=== PATIENT | female | born 1955 | race Caucasian/White ===

== ENCOUNTER 2018-11-29 09:43 | Emergency (ER) | payer BC, SELFPAY ==
[2018-11-29 09:45] VITALS: BP 211/95; PULSE 79; RESP 16; TEMP 36.6; O2SAT 99; BMI 28.7
--- NOTE | 2018-11-29 09:58 | ED.GENADULT ---
HPI - General Adult General Chief complaint: Skin/Abscess/Foreign Body Stated complaint: right pinky cut Time Seen by Provider: 11/29/18 09:53 Source: patient Mode of arrival: ambulatory Limitations: no limitations History of Present Illness HPI narrative: patient is a [id number] 63-year-old female here for evaluation of a cut/ injury to her right hand. She states that last evening she got her hand caught in a folding chair. She states that when she tried to pull her hand out she thought that she did more damage. She stated that her last tetanus shot was in the past 5 years. Did wash the hand out. Came in this morning for evaluation. Related Data Home Medications Medication Instructions Recorded Confirmed ACETAMINOPHEN 325 mg PO Q4HP PRN #0 05/10/16 fenofibrate 160 mg PO QDAY #0 tab 05/10/16 Previous Rx's Medication Instructions Recorded albuterol sulfate [Ventolin HFA] 2 puff INH Q4HP PRN #1 ea 09/21/17 benzonatate [Tessalon Perles] 100 mg PO Q8HP PRN #14 cap 09/21/17 prednisone 40 mg PO AMCC #8 tab 09/21/17 sulfamethoxazole-trimethoprim 1 tab PO BID #14 tab 09/21/17 cephalexin [Keflex] 500 mg PO BID 7 Days #14 cap 11/29/18 Allergies Allergy/AdvReac Type Severity Reaction Status Date / Time No Known Drug Allergies Allergy Verified 11/29/18 09:59 Review of Systems Constitutional Denies fever(s) Musculoskeletal Comments: Right hand pain and swelling Integumentary/Breasts Comments: Cut to the right hand Neurologic Comments: No numbness tingling to the right hand Hematologic/Lymphatic Denies easy bleeding and Denies easy bruising PFS Medical History Healthy adult (Acute) Social History lives independently: Yes Smoking Status: Current every day smoker Social History lives independently: Yes Smoking Status: Current every day smoker Exam Initial Vital Signs Initial Vital Signs: Vital Signs Temperature 97.9 F 11/29/18 09:45 Pulse Rate 79 11/29/18 09:45 Respiratory Rate 16 11/29/18 09:45 Blood Pressure 211/95 H 11/29/18 09:45 Pulse Oximetry 99 11/29/18 09:45 Const General: cooperative, comfortable, well developed, well groomed and No acute distress Orientation: alert, awake and oriented x3 Cardio Pulses: radial pulses present on the right Skin Other: Patient with a 3 cm laceration in the webspace between the ring and little finger on the right hand. No active bleeding. Neuro Other: Sensation intact to light touch right upper extremity Extrem Other: Patient with a swollen right hand mostly on the dorsum aspect. Does have tenderness to palpation throughout. Psych Appearance: grossly normal and well kempt Procedures Laceration Repair Laceration 1: Site: hand Side (If applicable): right Size (cm): 3 Description: linear and clean Depth: simple, single layer Local Anesthetic: lidocaine 1% Amount of anesthesia used (mL): 5 Pre-repair: wound explored, irrigated extensively and deep structures intact Skin layer closed with: nylon Size (cm): 4-0 Number of sutures: 7 Technique: simple, interrupted Orthopedic Splinting/Casting Injury #1: Side: right Upper Extremity Injury Location: hand Upper Extremity Immobilizer: ulnar gutter Post splinting neuro exam: intact Post splinting vascular exam: intact Placed by: Provider Course Orders Ordered: ED Orders 11/29/18 09:57 XR hand RT min 3V Stat Discontinued Medications Cefazolin Sodium/Dextrose (Ancef) 2 gm in 100 mls @ 200 mls/hr IV NOW ONE Stop: 11/29/18 10:43 Last Admin: 11/29/18 10:45 Dose: 200 mls/hr Vital Signs - 8 hr 11/29/18 09:45 11/29/18 10:22 Temperature 97.9 F Pulse Rate 79 70 Respiratory Rate 16 14 Blood Pressure 211/95 H Blood Pressure [Left Arm] 205/85 H Pulse Oximetry 99 Medical Decision Making Imaging Data X-ray hand: Radiologist's impression: [address] [address] XRay Report Signed Patient: Kaitlyn Ashley JMR#: [id number] : 5Acct:[id number] Age/Sex: 63 / FDate of Service: 11/29/18 Loc: ED Accession Number: [id number] Procedure: XR hand RT min 3V Ordering Provider: Alvaro Prieto D.O. PROCEDURE: XR HAND RT MIN 3V INDICATIONS: Right hand pain after injury TECHNIQUE: 3 views of the hand(s) acquired. COMPARISON: None. FINDINGS: Bones: Moderately displaced oblique fracture of the mid and distal aspects of the 5th metacarpal. Mild joint space narrowing and periarticular osteophyte formation at the scaphotrapezial and 1st carpal metacarpal joints. Soft tissues: No suspicious soft tissue calcifications. IMPRESSION: 5th metacarpal fracture. Dictated by: Hakan Concepcion M.D. on 11/29/2018 at 10:08 Approved by: Hakan Concepcion M.D. on 11/29/2018 at 10:09 [facility] Narrative Medical decision making narrative: Patient is a cut in the webspace between the ring and little finger of the right hand. This was closed as described above. She does have a 5th metacarpal fracture. This is placed in an ulnar gutter splint. Patient is neurologically intact. She was given care instructions return precautions. She will follow up with the Orthopedic Department. Patient was given antibiotics here in the emergency department will send home with antibiotics. She expressed understanding and agreement with plan. Discharge Plan Departure Patient Disposition: Home Clinical Impression: Laceration of hand, right Qualifiers: Encounter type: initial encounter Foreign body presence: without foreign body Qualified Code(s): S61.411A - Laceration without foreign body of right hand, initial encounter Closed fracture of fifth metacarpal bone Qualifiers: Encounter type: initial encounter Metacarpal location: shaft Fracture alignment: displaced Laterality: right Qualified Code(s): S62.326A - Displaced fracture of shaft of fifth metacarpal bone, right hand, initial encounter for closed fracture Instructions: DI for a Hand Fracture, DI for Laceration Repair -- Finger, How to Take Care of Your Splint Activity Restrictions/Additional Instructions: Recommend you contact the [facility]opedic group at [phone] for a follow-up. The stitches that were placed due need to be removed in 7-10 days. This can be done when your splint is transition to a cast. The splint does need to stay on. You need to keep it clean and keep it dry. Contact her primary care doctor for follow-up. Take the antibiotics as directed. Prescriptions: New cephalexin [Keflex] 500 mg capsule 500 mg PO BID 7 Days Qty: 14 RF: 0 No Action ACETAMINOPHEN 325 mg PO Q4HP PRNQty: 0 RF: 0 fenofibrate 160 MG tablet 160 mg PO QDAY Qty: 0 RF: 0 prednisone 20 MG tablet 40 mg PO AMCC Qty: 8 RF: 0 sulfamethoxazole-trimethoprim 800 MG/160 MG tablet 1 tab PO BID Qty: 14 RF: 0 benzonatate [Tessalon Perles] 100 MG capsule 100 mg PO Q8HP PRNQty: 14 RF: 0 albuterol sulfate [Ventolin HFA] 90 MCG/PUFF HFA aerosol inhaler 2 puff INH Q4HP PRNQty: 1 RF: 0 Referrals: Amanda Soliz MD [Primary Care Provider] -
[2018-11-29 10:22] VITALS: BP 205/85; PULSE 70; RESP 14
[2018-11-29] MEDS: CEFAZOLIN 2 GM/100 ML FROZ.PIGGY IV (10:45)
[2018-11-29 11:16] VITALS: BP 189/89; PULSE 72; RESP 14
== END 2018-11-29 11:19 | disposition home or self-care (01) ==
PROVIDERS: Emergency Provider Emergency Medicine; PCP Internal Medicine
DX: S62.326A Displaced fracture of shaft of fifth metacarpal bone, right hand, initial encounter for closed fracture (principal); S61.411A Laceration without foreign body of right hand, initial encounter
CPT/HCPCS: 12002; 73130; 96365; 99283; 99284; J0690

== ENCOUNTER → 2019-04-21 09:40 | Outpatient (CLI) | payer BC, SELFPAY | PROVIDERS: PCP Internal Medicine; Visit Provider Physician Assistant | DX: S91.302A Unspecified open wound, left foot, initial encounter (principal) | CPT/HCPCS: 87070; 87205 ==

== ENCOUNTER → 2019-08-16 18:19 | Outpatient (ROUT) | payer BC, SELFPAY ==
[2019-08-16 19:07] LABS: Alanine Aminotransferase 37 IU/L (<35); Albumin 4.4 g/dL (3.5-5.0); Albumin Globulin Ratio 1.6 (1.0-2.8); Alkaline Phosphatase 87 U/L (38-126); Aspartate Aminotransferase 41 IU/L (14-36); BUN Creatinine Ratio 21.4 (6-22); Bilirubin Total 0.8 mg/dL (0.2-1.3); Blood Urea Nitrogen 15 mg/dL (7-17); Calcium 9.9 mg/dL (8.4-10.2); Carbon Dioxide 28 mmol/L (22-32); Chloride 104 mmol/L (98-107); Cholesterol 257 mg/dL (140-199); Estimated Glomerular Filt Rate > 60.0 mL/min (>60); Globulin 2.8 g/dL (1.7-4.1); Glucose 111 mg/dL (80-110); HDL Cholesterol 85 mg/dL (40-60); HEMOLYSIS < 15 (0-50); LDL Cholesterol Calculated 124 mg/dL (<100); Sodium 141 mmol/L (137-145); Total Protein 7.2 g/dL (6.3-8.2); Triglycerides 242 mg/dL (35-150)
== END ==
PROVIDERS: PCP Internal Medicine; Visit Provider Internal Medicine
DX: I10 Essential (primary) hypertension (principal); E78.2 Mixed hyperlipidemia
CPT/HCPCS: 80053; 80061

== ENCOUNTER → 2020-03-27 08:29 | Outpatient (CLI) | payer BC, SELFPAY ==
[2020-03-27 10:37] LABS: Alanine Aminotransferase 101 IU/L (<35); Albumin 3.6 g/dL (3.5-5.0); Albumin Globulin Ratio 1.2 (1.0-2.8); Alkaline Phosphatase 158 U/L (38-126); Aspartate Aminotransferase 127 IU/L (14-36); BUN Creatinine Ratio 16.5 (6-22); Bilirubin Total 0.7 mg/dL (0.2-1.3); Blood Urea Nitrogen 17 mg/dL (7-17); Calcium 8.4 mg/dL (8.4-10.2); Carbon Dioxide 22 mmol/L (22-32); Chloride 107 mmol/L (98-107); Cholesterol 306 mg/dL (140-199); Estimated Glomerular Filt Rate 53.9 mL/min (>60); Glucose 123 mg/dL (80-110); HDL Cholesterol 52 mg/dL (40-60); HEMOLYSIS < 15 (0-50); Potassium 4.5 mmol/L (3.4-5.1); Sodium 137 mmol/L (137-145); Total Protein 6.6 g/dL (6.3-8.2)
[2020-03-27 11:10] LABS: Triglycerides 1890 mg/dL (35-150)
== END ==
PROVIDERS: PCP Internal Medicine; Referring Provider Internal Medicine; Visit Provider Internal Medicine
DX: E78.2 Mixed hyperlipidemia (principal); I10 Essential (primary) hypertension
CPT/HCPCS: 36415; 80053; 80061

== ENCOUNTER → 2020-11-01 12:31 | Outpatient (CLI) | payer OTHER, SELFPAY ==
[2020-11-01 13:43] LABS: Add Manual Diff / Slide Review NO; Basophils Absolute Auto 0 /uL (0-100); Basophils Percent Auto 0.5 % (0-2); Eosinophils Absolute Auto 100 /uL (0-450); Eosinophils Percent Auto 0.9 % (2-4); Hemoglobin 13.5 g/dL (12.0-16.0); Lymphocytes Absolute Auto 1700 /uL (1100-4500); Mean Corpuscular HGB Conc 34.7 % (30-36); Mean Corpuscular Hemoglobin 33.9 PG (26-34); Mean Corpuscular Volume 97.8 fL (80-100); Monocytes Absolute Auto 500 /uL (0-900); Monocytes Percent Auto 7.6 % (3-14); Neutrophils Absolute Auto 4300 /uL (1500-7000); Platelet Count 251 X10^3/uL (150-400); Red Blood Cell Count 3.99 X10^6/uL (4.0-5.2); Red Cell Distribution Width 12.1 % (11.6-14.8); White Blood Cell Count 6.6 X10^3/uL (4.5-11.0)
[2020-11-01 13:51] LABS: Hemoglobin A1C% w Est Avg Glu 5.7 % (4.0-6.0)
[2020-11-01 14:36] LABS: Alanine Aminotransferase 46 IU/L (<35); Albumin 4.5 g/dL (3.5-5.0); Albumin Globulin Ratio 1.5 (1.0-2.8); Alkaline Phosphatase 77 U/L (38-126); Aspartate Aminotransferase 48 IU/L (14-36); BUN Creatinine Ratio 23.2 (6-22); Bilirubin Total 1.5 mg/dL (0.2-1.3); Blood Urea Nitrogen 16 mg/dL (7-17); Calcium 9.8 mg/dL (8.4-10.2); Carbon Dioxide 25 mmol/L (22-32); Chloride 102 mmol/L (98-107); Cholesterol 258 mg/dL (140-199); Estimated Glomerular Filt Rate > 60.0 mL/min (>60); Glucose 118 mg/dL (80-110); HDL Cholesterol 90 mg/dL (40-60); HEMOLYSIS < 15 (0-50); LDL Cholesterol Calculated 134 mg/dL (<100); Potassium 4.4 mmol/L (3.4-5.1); Sodium 135 mmol/L (137-145); Total Protein 7.5 g/dL (6.3-8.2); Triglycerides 169 mg/dL (35-150)
== END ==
PROVIDERS: PCP Internal Medicine; Referring Provider Internal Medicine; Visit Provider Orthopaedic Surgery Adult Reconstructive Orthopaedic Surgery
DX: I10 Essential (primary) hypertension (principal); E78.2 Mixed hyperlipidemia; R73.01 Impaired fasting glucose; Z01.812 Encounter for preprocedural laboratory examination; R73.9 Hyperglycemia, unspecified
CPT/HCPCS: 36415; 80053; 80061; 83036; 85025

== ENCOUNTER → 2020-11-18 14:30 | Outpatient (CLI) | payer OTHER, SELFPAY ==
[2020-11-18 17:15] LABS: COVID19 -Nasal RAPID Negative (Negative)
== END ==
PROVIDERS: PCP Internal Medicine; Visit Provider Physician Assistant
DX: Z01.812 Encounter for preprocedural laboratory examination (principal); Z20.822 Contact with and (suspected) exposure to COVID-19
CPT/HCPCS: 87635

== ENCOUNTER 2020-11-20 06:08 | Inpatient (IN) | payer OTHER, MEDICARE, SELFPAY ==
[2020-11-20] VITALS (16 sets, daily range): BP systolic 98–162; BP diastolic 46–79; PULSE 49–65; RESP 9–19; TEMP 36–36.6; O2SAT 90–99; BMI 26.4
--- NOTE | 2020-11-20 | DI.RAD.S_ITS ---
PROCEDURE: XR PELVIS 1-2V INDICATIONS: POST OP CUP REPLACEMENT TECHNIQUE: 1 view of the lower pelvis acquired. COMPARISON: [facility], , XR PELVIS 1-2V, 11/20/2020, 9:25. FINDINGS: Bones: Patient is status post left hip arthroplasty, with hardware components in expected positions. The hip joint appears congruent. The visualized bony structures appear intact. There is also prior right total hip arthroplasty without evidence of gross hardware complication. Soft tissues: Overlying postoperative changes are noted. No suspicious soft tissue densities. IMPRESSION: Postop changes from left total hip arthroplasty with anatomic left hip alignment. Dictated by: Rex George M.D. on 11/20/2020 at 12:22 Approved by: Rex George M.D. on 11/20/2020 at 12:23
--- NOTE | 2020-11-20 06:00 | DI.RAD.S_ITS ---
PROCEDURE: XR PELVIS 1-2V INDICATIONS: INNER OP FILMS TECHNIQUE: Intra-operative view of the pelvis and hip acquired. COMPARISON: [facility], , PELVIS 1 OR 2 VIEWS, 06/30/2007, 14:53. FINDINGS: Bones: Intraoperative study was performed. On the initial x-ray the femoral head prosthesis was dislocated superiorly. On the next image the femoral head appears well placed. There are radiopaque linear densities, possibly sutures overlying the left hip on both images. Hemostats are also noted overlying the operative field. Soft tissues: Overlying surgical retractors are present, along with other intraoperative changes. IMPRESSION: Intraoperative images of left hip revision. Dictated by: Mukul Medel M.D. on 11/20/2020 at 10:53 Approved by: Mukul Medel M.D. on 11/20/2020 at 10:55
[2020-11-20] MEDS: PREGABALIN 75 MG CAPSULE PO (06:52)
[2020-11-20] MEDS: ACETAMINOPHEN 325 MG TABLET 975 MG PO (06:52)
[2020-11-20] MEDS: MELOXICAM 7.5 MG TABLET 15 MG PO (06:53)
[2020-11-20] MEDS: LACTATED RINGERS 1,000 ML 42 ML IV ×2 (07:22→09:34)
[2020-11-20] MEDS: VANCOMYCIN 1,000 MG/200 ML PIGGYBACK 200 MG IV ×2 (07:43→22:00)
--- NOTE | 2020-11-20 07:45 | PM.PREOP ---
Pre-operative Note COVID-19 COVID-19 status: Negative Result date/Date tested (Pos, Neg/Pending): 11/18/20 Interval Note History & Physical reviewed/Exam performed by Physician: Yes Changes to H&P: No H&P completed within 30 days and has changed as indicated here:: Plan for revision left CONSTANTINE, acetabular component
[2020-11-20] MEDS: CEFAZOLIN 2 GM/100 ML FROZ.PIGGY IV ×2 (08:03→18:51)
[2020-11-20] MEDS: TRANEXAMIC ACID 1,000 MG VIAL 1000 MG INJ ×2 (08:24→10:41)
--- NOTE | 2020-11-20 08:38 | SUR.OPER ---
Lateral on padded OR bed. Gel axillary roll. Arms secured on padded armboard with pillow supporting top arm. Padded hip positioner braces x4 - anterior and posterior chest and pelvis. Additional gel pad used anterior pelvis. Gel pad under bottom leg from knee to foot and secured with tape over sheet.
[2020-11-20] MEDS: ROPIVACAINE 0.5% PF 5 MG/ML 20ML VIAL 60 ML INJ (08:50)
[2020-11-20] MEDS: KETOROLAC 30 MG/ML VIAL IV (08:52)
[2020-11-20] MEDS: MORPHINE 4 MG/ML INJ INJ (08:52)
[2020-11-20] MEDS: SODIUM CHLORIDE IRRIG SOLUTION 250 ML, POVIDONE-IODINE SPONGE STICKS 1 APPLIC IRR (08:53)
[2020-11-20] MEDS: VANCOMYCIN 1,000 MG VIAL 1000 MG TOP (10:33)
--- NOTE | 2020-11-20 11:00 | PM.OP.1 ---
Operative Date/Time/Diagnoses Date of procedure: 11/20/20 Time of procedure: 11:00 Pre-op diagnosis: failed left CONSTANTINE Post-op diagnosis: same Procedure & Clinicians Procedure: Revision acetabular component left CONSTANTINE Same procedure as scheduled: Yes Indications: Osteolysis behind the acetabular cup, chronic pain left hip, eccentric wear of the polyethylene liner Surgeon: Oneil Lim Filler Wiper: Celestino Weber Anesthesia Type: General and Spinal Operative Notes Findings: Osteolysis behind the acetabular cup, there was also metalosis staining on around the hip abductors. Failed retention ring for the polyethylene liner. Grossly unstable polyethylene liner. Eccentric wear of the polyethylene Closure Type: primary Specimen(s): none sent Prosthetic devices, grafts, tissues, transplants, or devices: Mike G7 cup 60 mm liner size G 2x 40 mm screws 1x 15 mm screw Dual mobility liner size G bearing size 46 Dual mobility polyethylene liner 46 mm outside diameter 28 mm inside diameter Depuy 28 mm head +3. 14/16 taper Estimated Blood Loss (mL): 500 Procedure in detail: Patient was met in the preoperative holding area where the site and side of surgery were marked by . Informed consent had been reviewed with the PA in clinic was also reviewed the preoperative holding area and discussion of the risks and benefits pursued. The risks include but are not limited to infection, dislocations, need for future surgeries, damage to local structures such as vessels and nerves, iatrogenic fracture, DVT, PE, etc.. Patient demonstrates understanding the risks and benefits and wishes to proceed. Patient was then brought back in the operating room where she received a spinal anesthetic. She was induced under general anesthesia she was then placed in the right lateral decubitus position. An axillary roll was placed. All bony prominences well well padded. The left lower extremity then prepped and draped in normal sterile fashion. A surgical time-out performed verifying the site and side of surgery as well as the name of the patient. At this point her old surgical incision was opened using a new 10. Blade. Electrocautery was then used to dissect down to the level of the ITB band. A new 10. Blade was then used to incise the ITB band and superior gluteal fascia. The gluteus diana fibers were split in length with her fibers. A Cobra was then placed underneath the gluteus medius and a vent hole was placed underneath the piriformis. The piriformis was then released off the back of the greater trochanter with a Woodbine blade. The short external rotators were then peeled down. The capsule was adherent to the piriformis and came down as part as a sleeve as well. The coronary capsule was tagged. At this point scar removal began. Copious amount of the intracapsular scar was removed much of this had metal oasis staining. There is also metallosis staining underneath the ITB band around the greater trochanter. The hip abductors themselves appear to be still intact. Once scar was removed as able the dislocated the hip and the ceramic head was then malleted off the trunnion. The trunnion itself was in good shape. A bent osteotome was then used to make a small pocket for the stem neck at the superior anterior junction of the cup. The stem was in shock and up into this position and a Cobra retractor was then used to keep it there. A 2nd Cobra retractors then placed over the posterior inferior aspect of the cup to give us good capsular exposure. At this point was noted that the polyethylene liner was grossly loose. This was then removed there was pieces of retention wire the head broke broken and then imbedded into the polyethylene and groove the inside of the cup. This number explant tool was then used to remove the cup. There was some bone loss at the anterior-inferior aspect of the cup between the spikes. Cup size was a 58 mm cup. There was a copious amount of osteolysis between the cup and the medial wall. Once the cup was removed there was essentially no bone until the medial wall. We began reaming with a 54 mm Reamer slowly up sizing taking care not to lose a more anterior wall. We reamed up to size 59 mm Reamer and selected a 60 mm cup. X-ray was brought in for cup positioning. I initial placement of the cup was 2 horizontal. I then added slightly more version and made the cut more vertical. Second x-ray was then taken to determine correct placement of the cup. 240 mm screws were placed both with good purchase. A 3rd screw was then placed as the rami screw and was a 15 mm screw. Trial liner was then placed. The hip was reduced sent to mobility trial was taken through range of motion. Stable in position of sleep and stable with hip flexion to 90? and internal rotation to approximately 75?. X-rays were brought in for leg lengths leg length appeared appropriate with a 28+ 3 head. The hip was then dislocated the trials were removed and the final to mobility metal liner size G was impacted making sure that the ring was fully flushed. A 28 mm +3 head was then Press-Fit into a to mobility polyethylene bearing which had a 28 mm inside diameter 46 mm outside diameter. This was then malleted onto the trunnion and reduced a final time. The wound was then irrigated with dilute Betadine solution which we allowed to sit for several minutes prior to being pulse lavage away with copious normal saline. 1 g of vancomycin powder was then placed in the wound. Local anesthetic was infiltrated into the periarticular soft tissues as well as the capsule. The capsule was repaired using an Ethibond in running fashion. The tag suture was removed. A drill hole was then placed to the greater trochanter and 1 limb of the piriformis tag was then placed through this hole using a Knowledge Factor suture Passer. The 2nd limb of the suture was then plasty the abductor tendon. This was then tied down to repair the capsule laterally and the piriformis repaired. The ITB band was then repaired using 1. Vicryl in interrupted fashion followed by 1. Vicryl in a running locking fashion the superior gluteal fascia. 2-0 Vicryl was then used in subcutaneous layer followed by shasta on skin an Aquacel dressing. Complications: none Post-operative Condition: stable Disposition: PACU Plan for aftercare: WBAT LLE, 24 hours post-op abx (ancef and vanc), posterior hip precautions, ASA 81mg BID for DVT prophylaxis
--- NOTE | 2020-11-20 11:49 | SUR.PHASEI ---
X-ray being taken, patient denies pain/nausea, drowsy, pleasant.
--- NOTE | 2020-11-20 12:18 | SUR.PHASEI ---
1201 to room 221, bed down and locked, call light within reach. bags x2 to the room. Pt awake/drowsy, pleasant, denies pain/nausea. Report given, pt requested more ice chips, water. Pleasant. SCDs on. No questions from patient or staff. Stable.
[2020-11-20] MEDS: LACTATED RINGERS 1,000 ML 125 ML IV (13:00)
--- NOTE | 2020-11-20 13:10 | PT.IIE ---
Current Diagnoses Pain due to internal orthopedic prosthetic devices, implants and grafts, initial encounter (11/20/20) Presence of left artificial hip joint (11/20/20) Surgery Performed Operation Date: 11/20/20 07:45 Actual Procedures p Total Hip Arthroplasty Revision- acetabulum, liner and head(Left) - Oneil Lim MD Surgical History (Last Updated 11/11/20 @ 10:08 by Lynne Turner, RN) History of total hip arthroplasty Medical History (Last Updated 11/11/20 @ 10:08 by Lynne Turner, RN) Borderline diabetes Cataract (lens) fragments in eye following cataract surgery, bilateral Healthy adult History of sinusitis Hypertension Postmenopausal Physical Therapy Inpatient Evaluation/Re-Eval M1 PT/OT-IP Prior Functional Status Start: 11/20/20 14:14 Freq: NEEDED Status: Active Protocol: Document 11/20/20 13:10 AB (Rec: 11/20/20 14:34 AB [id number]) Medical Review Prior Functional Status Medical History Reviewed Yes Communication able to make needs known Mobility and Gait pt stated that she is independent with all mobiltiies and ambulation without AD indoors but uses a SPC outdoors on and off Social History Household Members none Living Arrangements Mobile home Number of Floors (Floors) One Floor Number of Stairs To Enter/Railing? 5 steps to enter without rails but has L side bar by the door Home Environment High Toilet,Walk in Shower Home Equipment Front Wheel Walker,Straight Cane,Shower Seat without Backrest,Hand Held Shower, Chair Frame Builder,Grab Bars Near Toilet Additional Social History Comment pt stated that her girlfriend will stay with her for a few days to assist her M2 PT-IP Current Condition Start: 11/20/20 14:14 Freq: NEEDED Status: Active Protocol: Document 11/20/20 13:10 AB (Rec: 11/20/20 14:34 AB [id number]) Physical Therapy Current Condition Current Condition Evaluation Date 11/20/20 Treatment Diagnosis s/p L CONSTANTINE revision posterior approach; difficulty in walking Onset Date 11/20/20 Precautions Posterior Hip Precautions No Hip Flexion > 90 degrees,No Hip Internal Rotation,No Hip Adduction Weight Bearing Status Weight Bearing Status Weight Bear as Tolerated Allowed Weight Bearing Amount (enter % LLE WBAT or #) (%) M3 PT-IP Subjective Start: 11/20/20 14:14 Freq: NEEDED Status: Active Protocol: Document 11/20/20 13:10 AB (Rec: 11/20/20 14:34 AB [id number]) Subjective Physical Therapy Visit Type Type Initial Evaluation Visit Start Time 13:10 Visit Stop Time 13:59 Total Visit Minutes 49 Number of MUD MIXER HELPER Visits 0 Physical Therapy Visit Comments Patient Comments pt is agreeable to do PT Therapy Pain Assessment Pain Present Pain Present Denied Pain M4 PT-IP Mobility and Gait Start: 11/20/20 14:14 Freq: NEEDED Status: Active Protocol: Document 11/20/20 13:10 AB (Rec: 11/20/20 14:34 AB [id number]) PT-Bed Mobility Assessment Supine to Sit Supine to Sit Minimal Assistance Sit to Supine Sit to Supine Standby Assistance PT-Transfer Assessment Sit to and From Stand Sit to and from Stand Moderate Assistance,1 Person Assistance,Use of Upper Extremities Equipment Transfer Assistive Device Gait Belt,Front Wheeled Walker Orthotic/Prosthetic Devices or Brace: No Comments Mobility Comments educated on posterior hip precautions. BP in supine 133 /72. completed supine to sit min A and cues. pt was able to sit on EOB CGA. c/o slight lightheadedness. asked nurse for SBA. completed sit to stand mod A and cues. tolerated ~ 10 sec of standing and stated that she has to sit down due to lightheadedness. mod A for descent to EOB. BP checked in sittin/72. bed pad needs to be changed and pt agreed to stand again requiring mod A and cues. instructed to take side steps towards HOB requiring max A and cues. pt with not much LLE control and needs assist for stability. pt continues to c/o lightheadedness and cold sweats. completed sit to supine SBA. positioned pt in bed. abductor pillow on. BP checked again: 125/64. call light and table placed within reach. nurse in room with pt. Gait Assessment Gait Gait Assistance Required: Maximum Assistance Distance (Feet) 2 Able to Maintain Weight Bearing Status Yes During Gait Assistive Devices Assistive Device Gait Belt,Front Wheeled Walker Orthotic/Prosthetic Devices or Brace: No Gait Deviations General Gait Pattern Antalgic,Decreased Stride Length,Decreased Feet Clearance Factors Limiting Gait Function Factors Limiting Gait Function Decreased Activity Tolerance, Decreased Sensation,Decreased Strength,Difficulty Following Directions,Poor Balance,Poor Safety Awareness Comments Gait Comments ishaan stepping to HOB PT-Balance Assessment Sitting Balance and Reactions Static Sitting Balance Ability Good Dynamic Sitting Balance Ability Good Standing Balance and Reactions Static Standing Balance Ability Poor Dynamic Standing Balance Ability Poor Device Used FWW M5 PT-IP Objective Assessments Start: 11/20/20 14:14 Freq: NEEDED Status: Active Protocol: Document 11/20/20 13:10 AB (Rec: 11/20/20 14:34 AB [id number]) Orientation Orientation/Cognition Level of Alertness Alert Orientation Name,Place,Situation Safety Awareness Decreased Safety Awareness Memory Description Short Term Impaired Gross Range of Motion Lower Extremity ROM Assessment Within Functional Limits Strength Lower Extremity Strength Assessment Left Impaired Hip 3+/5 Knee 4-/5 Sensation Assessment Comments Sensation Comments stated that she has sensation on BLE but during standing, stated that there is still slight numbness Muscle Tone Muscle Tone WNL Yes M6 PT-IP Treatment Start: 11/20/20 14:14 Freq: NEEDED Status: Active Protocol: Document 11/20/20 13:10 AB (Rec: 11/20/20 14:34 AB [id number]) Physical Therapy Treatment Education Education Provided Precautions,Weight Bearing Status,Post-Op Packet,Safety M7 PT-IP Assessment and Plan Start: 11/20/20 14:14 Freq: NEEDED Status: Active Protocol: Document 11/20/20 13:10 AB (Rec: 11/20/20 14:34 AB [id number]) PT Summary Assessment and Plan Potential Rehabilitation Potential Fair Status of Condition at Evaluation Evolving Summary Impairments Pain,ROM,Strength,Balance, Coordination,Sensation,Tone, Cognition,Bed Mobility, Transfers,Gait,Activity Tolerance Assessment Summary pt requiring mod to max A with mobility and was not able to tolerate much. pt just had surgery this morning. will continue to assess mobility progress. pt plans to go home and her friend to assist her. When appropriate, will conduct caregiver training as well as stair climbing training. will continue to assess progress. Goals Bed Mobility Goal Independent Transfer Goal Independent,Front Wheeled Walker Gait Goal Independent,Front Wheel Walker Gait Distance 150 Other Goals up/down 3 steps SPC/FUNDRAISING ASSISTANT min A Days to Meet Goals 5 Frequency of Treatment Frequency Of Treatment Twice a Day Treatment Plan Physical Therapy Treatment Plan Bed Mobility Training,Transfer Training,Gait Training, Therapeutic Exercise,Balance Retraining,Post Op Education, Discharge Planning,Hot or Cold Pack,Neuromuscular Re-ed, Coordination Retraining,Manual Therapy Recommendations To Nursing Amount of Assist Needed PT/OT Assist Only Discharge Recommendations PT Discharge Recommendations Home with Assistance,Home Health,SNF Rehab,Outpatient PT Other Discharge Recommendations depending on progress: SNF vs home with assistance/HHPT or outpt PT Transportation Needs at Discharge Wheelchair/Cabulance
[2020-11-20] MEDS: ONDANSETRON 4 MG/2 ML INJ IV (13:53)
--- NOTE | 2020-11-20 14:25 | PC.NURSE ---
AM Shift note. pt arrived to room from PACU around 1200. AO and receptive to care. Denying pain and just c/o being cold so we provided a couple warm blankets. Left hand PIV infusing LR at 125/hr. Up with PT around 1350, stood at bedside and pt felt cool, clammy and started sweating, BP checked x2 and WNL. Changed gown and linen due to incontinent void (pt unaware). pt requested to lay back in bed. 4mg IV Zofran administered at 1353 for nausea, pt resting with eyes closed upon re-assessment.
[2020-11-20 14:30] LABS: Add Manual Diff / Slide Review NO; Basophils Absolute Auto 0 /uL (0-100); Basophils Percent Auto 0.2 % (0-2); Eosinophils Absolute Auto 0 /uL (0-450); Hematocrit 34.3 % (36-46); Hemoglobin 11.6 g/dL (12.0-16.0); Lymphocytes Absolute Auto 1300 /uL (1100-4500); Lymphocytes Percent Auto 7.4 % (25-40); Mean Corpuscular HGB Conc 33.8 % (30-36); Mean Corpuscular Hemoglobin 33.6 PG (26-34); Mean Corpuscular Volume 99.3 fL (80-100); Monocytes Absolute Auto 200 /uL (0-900); Neutrophils Absolute Auto 15700 /uL (1500-7000); Neutrophils Percent Auto 91.4 % (50-75); Platelet Count 320 X10^3/uL (150-400); Red Blood Cell Count 3.45 X10^6/uL (4.0-5.2); White Blood Cell Count 17.2 X10^3/uL (4.5-11.0)
[2020-11-20] MEDS: ONDANSETRON 4 MG ODT PO (19:21)
[2020-11-20] MEDS: ASPIRIN EC 81 MG TABLET PO (21:58)
[2020-11-20] MEDS: DOCUSATE 100 MG CAPSULE PO (21:58)
[2020-11-20] MEDS: ACETAMINOPHEN 325 MG TABLET 650 MG PO (21:59)
[2020-11-21] MEDS: LACTATED RINGERS 1,000 ML 125 ML IV (01:33)
[2020-11-21] MEDS: CEFAZOLIN 2 GM/100 ML FROZ.PIGGY IV (02:20)
[2020-11-21 05:35] VITALS: BP 107/57; PULSE 60; RESP 18; TEMP 36.5; O2SAT 98
[2020-11-21 05:42] LABS: Hematocrit 28.6 % (36-46); Hemoglobin 9.6 g/dL (12.0-16.0)
[2020-11-21] MEDS: OXYCODONE IR 5 MG TABLET PO ×2 (07:38→13:23)
--- NOTE | 2020-11-21 08:37 | P.PN_ITS ---
Subjective Subjective Date Patient Seen: 11/21/20 Time Patient Seen: 08:37 Interval history: POD #1 s/p revision CONSTANTINE with Dr. Lim. Patient's doing well this AM. No complaints of pain. She did have emesis and nausea overnight. Exam Vital Signs (past 8 hours): - 11/21/20 05:35 Temperature 97.7 F Pulse Rate 60 Respiratory Rate 18 Blood Pressure 107/57 L Pulse Oximetry 98 Oxygen Delivery Method Room Air Oxygen Flow Rate 0 Narrative Exam Narrative: Patient sitting in bedside chair in NAD. She is alert and oriented X3. Calves are soft, compressible, and nontender bilaterally. DP pulses 2+. She is able to actively dorsiflex and plantarflex. SILT throughout BLEs. Dressing is CDI. Objective Labs Result Diagrams: 11/21/20 05:07 Labs: Laboratory Results - last 24 hr 11/20/20 11/21/20 14:15 05:07 WBC 17.2 H RBC 3.45 L Hgb 11.6 L 9.6 L Hct 34.3 L 28.6 L MCV 99.3 MCH 33.6 MCHC 33.8 RDW 12.0 Plt Count 320 Neut % (Auto) 91.4 H Lymph % (Auto) 7.4 L [place] % (Auto) 1.0 L Eos % (Auto) 0.0 L Baso % (Auto) 0.2 Neut # (Auto) 61224 H Lymph # (Auto) 1300 [place] # (Auto) 200 Eos # (Auto) 0 Baso # (Auto) 0 PFSH Medical History Borderline diabetes Cataract (lens) fragments in eye following cataract surgery, bilateral Healthy adult History of sinusitis Hypertension Postmenopausal Surgical History History of total hip arthroplasty Social History household members: none lives independently: Yes Smoking Status: Current every day smoker alcohol intake: former substance use type: does not use Assessment & Plan Post-op Postoperative Procedures: Procedures Operation Date: 11/20/20 07:45 Actual Procedures Side Surgeon p Total Hip Arthroplasty Revision- acetabulum, liner and head Left Oneil Lim MD Patient can mobilize with PT today. Posterior hip precautions. ASA for VTE prophylaxis. Continue current pain control.Patient will likely DC home today if she is mobilizing safely with adequate pain control. Quality VTE Deep Vein Thrombosis/Pulmonary Embolism Present on Admission: No
[2020-11-21 08:45] VITALS: BP 114/62; PULSE 59; RESP 18; TEMP 36.5; O2SAT 98
[2020-11-21] MEDS: ACETAMINOPHEN 325 MG TABLET 650 MG PO (09:51)
[2020-11-21] MEDS: ASPIRIN EC 81 MG TABLET PO (09:51)
[2020-11-21] MEDS: AMLODIPINE 5 MG TABLET PO (09:51)
[2020-11-21 09:52] VITALS: BP 114/62; PULSE 62
[2020-11-21] MEDS: FENOFIBRATE 145 MG TABLET PO (09:52)
[2020-11-21] MEDS: DOCUSATE 100 MG CAPSULE PO (09:52)
[2020-11-21] MEDS: LOSARTAN 50 MG TABLET 100 MG PO (09:52)
[2020-11-21 09:57] VITALS: BP 114/62; PULSE 62
[2020-11-21] MEDS: METOPROLOL ER 50 MG TABLET PO (09:57)
--- NOTE | 2020-11-21 10:18 | CM.DANOTE ---
Patient is a 65 year old female who was admitted on 11/20/20 for LTHA. Pt has [facility] and [facility] A for insurance and her PCP is Dr. Amanda Soliz. EMR was reviewed. Per Ortho MD, pt tolerated procedure well and may be stable for d/c later today pending further PT recommendations. Per PT yesterday, recommending SNF vs HH vs Outpt pending pt progress. SW met bedside with pt and explained role and she confirms she lives in a mobile home/ type setting outside of [place] at [address] where she has for a long time and has supportive friends that live nearby. Pt uses a cane and is independent at baseline and drives. Pt states that the gym in the community building is just opening back up after COVID restrictions and she plans to use the equipment for exercise and her friend Caitlyn plans to stay with her again and assist and motivate me to keep moving and getting back on my feet. Pt does not anticipate any further needs at d/c and preference is home via Caitlyn POV and to assist. Pt denies any hx of HH or SNF. Pt still needs to work on stairs today with PT as she has a couple to get into her home. Plan: SW to follow for further PT today towards determining safe d/c plan of home with friend Caitlyn to stay and outpt PT and any further identified discharge planning needs. [facility] Cornelius Discharge Planning/Care Management Advanced directive, confirm from FAMILY Start: 11/20/20 13:14 Freq: Q24H Status: Active Protocol: Document 11/20/20 19:10 AK (Rec: 11/20/20 19:18 AK [id number]) Advance Directive, confirm on record Time 19:10 Person contacted no one to bring Copy received No CM Discharge Assessment Start: 11/21/20 10:16 Freq: Status: Active Protocol: Document 11/21/20 10:17 BF (Rec: 11/21/20 10:18 BF [id number]) Discharge Planning Assessment Assigned County Or City Auditor [facility] Sethi Advance Directives? Yes Advance Directives on File No History Provided By Patient,Medical Record Has Patient been admitted in last 30 No days? Prior Living Arrangements Mobile home Household Members none Type of transporation used prior to Drives own vehicle admit Independent with ADL's Yes Is patient alert and oriented? Yes Caregiver for Another No Community Services used prior to Physical Therapy admission: Patient/Family Preference OP PT Therapy Barriers to Discharge No Discharge Plan Home Community Services Physical Therapy Transportation Arrangement Friend Caitlyn to transport and assist at d/c Referrals Initiated None needed Whiteboard Updated in Patient Room with Yes name and ext. # of County Or City Auditor Review Status In Process Please Provide Date Initial DC 11/21/20 Assessment Was Performed Next Review Type Continued Stay Review Pre-Anesthesia Assessment Start: 11/11/20 09:42 Freq: Status: Complete Protocol: Document 11/11/20 09:42 [facility] (Rec: 11/11/20 09:46 [facility] [id number]) Pre-Anesthesia Assessment Preferred Name Kaitlyn Patient Information Reviewed Via Chart Review,Phone Assessment Assessment Completed With Patient Diagnostic Results BMP/CMP,CBC,EKG,Other Comment A1c, covid Seen Specialist in Last 12 Months Yes Specialist Seen Orthopedist Preferred Language British Client Analyst Required No Height 182.88 cm Hearing Ability Normal Visual Assist Glasses Dentition Type Teeth, Natural Present,Teeth, Missing Other Aids No Comment reading glasses Hx Anesthesia Reactions No Hx Family Anesthesia Reaction No Hx Malignant Hyperthermia No Hx Blood Transfusions No Hx Blood Transfusion Reaction No Anesthesia Review Requested No 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 alcohol intake former alcohol intake frequency 0-2 drinks per day Alcohol Intake Frequency Other: quit Smoking Status Former smoker Tobacco type cigarettes Has it been 2 weeks or less since No patient quit smoking how long ago did patient quit smoking 2018 Substance Use Type does not use Pain Present Denied Pain Musculoskeletal Symptoms Abnormal Gait,Difficulty Walking,Joint Pain,Limited Range of Motion History of Falling (Recent or History of No ) Patient is completely paralyzed or No completely immobile Ambulatory Aid Crutches/cane/walker Prosthesis or Orthotic Device Cane Gait/Transferring Normal/bedrest/immobile Mental Status Oriented to own ability Comment uses cane intermittently Is patient on oxygen? No Does patient have CARLSON/SOB No Hx Sleep Apnea No CPAP/BIPAP use not prescribed Currently Taking a Beta Emili Yes: Metoprolol Can You Climb a Flight of Stairs Without No SOB Hx Chest Pain No Hx SOB No Hx Syncope or Dizziness No Anti-Coagulant Therapy No Has a Clerical Support No Cardiac Testing No Hx Pacemaker/ICD No Cardiac Clearance Received Not Applicable Diet Type At Home Low Carb dysphagia No Bladder Pattern Nocturia Urinary Catheter Present No Hx Urinary Self Catheterization No Diabetes No HgbA1C 5.7 Date 11/01/20 Patient No Lactating No Hx Drug Resistant Organism No Presence of External or Internal Medical Yes: Harpreet CONSTANTINE & IOLs Devices Have you had any close contact with No someone diagnosed with COVID-19? Are you experiencing any of these No symptoms symptoms? Evaluation/Screening for possible COVID- Yes 19 infection completed? Marital Status / Lives With none Prior Living Arrangements Mobile home Number of Floors (Floors) One Floor Number of Stairs To Enter/Railing? 4 steps into motor home, living at [facility] Plans - friend will come home with her upon discharge Support System Friend(s) Does the Patient Have Assistance After Yes Surgery Patient Discharge Plan Description Home Health Feels Safe in Current Environment Yes Been Physically Hurt or Threatened By a No Person in Current Environment Do you have thoughts of harming yourself None or others? Are you currently considering suicide? No Do you have a plan to hurt yourself or No Plan others? Do You Have Any Spiritual Beliefs That No May Affect Your HC Choices? Do You Have Any Cultural Practices That No May Affect Your HC Choices? Who Can We Speak to About Patient's Care Family & Friends Identifying Code for Release of Patient Decline Information Health Care Proxy/Next of Kin Caitlyn garcia Health Care Proxy Emergency Contact Name Caitlyn garcia Emergency Contact Advance Directives? Yes Advance Directives on File No Requested Patient Bring Advanced Yes Directives DOS Power of Examining Chair Assembler No PAC Instructions Assistance for 24 hours post- op,Do not shave/clip surgical site,Durable medical equipment ,Medications to take/avoid, Nasal antibiotic,No ETOH/ petroleum product on skin DOS, NPO,Post-op transportation,Pre -op antibiotic,Pre-surgical wash,Sensory aids,Sturdy shoes /comfortable clothes,Do not bring valuables and remove jewelry
--- NOTE | 2020-11-21 11:23 | PT.IPTN ---
Current Diagnoses Pain due to internal orthopedic prosthetic devices, implants and grafts, initial encounter (11/20/20) Presence of left artificial hip joint (11/20/20) Surgery Performed Operation Date: 11/20/20 07:45 Actual Procedures p Total Hip Arthroplasty Revision- acetabulum, liner and head(Left) - Oneil Lim MD Physical Therapy Treatment Note M2 PT-IP Current Condition Start: 11/20/20 14:14 Freq: NEEDED Status: Active Protocol: Document 11/20/20 13:10 AB (Rec: 11/20/20 14:34 AB [id number]) Physical Therapy Current Condition Current Condition Evaluation Date 11/20/20 Treatment Diagnosis s/p L CONSTANTINE revision posterior approach; difficulty in walking Onset Date 11/20/20 Precautions Posterior Hip Precautions No Hip Flexion > 90 degrees,No Hip Internal Rotation,No Hip Adduction Weight Bearing Status Weight Bearing Status Weight Bear as Tolerated Allowed Weight Bearing Amount (enter % LLE WBAT or #) (%) M3 PT-IP Subjective Start: 11/20/20 14:14 Freq: NEEDED Status: Active Protocol: Document 11/21/20 10:50 CLB (Rec: 11/21/20 11:44 CLB [id number]) Subjective Physical Therapy Visit Type Type Treatment Note Visit Start Time 10:50 Visit Stop Time 11:23 Total Visit Minutes 33 Number of WASTE SALVAGER Visits 1 Physical Therapy Visit Comments Patient Comments pt is agreeable to do PT Therapy Pain Assessment Pain When Pain Assessed During Weight Bearing Pain Present Pain Present Pain Reported Location Left Hip Intensity 3 Scale Used Numeric (0 - 10) M4 PT-IP Mobility and Gait Start: 11/20/20 14:14 Freq: NEEDED Status: Active Protocol: Document 11/21/20 10:50 CLB (Rec: 11/21/20 11:44 CLB [id number]) PT-Bed Mobility Assessment Supine to Sit Supine to Sit Standby Assistance Scooting Scooting to Edge of Bed Standby Assistance PT-Transfer Assessment Sit to and From Stand Sit to and from Stand Contact Guard Assistance,1 Person Assistance,Use of Upper Extremities Equipment Transfer Assistive Device Gait Belt,Front Wheeled Walker Orthotic/Prosthetic Devices or Brace: No Transfers Transfer Destination Chair Transfer Technique ambulated with FWW Transfer Ability Level of Assist Contact Guard Assistance,1 Person Assistance,Use of Upper Extremities Comments Mobility Comments Pt in bed upon arrival, BP in supine 130/59, pt able to get to EOB SBA. Pt BP in sitting 130/73, pt required CGA for sit to stand with cues for push off from bed for safety. Pt ambulated in room ~60ft w/ FWW/CGA with cues for step sequencing/walker use, pt with good follow through after verbal cues improving gait with small step thru gait pattern. Pt with good pain control during mobility. Pt sat in chair CGA. Pt left in chair with all needs within reach and friend Caitlyn with arrive at 12:30 for CGT. Gait Assessment Gait Gait Assistance Required: Contact Guard Assist,1 Person Assist Distance (Feet) 60 Able to Maintain Weight Bearing Status Yes During Gait Assistive Devices Assistive Device Gait Belt,Front Wheeled Walker Orthotic/Prosthetic Devices or Brace: No Gait Deviations General Gait Pattern Antalgic,Decreased Stride Length,Decreased Feet Clearance Factors Limiting Gait Function Factors Limiting Gait Function Decreased Activity Tolerance, Decreased Sensation,Decreased Strength,Difficulty Following Directions,Poor Balance,Poor Safety Awareness Comments Gait Comments see mobility comments M5 PT-IP Objective Assessments Start: 11/20/20 14:14 Freq: NEEDED Status: Active Protocol: Document 11/20/20 13:10 AB (Rec: 11/20/20 14:34 AB [id number]) Orientation Orientation/Cognition Level of Alertness Alert Orientation Name,Place,Situation Safety Awareness Decreased Safety Awareness Memory Description Short Term Impaired Gross Range of Motion Lower Extremity ROM Assessment Within Functional Limits Strength Lower Extremity Strength Assessment Left Impaired Hip 3+/5 Knee 4-/5 Sensation Assessment Comments Sensation Comments stated that she has sensation on BLE but during standing, stated that there is still slight numbness Muscle Tone Muscle Tone WNL Yes M6 PT-IP Treatment Start: 11/20/20 14:14 Freq: NEEDED Status: Active Protocol: Document 11/21/20 10:50 CLB (Rec: 11/21/20 11:44 CLB [id number]) Physical Therapy Treatment Exercises Exercises Ankle Pumps,Gluteal Sets,Quad Sets,Heel Slides,Supine Hip Abduction Education Education Provided Precautions,Weight Bearing Status,Post-Op Packet,Safety M7 PT-IP Assessment and Plan Start: 11/20/20 14:14 Freq: NEEDED Status: Active Protocol: Document 11/21/20 10:50 CLB (Rec: 11/21/20 11:44 CLB [id number]) PT Summary Assessment and Plan Potential Rehabilitation Potential Fair Status of Condition at Evaluation Evolving Summary Impairments Pain,ROM,Strength,Balance, Coordination,Sensation,Tone, Cognition,Bed Mobility, Transfers,Gait,Activity Tolerance Progress Towards Goals Progressing Toward Goals Assessment Summary Pt improving with all mobility requiring SBA for bed mobility and CGA for sit<> stand and ambulation. Pt friend Caitlyn with arrive at 12 :30 for CG training. Pt will need to climb stairs before d/ c. Goals Bed Mobility Goal Independent Transfer Goal Independent,Front Wheeled Walker Gait Goal Independent,Front Wheel Walker Gait Distance 150 Other Goals up/down 3 steps SPC/NUTRITIONISTS min A Days to Meet Goals 5 Frequency of Treatment Frequency Of Treatment Twice a Day Treatment Plan Physical Therapy Treatment Plan Bed Mobility Training,Transfer Training,Gait Training, Therapeutic Exercise,Balance Retraining,Post Op Education, Discharge Planning,Hot or Cold Pack,Neuromuscular Re-ed, Coordination Retraining,Manual Therapy Other Recommendations and Next Treatment CG training and stair climbing Focus . Recommendations To Nursing Amount of Assist Needed 1 Person Assist Discharge Recommendations PT Discharge Recommendations Home with Assistance, Outpatient PT Transportation Needs at Discharge Private Vehicle
[2020-11-21 12:32] VITALS: BP 128/67; PULSE 70; RESP 18; TEMP 36.5; O2SAT 97
--- NOTE | 2020-11-21 13:05 | PT.IPTN ---
Current Diagnoses Pain due to internal orthopedic prosthetic devices, implants and grafts, initial encounter (11/20/20) Presence of left artificial hip joint (11/20/20) Surgery Performed Operation Date: 11/20/20 07:45 Actual Procedures p Total Hip Arthroplasty Revision- acetabulum, liner and head(Left) - Oneil Lim MD Physical Therapy Treatment Note M2 PT-IP Current Condition Start: 11/20/20 14:14 Freq: NEEDED Status: Active Protocol: Document 11/20/20 13:10 AB (Rec: 11/20/20 14:34 AB [id number]) Physical Therapy Current Condition Current Condition Evaluation Date 11/20/20 Treatment Diagnosis s/p L CONSTANTINE revision posterior approach; difficulty in walking Onset Date 11/20/20 Precautions Posterior Hip Precautions No Hip Flexion > 90 degrees,No Hip Internal Rotation,No Hip Adduction Weight Bearing Status Weight Bearing Status Weight Bear as Tolerated Allowed Weight Bearing Amount (enter % LLE WBAT or #) (%) M3 PT-IP Subjective Start: 11/20/20 14:14 Freq: NEEDED Status: Active Protocol: Document 11/21/20 12:28 CLB (Rec: 11/21/20 13:44 CLB [id number]) Subjective Physical Therapy Visit Type Type Treatment Note Visit Start Time 12:26 Visit Stop Time 13:05 Total Visit Minutes 39 Notes Friend present for CG training . Number of HOSPITAL CLINIC ASSISTANT Visits 2 Physical Therapy Visit Comments Patient Comments pt is agreeable to do PT Therapy Pain Assessment Pain When Pain Assessed During Weight Bearing Pain Present Pain Present Pain Reported Location Left Hip Intensity 5 Scale Used Numeric (0 - 10) M4 PT-IP Mobility and Gait Start: 11/20/20 14:14 Freq: NEEDED Status: Active Protocol: Document 11/21/20 12:28 CLB (Rec: 11/21/20 13:44 CLB [id number]) PT-Bed Mobility Assessment Sit to Supine Sit to Supine Standby Assistance PT-Transfer Assessment Sit to and From Stand Sit to and from Stand Contact Guard Assistance,1 Person Assistance,Use of Upper Extremities Equipment Transfer Assistive Device Gait Belt,Front Wheeled Walker Orthotic/Prosthetic Devices or Brace: No Transfers Transfer Destination Bed,Wheelchair Transfer Technique ambulated with FWW Transfer Ability Level of Assist Standby Assistance,Contact Guard Assistance Comments Mobility Comments Pt in chair stood SBA and ambulated into bathroom. Pt performed sit<>stand SBA with use of wall rail. Pt then ambulated to sink standing SBA and washed hands and brushing her teeth. Pt sat in WC SBA and was transported to stairs. Pt stood SBA and climbed three steps with SPC and left rail with HOSPITAL CLINIC ASSISTANT for demonstration then second set of stairs pt required CGA with friend Caitlyn assisting. Pt returned to and back to room. Pt ambulated in lal ~ 100ft w/FWW CGA then SBA with small step thru gait pattern and cues to stay inside walker . Pt sat SBA on EOB and performed sit-supine SBA. Pt performed ther ex in supine and education on wedge with Caitlyn was conducted. Pt left in bed with all needs within reach and pt's friend Caitlyn present. Informed RN of pt mobility. Gait Assessment Gait Gait Assistance Required: Standby Assistance,Contact Guard Assist Distance (Feet) 100 Able to Maintain Weight Bearing Status Yes During Gait Assistive Devices Assistive Device Gait Belt,Front Wheeled Walker Orthotic/Prosthetic Devices or Brace: No Gait Deviations General Gait Pattern Antalgic,Decreased Stride Length,Decreased Feet Clearance Factors Limiting Gait Function Factors Limiting Gait Function Decreased Activity Tolerance, Decreased Sensation,Decreased Strength,Difficulty Following Directions,Poor Balance,Poor Safety Awareness Comments Gait Comments see mobility comments Stair Climbing Assessment Evaluation Level of Assist On Stairs Contact Guard Assistance,1 Person Assistance Devices Stair Climbing Assistive Devices Straight Cane,Left Railing Technique/Endurance Stair Climbing Direction Ascend and Descend Stair Climbing Technique Step to Step Number of Steps Climbed 3 Stair Climbing Set # Repetitions (reps) 2 Comments Stair Climbing Comments Pt able to climb three steps x2 with friend assisting with CGA. M5 PT-IP Objective Assessments Start: 11/20/20 14:14 Freq: NEEDED Status: Active Protocol: Document 11/20/20 13:10 AB (Rec: 11/20/20 14:34 AB [id number]) Orientation Orientation/Cognition Level of Alertness Alert Orientation Name,Place,Situation Safety Awareness Decreased Safety Awareness Memory Description Short Term Impaired Gross Range of Motion Lower Extremity ROM Assessment Within Functional Limits Strength Lower Extremity Strength Assessment Left Impaired Hip 3+/5 Knee 4-/5 Sensation Assessment Comments Sensation Comments stated that she has sensation on BLE but during standing, stated that there is still slight numbness Muscle Tone Muscle Tone WNL Yes M6 PT-IP Treatment Start: 11/20/20 14:14 Freq: NEEDED Status: Active Protocol: Document 11/21/20 12:28 CLB (Rec: 11/21/20 13:44 CLB [id number]) Physical Therapy Treatment Exercises Exercises Ankle Pumps,Gluteal Sets,Quad Sets,Heel Slides,Supine Hip Abduction Education Education Provided Precautions,Weight Bearing Status,Post-Op Packet,Safety M7 PT-IP Assessment and Plan Start: 11/20/20 14:14 Freq: NEEDED Status: Active Protocol: Document 11/21/20 12:28 CLB (Rec: 11/21/20 13:44 CLB [id number]) PT Summary Assessment and Plan Potential Rehabilitation Potential Fair Status of Condition at Evaluation Evolving Summary Impairments Pain,ROM,Strength,Balance, Coordination,Sensation,Tone, Cognition,Bed Mobility, Transfers,Gait,Activity Tolerance Progress Towards Goals Progressing Toward Goals Assessment Summary Pt able to climb stairs CGA with friends assistance. Pt ambulated ~100ft w/FWW/CGA then SBA with small step thru gait pattern. Pt requires SBA for all bed mobilty and sit<> stand. Pt has good pain control during mobility. Pt plans to d/c home with her friend Caitlyn assisting her. Goals Bed Mobility Goal Independent Transfer Goal Independent,Front Wheeled Walker Gait Goal Independent,Front Wheel Walker Gait Distance 150 Other Goals up/down 3 steps SPC/DOCUMENT CONTROL MANAGER min A Days to Meet Goals 5 Frequency of Treatment Frequency Of Treatment Twice a Day Treatment Plan Physical Therapy Treatment Plan Bed Mobility Training,Transfer Training,Gait Training, Therapeutic Exercise,Balance Retraining,Post Op Education, Discharge Planning,Hot or Cold Pack,Neuromuscular Re-ed, Coordination Retraining,Manual Therapy Recommendations To Nursing Amount of Assist Needed 1 Person Assist Discharge Recommendations PT Discharge Recommendations Home with Assistance, Outpatient PT Transportation Needs at Discharge Private Vehicle
--- NOTE | 2020-11-21 13:10 | PC.NURSE ---
Patient is A/O x 4, up to chair for breakfast with SBA and FWW. Patient denies pain except with movement. PRN Oxy administered in preparation for PT. Dsg is CDI, wedge in place, CMS intact. Pulses equal bilaterally. SCD's removed for activity and off while patient in chair. Patient denies SOB, increased WOB with activity. VS WNL, patient on room air, lungs CTA. BT active x 4, last BM yesterday, abdomen is soft and non tender. Patient is voiding in restroom. Saline locked. Tolerating PO intake. Denies n/v. Call light in reach.
[2020-11-21 13:18] VITALS: BP 128/67; PULSE 70
== END 2020-11-21 14:00 | disposition home or self-care (01) | DRG 468 ==
PROVIDERS: Admitting Provider Orthopaedic Surgery Adult Reconstructive Orthopaedic Surgery; PCP Internal Medicine; Referring Provider Orthopaedic Surgery Adult Reconstructive Orthopaedic Surgery; Visit Provider Orthopaedic Surgery Adult Reconstructive Orthopaedic Surgery
PROC: 0SRE00A Replacement of Left Hip Joint, Acetabular Surface with Polyethylene Synthetic Substitute, Uncemented, Open Approach (ICD-10-PCS; principal; 2020-11-20 07:45)
DX: T84.091A Other mechanical complication of internal left hip prosthesis, initial encounter (principal); T84.031A Mechanical loosening of internal left hip prosthetic joint, initial encounter; I10 Essential (primary) hypertension; M89.58 Osteolysis, other site; F17.210 Nicotine dependence, cigarettes, uncomplicated
CPT/HCPCS: 36415; 72170; 85014; 85018; 85025; 97110; 97116; 97162; 97530; C1776; J0690; J1100; J1885; J2250; J2270; J2274; J2405; J2704; J3010

== ENCOUNTER → 2021-08-08 09:35 | Outpatient (CLI) | payer OTHER, SELFPAY ==
[2020-11-20 13:05] VITALS: BMI 26.4
--- NOTE | 2021-08-08 09:36 | DI.RAD.S_ITS ---
PROCEDURE: XR HAND LT MIN 3V INDICATIONS: fall onto hand TECHNIQUE: 3 views of the hand(s) acquired. COMPARISON: [facility], CR, XR HAND RT MIN 3V, 11/29/2018, 9:56. FINDINGS: Bones: No fractures or dislocations. Carpal bones are normally aligned. No suspicious bony lesions. Soft tissues: No suspicious soft tissue calcifications. IMPRESSION: No evidence acute bony abnormality of the left hand. If clinical suspicion and/or symptoms persist, further assessment with repeat plain films, or advanced imaging (e.g., CT, MRI, or bone scan) may be helpful for further assessment. Dictated by: Boyd Farias M.D. on 08/08/2021 at 9:56 Approved by: Boyd Farias M.D. on 08/08/2021 at 9:58
== END ==
PROVIDERS: PCP Internal Medicine; Referring Provider Physician Assistant; Visit Provider Physician Assistant
DX: M25.449 Effusion, unspecified hand (principal); M79.642 Pain in left hand
CPT/HCPCS: 73130

== ENCOUNTER → 2021-09-16 14:19 | Outpatient (CLI) | payer OTHER, SELFPAY ==
[2020-11-20 13:05] VITALS: BMI 26.4
--- NOTE | 2021-09-16 14:20 | DI.MG.S_ITS ---
BILATERAL DIGITAL SCREENING MAMMOGRAM 3D/2D WITH CAD: 09/16/2021 CLINICAL: Routine screening. No prior exams were available for comparison. There are scattered fibroglandular elements in both breasts. Current study was also evaluated with a Computer Aided Detection (CAD) system. There are linear fine calcifications in the right breast at 11 o'clock middle depth. No other significant masses, calcifications, or other findings are seen in either breast. IMPRESSION: INCOMPLETE: NEEDS ADDITIONAL IMAGING EVALUATION The linear fine calcifications in the right breast are indeterminate. Mediolateral, spot magnification, and additional views are recommended. This exam was interpreted at Station ID: [id number]. NOTE: For mammograms, a report in lay terms will be sent to the patient. Approximately 15% of breast malignancies will not be visualized mammographically. In the management of a palpable breast mass, a negative mammogram must not discourage biopsy of a clinically suspicious lesion. Electronically Signed By: Jimenez jackson/keisha:09/16/2021 15:02:25 letter sent: Additional Imaging Needed ACR BI-RADS Category 0: Incomplete [id number]
== END ==
PROVIDERS: PCP Internal Medicine; Referring Provider Internal Medicine; Visit Provider Internal Medicine
DX: Z12.31 Encounter for screening mammogram for malignant neoplasm of breast (principal)
CPT/HCPCS: 77063; 77067

== ENCOUNTER → 2021-09-16 14:50 | Outpatient (CLI) | payer OTHER, SELFPAY ==
[2020-11-20 13:05] VITALS: BMI 26.4
== END ==
PROVIDERS: PCP Internal Medicine; Referring Provider Internal Medicine; Visit Provider Internal Medicine
DX: Z78.0 Asymptomatic menopausal state (principal); Z87.891 Personal history of nicotine dependence
CPT/HCPCS: 77080; 77081

== ENCOUNTER → 2021-09-24 11:16 | Outpatient (CLI) | payer OTHER, SELFPAY ==
[2020-11-20 13:05] VITALS: BMI 26.4
--- NOTE | 2021-09-24 11:18 | DI.MG.S_ITS ---
UNILATERAL RIGHT DIGITAL DIAGNOSTIC MAMMOGRAM 3D/2D WITH ADDITIONAL VIEWS: 09/24/2021 CLINICAL: Additional evaluation requested from prior study. Comparison is made to exam dated: 09/16/2021 mammogram - [facility]. There are scattered fibroglandular elements in right breast. There is a 1.8 cm area of loosely grouped punctate calcifications and one coarse calcification in the right breast at 11 o'clock posterior depth. These are seen in additional views. No other significant masses or calcifications are seen in the breast. IMPRESSION: PROBABLY BENIGN The 1.8 cm grouped punctate calcifications in the right breast are probably benign. A follow-up right mammogram in 6 months is recommended to demonstrate stability. This exam was interpreted at Station ID: [id number]. NOTE: For mammograms, a report in lay terms will be sent to the patient. Approximately 15% of breast malignancies will not be visualized mammographically. In the management of a palpable breast mass, a negative mammogram must not discourage biopsy of a clinically suspicious lesion. Electronically Signed By: Edwin Naqvi M.D. ar/:09/24/2021 12:03:26 letter sent: Followup Recommended ACR BI-RADS Category 3: Probably benign [id number]
== END ==
PROVIDERS: PCP Internal Medicine; Referring Provider Internal Medicine; Visit Provider Internal Medicine
DX: R92.8 Other abnormal and inconclusive findings on diagnostic imaging of breast (principal); R92.1 Mammographic calcification found on diagnostic imaging of breast
CPT/HCPCS: 77065; G0279

== ENCOUNTER 2021-12-20 09:35 | Emergency (ER) | payer OTHER, SELFPAY ==
[2020-11-20 13:05] VITALS: BMI 26.4
[2021-12-20 09:47] VITALS: BP 139/70; PULSE 75; RESP 18; TEMP 36.6; O2SAT 100; BMI 25.0
--- NOTE | 2021-12-20 10:28 | DI.RAD.S_ITS ---
PROCEDURE: XR FOOT LT MIN 3V INDICATIONS: Ulcer TECHNIQUE: 3 views of the foot were acquired. COMPARISON: [facility], , FOOT 3V LEFT, 10/02/2016, 9:13. FINDINGS: Bones: The 2nd toe has been amputated. Alignment abnormalities and generalized degenerative changes can be seen. No suspicious lytic lesions or periosteal reaction can be seen. No displaced fractures are seen. Soft tissues: On the lateral view, soft tissue gas can be seen involving the distal foot, with generalized soft tissue swelling. IMPRESSION: Soft tissue ulcer seen, without iris plain film findings of osteomyelitis. If there is strong suspicion for developing osteomyelitis, please consider a dedicated MRI without and with contrast for further evaluation (assuming that there is no contraindication to MRI). Prior 2nd toe amputation. Dictated by: Alfredo Galan M.D. on 12/20/2021 at 9:54 Approved by: Alfredo Galan M.D. on 12/20/2021 at 9:55
--- NOTE | 2021-12-20 10:35 | ED.LOWEXIN ---
HPI - Extremity Injury (Lower) General Chief Complaint: Extremity Injury, Lower Stated Complaint: Ulcer on lt foot- R/o Sepsis- sent by [facility] Time Seen by Provider: 12/20/21 10:25 Source: patient Mode of arrival: Ambulatory Limitations: no limitations History of Present Illness HPI Narrative: The patient required a left 2nd toe amputation years ago due to an injury. Following the injury an amputation she developed a chronic/recurrent ulcer to the plantar left foot. She is under constant care from Podiatry. The ulcer recently opened again. There is watery discharge. There is no purulence. She has no erythema to the foot. She has no increase in pain. She was seen at the walk-in clinic, she was sent here for additional evaluation. She is not diabetic. Related Data Home Medications Medication Instructions Recorded Confirmed amlodipine 5 mg tablet 5 mg PO DAILY 11/11/20 12/19/21 fenofibrate 150 mg capsule 145 mg PO DAILY 11/11/20 12/19/21 losartan 100 mg tablet 100 mg PO DAILY 11/11/20 12/19/21 metoprolol succinate 50 mg 50 mg PO DAILY 11/11/20 12/19/21 tablet,extended release 24 hr Previous Rx's Medication Instructions Recorded acetaminophen 325 mg tablet 500 mg PO Q4-6H #20 tab 11/21/20 aspirin 81 mg tablet,delayed 81 mg PO BID #30 tab 11/21/20 release docusate sodium 100 mg capsule 100 mg PO BID #20 cap 11/21/20 (DOK) ondansetron 4 mg disintegrating 4 mg PO Q4HR PRN #15 tab 11/21/20 tablet oxycodone 5 mg tablet 5 mg PO Q4-6H PRN #50 tab 11/21/20 doxycycline hyclate 100 mg capsule 100 mg PO BID 7 Days #14 cap 12/20/21 Allergies Allergy/AdvReac Type Severity Reaction Status Date / Time No Known Drug Allergies Allergy Verified 12/20/21 09:47 Review of Systems Constitutional Constitutional: Denies chills, Denies fever(s), Denies headache(s) and Denies weakness ENT Ears, Nose, Mouth, and Throat: Denies headache(s) Musculoskeletal Musculoskeletal: Denies tingling Integumentary/Breasts Comments: Left foot ulcer, no other skin lesions. Neurologic Neurologic: Denies headache(s), Denies tingling and Denies weakness Hematologic/Lymphatic On Anticoagulants: No Patient History Medical History Borderline diabetes Cataract (lens) fragments in eye following cataract surgery, bilateral Healthy adult History of sinusitis Hypertension Postmenopausal Surgical History History of total hip arthroplasty Social History household members: none lives independently: Yes Smoking Status: Current every day smoker alcohol intake: former substance use type: does not use Smoking Status: Current every day smoker alcohol intake frequency: 0-2 drinks per day Substance Use Type: does not use Exam Initial Vital Signs Initial Vital Signs: Vital Signs Temperature 97.9 F 12/20/21 09:47 Pulse Rate 75 12/20/21 09:47 Respiratory Rate 18 12/20/21 09:47 Blood Pressure 139/70 12/20/21 09:47 Pulse Oximetry 100 12/20/21 09:47 Const General: cooperative, healthy appearing and comfortable Neuro General: patient alert, patient awake and patient oriented x3 Other: Motor and sensory exam of left foot is normal. Extrem Other: Foot dorsalis pedis pulses normal. The patient has a well-healed amputation to the 2nd toe. She has a 1 cm ulcer in the plantar size of the foot proximal to the amputation site. There is a large callus formation around the ulcer, there is watery discharge from the base ulcer. There is no purulent discharge. There is very little erythema around the site. There is no edema or swelling throughout the foot. Course Course Course Narrative: The patient has a chronic left foot ulcer, no obvious purulence at this time. Cultures obtained. She is discharged on doxycycline. She has an appointment with her pyrometallurgical engineer in 3 days. Chronic anemia is noted, where the a follow-up with her PCM. Orders Ordered: ED Orders 12/20/21 10:10 Complete Blood Count AUTO DIFF Stat Comprehensive Metabolic Panel Stat Lactate (Lactic Acid) Stat Lipase Stat Procalcitonin Stat Wound Culture and Gram Stain Stat 12/20/21 10:28 XR foot LT min 3V Stat 12/20/21 10:33 Wound Culture and Gram Stain Stat 12/20/21 11:20 Blood Culture Stat Discontinued Medications Doxycycline Hyclate (Doxycycline Hyclate 100 Mg Tablet) 100 mg PO NOW ONE Stop: 12/20/21 11:24 Last Admin: 12/20/21 11:53 Dose: 100 mg Documented by: KJ Vital Signs Vital signs: Vital Signs - 8 hr 12/20/21 09:47 Temperature 97.9 F Pulse Rate 75 Respiratory Rate 18 Blood Pressure 139/70 Pulse Oximetry 100 MDM - Extremity Injury (Lower) Lab Data Result diagrams: 12/20/21 10:10 12/20/21 10:10 Labs: Lab Results 12/20/21 12/20/21 12/20/21 Range/Units 10:10 10:10 10:10 WBC 8.3 (4.5-11.0) X10^3/uL RBC 2.93 L (4.0-5.2) X10^6/uL Hgb 10.5 L (12.0-16.0) g/dL Hct 29.4 L (36-46) % MCV 100.6 H (80-100) fL MCH 35.8 H (26-34) PG MCHC 35.6 (30-36) % RDW 12.7 (11.6-14.8) % Plt Count 189 (150-400) X10^3/uL Neut % (Auto) 68.6 (50-75) % Lymph % (Auto) 17.3 L (25-40) % [place] % (Auto) 13.0 (3-14) % Eos % (Auto) 0.7 L (2-4) % Baso % (Auto) 0.4 (0-2) % Neut # (Auto) 5700 (3883-0448) /uL Lymph # (Auto) 1400 (9039-6485) /uL [place] # (Auto) 1100 H (0-900) /uL Eos # (Auto) 100 (0-450) /uL Baso # (Auto) 0 (0-100) /uL Sodium 134 L (137-145) mmol/L Potassium 4.4 (3.4-5.1) mmol/L Chloride 102 (98-107) mmol/L Carbon Dioxide 23 (22-32) mmol/L BUN 13 (7-17) mg/dL Creatinine 1.38 H (0.52-1.04) mg/dL Estimated GFR 38.3 L (>60) mL/min BUN/Creatinine Ratio 9.4 (6-22) Glucose 112 H (80-110) mg/dL Lactate 1.8 (0.7-2.1) mmol/L Calcium 8.9 (8.4-10.2) mg/dL Total Bilirubin 1.6 H (0.2-1.3) mg/dL AST 96 H (14-36) IU/L ALT 82 H (<35) IU/L Alkaline Phosphatase 131 H (38-126) U/L Total Protein 7.3 (6.3-8.2) g/dL Albumin 4.0 (3.5-5.0) g/dL Globulin 3.3 (1.7-4.1) g/dL Albumin/Globulin Ratio 1.2 (1.0-2.8) Lipase 145 (23-300) U/L Procalcitonin 2.04 H (<0.5) ng/mL Imaging Data Left foot x-ray: Radiologist's Impression: Launch?Image [address] [address] XRay Report Signed Patient: Kaitlyn Ashley MR#: [id number] : 1955 Acct:[id number] Age/Sex: 66 / F Date of Service: 12/20/21 Loc: ED Accession Number: [id number] ?? Procedure: XR foot LT min 3V Ordering Provider: Pete Del Rio MD PROCEDURE:? XR FOOT LT MIN 3V ? INDICATIONS:? Ulcer ? TECHNIQUE:? 3 views of the foot were acquired.? ? COMPARISON:? [facility], , FOOT 3V LEFT, 10/02/2016, 9:13. ? FINDINGS:? ? Bones:? The 2nd toe has been amputated. ? Alignment abnormalities and generalized degenerative changes can be seen. ? No suspicious lytic lesions or periosteal reaction can be seen. No displaced fractures are seen.? ? Soft tissues:? On the lateral view, soft tissue gas can be seen involving the distal foot, with generalized soft tissue swelling. ? ? IMPRESSION:? Soft tissue ulcer seen, without iris plain film findings of osteomyelitis. ? If there is strong suspicion for developing osteomyelitis, please consider a dedicated MRI without and with contrast for further evaluation (assuming that there is no contraindication to MRI).? ? Prior 2nd toe amputation.? ? Dictated by: Alfredo Galan M.D. on 12/20/2021 at 9:54? ?? Discharge Plan Departure Patient Disposition: Home Clinical Impression: Chronic ulcer of left foot, Chronic anemia Instructions: Diabetic Foot Ulcer, Anemia Activity Restrictions/Additional Instructions: Clean the wound, change the dressing twice daily. Doxycycline 2 times daily. Follow-up with your pyrometallurgical engineer in 3 days as planned. He had significant anemia, follow-up with PCM. Return here if you have significant worsening of the ulcer/foot. Prescriptions: New doxycycline hyclate 100 mg capsule 100 mg PO BID 7 Days Qty: 14 0RF No Action metoprolol succinate 50 mg Tablet Extended Release 24 Hr 50 mg PO DAILY 0RF amlodipine 5 mg Tablet 5 mg PO DAILY 0RF losartan 100 mg tablet 100 mg PO DAILY 0RF fenofibrate 150 mg Capsule 145 mg PO DAILY 0RF acetaminophen 325 mg Tablet 500 mg PO Q4-6H Qty: 20 0RF aspirin 81 mg Tablet,Delayed Release (Dr/Ec) 81 mg PO BID Qty: 30 0RF docusate sodium [DOK] 100 mg Capsule 100 mg PO BID Qty: 20 0RF ondansetron 4 mg Tablet,Disintegrating 4 mg PO Q4HR PRN (Reason: Nausea) Qty: 15 0RF oxycodone 5 mg Tablet 5 mg PO Q4-6H PRN (Reason: Pain, Moderate (4-6)) Qty: 50 0RF Rx Instructions: 1 tab po every 4-6 hours as needed for severe pain. exempt. post op pain. Referrals: Amanda Soliz MD [Primary Care Provider] -
[2021-12-20 10:46] LABS: Add Manual Diff / Slide Review NO; Basophils Absolute Auto 0 /uL (0-100); Basophils Percent Auto 0.4 % (0-2); Eosinophils Absolute Auto 100 /uL (0-450); Eosinophils Percent Auto 0.7 % (2-4); Hematocrit 29.4 % (36-46); Hemoglobin 10.5 g/dL (12.0-16.0); Lymphocytes Absolute Auto 1400 /uL (1100-4500); Lymphocytes Percent Auto 17.3 % (25-40); Mean Corpuscular HGB Conc 35.6 % (30-36); Mean Corpuscular Hemoglobin 35.8 PG (26-34); Mean Corpuscular Volume 100.6 fL (80-100); Monocytes Absolute Auto 1100 /uL (0-900); Neutrophils Absolute Auto 5700 /uL (1500-7000); Neutrophils Percent Auto 68.6 % (50-75); Platelet Count 189 X10^3/uL (150-400); Red Blood Cell Count 2.93 X10^6/uL (4.0-5.2); Red Cell Distribution Width 12.7 % (11.6-14.8); White Blood Cell Count 8.3 X10^3/uL (4.5-11.0)
[2021-12-20 11:10] LABS: Lactate (Lactic Acid) 1.8 mmol/L (0.7-2.1)
[2021-12-20 11:11] LABS: Alanine Aminotransferase 82 IU/L (<35); Albumin Globulin Ratio 1.2 (1.0-2.8); Alkaline Phosphatase 131 U/L (38-126); Aspartate Aminotransferase 96 IU/L (14-36); BUN Creatinine Ratio 9.4 (6-22); Bilirubin Total 1.6 mg/dL (0.2-1.3); Blood Urea Nitrogen 13 mg/dL (7-17); Calcium 8.9 mg/dL (8.4-10.2); Carbon Dioxide 23 mmol/L (22-32); Chloride 102 mmol/L (98-107); Estimated Glomerular Filt Rate 38.3 mL/min (>60); Globulin 3.3 g/dL (1.7-4.1); Glucose 112 mg/dL (80-110); HEMOLYSIS < 15 (0-50); Lipase 145 U/L (23-300); Potassium 4.4 mmol/L (3.4-5.1); Sodium 134 mmol/L (137-145); Total Protein 7.3 g/dL (6.3-8.2)
[2021-12-20 11:27] LABS: Procalcitonin 2.04 ng/mL (<0.5)
[2021-12-20] MEDS: DOXYCYCLINE HYCLATE 100 MG TABLET PO (11:53)
[2021-12-20 12:30] VITALS: BP 136/81; PULSE 62; O2SAT 100
== END 2021-12-20 13:04 | disposition home or self-care (01) ==
PROVIDERS: Emergency Provider Emergency Medicine; PCP Internal Medicine
DX: L97.429 Non-pressure chronic ulcer of left heel and midfoot with unspecified severity (principal); D53.9 Nutritional anemia, unspecified; F17.200 Nicotine dependence, unspecified, uncomplicated; Z89.422 Acquired absence of other left toe(s)
CPT/HCPCS: 36415; 73630; 80053; 83605; 83690; 84145; 85025; 87040; 87070; 87075; 87077; 87186; 87205; 99283; 99284

== ENCOUNTER 2022-02-06 05:23 | Emergency (ER) | payer OTHER, SELFPAY ==
[2020-11-20 13:05] VITALS: BMI 26.4
[2022-02-06 05:27] VITALS: BP 158/74; PULSE 83; RESP 20; TEMP 36.9; O2SAT 95; BMI 24.1
[2022-02-06 05:34] VITALS: PULSE 83; RESP 17; O2SAT 96
--- NOTE | 2022-02-06 05:45 | DI.RAD.S_ITS ---
PROCEDURE: XR CHEST 1V INDICATIONS: near syncope, shaking TECHNIQUE: One view of the chest was acquired. COMPARISON: [facility], , CHEST 1 VIEW, 05/30/2011, 0:35. FINDINGS: Surgical changes and devices: None. Lungs and pleura: Lungs are clear. No pleural effusions or pneumothorax. Mediastinum: Mediastinal contours appear normal. Heart size is normal. Bones and chest wall: No suspicious bony lesions. Overlying soft tissues appear unremarkable. IMPRESSION: No acute pulmonary process. Dictated by: Judy Richmond M.D. on 02/06/2022 at 8:20 Approved by: Judy Richmond M.D. on 02/06/2022 at 8:32
--- NOTE | 2022-02-06 05:48 | ED_ITS ---
HPI - Weakness <Laura Ho, DO - Last Filed: 02/11/22 08:45> General Chief complaint: Weakness Stated complaint: shaking, weak, low/high BP Time Seen by Provider: 02/06/22 05:30 Source: patient Mode of arrival: Ambulatory Limitations: no limitations History of Present Illness HPI Narrative: This is a pleasant 66-year-old female who presents with complaint of a several weeks to a month of feeling generally unwell. Generalized weakness, occasionally shaking, patient states no headaches, no fevers or chills. No chest pain or pressure, no shortness of breath. She has had a cough which has been productive at times. Patient has had some nausea and dry heaves intermittently. She denies any abdominal, back flank pain. She was having frequent diarrhea but that has since stopped in the last several weeks. No black or bloody stools at that time. She denies dysuria, urgency frequency. She denies any new rashes or skin changes. Patient has a history of hypertension, dyslipidemia and was told that she was anemic on her last office visit with her physician and that her liver enzymes were off. Patient states she stopped taking Tylenol because of this she was taking up to 3 tablets twice daily. Patient has had multiple orthopedic surgeries on her hip but no other surgeries. She denies anticoagulation but does have aspirin on her prior EMR. No known drug allergies. She does smoke daily, occasional alcohol, no illicit. Amanda Soliz is her primary care physician. Related Data Home Medications Medication Instructions Recorded Confirmed amlodipine 5 mg tablet 5 mg PO DAILY 11/11/20 12/19/21 fenofibrate 150 mg capsule 145 mg PO DAILY 11/11/20 12/19/21 losartan 100 mg tablet 100 mg PO DAILY 11/11/20 12/19/21 metoprolol succinate 50 mg 50 mg PO DAILY 11/11/20 12/19/21 tablet,extended release 24 hr Previous Rx's Medication Instructions Recorded acetaminophen 325 mg tablet 500 mg PO Q4-6H #20 tab 11/21/20 aspirin 81 mg tablet,delayed 81 mg PO BID #30 tab 11/21/20 release docusate sodium 100 mg capsule 100 mg PO BID #20 cap 11/21/20 (DOK) ondansetron 4 mg disintegrating 4 mg PO Q4HR PRN #15 tab 11/21/20 tablet oxycodone 5 mg tablet 5 mg PO Q4-6H PRN #50 tab 11/21/20 Allergies Allergy/AdvReac Type Severity Reaction Status Date / Time No Known Drug Allergies Allergy Verified 02/06/22 05:42 Review of Systems <Laura Ho DO - Last Filed: 02/11/22 08:45> Review of Systems ROS Unobtainable: All systems reviewed & are unremarkable except as noted in HPI and below Patient History <Laura Ho DO - Last Filed: 02/11/22 08:45> Medical History Borderline diabetes Cataract (lens) fragments in eye following cataract surgery, bilateral Healthy adult History of sinusitis Hypertension Postmenopausal Surgical History History of total hip arthroplasty Social History household members: none lives independently: Yes Smoking Status: Current every day smoker alcohol intake: former substance use type: does not use Smoking Status: Current every day smoker alcohol intake frequency: 0-2 drinks per day Substance Use Type: does not use Exam <Laura Ho DO - Last Filed: 02/11/22 08:45> Narrative Exam Narrative: GEN: well nourished, well appearing female, alert and oriented x 3, patient appears to be in mild distress. HEENT: Atraumatic, pupils are equal round reactive to light, extraocular movements are intact, nares are clear, moist mucous membranes. HEART: Regular rate and rhythm without murmur, clicks, rubs. LUNGS:Lungs clear to auscultation, no wheezes, rales, crackles, chest moves symmetrically ABD:bowel sounds normal, soft, non-tender, no guarding, rebound, rigidity, no masses noted, no hepatosplenomegaly :No CVA tenderness MSCL: Non-tender, no muscle atrophy, muscles strength 5/5 upper and lower extremities, full range of motion, normal gait NEURO:CN 2-12 intact, sensation normal, no tremor. SKIN: No rash, erythema or petechiae or ecchymosis. Initial Vital Signs Initial Vital Signs: Vital Signs Temperature 98.4 F 02/06/22 05:27 Pulse Rate 83 02/06/22 05:27 Respiratory Rate 20 02/06/22 05:27 Blood Pressure 158/74 H 02/06/22 05:27 Pulse Oximetry 95 02/06/22 05:27 <Alvaro Prieto DO - Last Filed: 02/06/22 08:24> Initial Vital Signs Initial Vital Signs: Vital Signs Temperature 98.4 F 02/06/22 05:27 Pulse Rate 83 02/06/22 05:27 Respiratory Rate 20 02/06/22 05:27 Blood Pressure 158/74 H 02/06/22 05:27 Pulse Oximetry 95 02/06/22 05:27 Course <Laura Amaya Tonymiguel a DO - Last Filed: 02/11/22 08:45> Orders Ordered: ED Orders 02/06/22 05:36 COVID19 -Nasal RAPID/Pre-Proc Stat 02/06/22 05:44 Lactate (Lactic Acid) Stat 02/06/22 05:45 XR chest 1V Stat EKG-12 Lead Stat 02/06/22 06:10 Blood Culture Stat 02/06/22 06:55 Complete Blood Count AUTO DIFF Stat Comprehensive Metabolic Panel Stat Lipase Stat NT-proBNP (BNP-Adult 18+) Stat Partial Thromboplastin Time Stat Procalcitonin Stat Prothrombin Time INR Stat Troponin & CK Cardiac Panel Stat Vital Signs Vital signs: Vital Signs - 8 hr 02/06/22 05:27 02/06/22 05:34 02/06/22 06:00 Temperature 98.4 F Pulse Rate 83 83 78 Respiratory Rate 20 17 Blood Pressure 158/74 H 133/68 Pulse Oximetry 95 96 02/06/22 06:30 02/06/22 06:31 Temperature Pulse Rate 81 80 Respiratory Rate 22 14 Blood Pressure Pulse Oximetry 99 100 <Alvaro Prieto, DO - Last Filed: 02/06/22 08:24> Orders Ordered: ED Orders 02/06/22 05:36 COVID19 -Nasal RAPID/Pre-Proc Stat 02/06/22 05:44 Lactate (Lactic Acid) Stat 02/06/22 05:45 XR chest 1V Stat EKG-12 Lead Stat 02/06/22 06:10 Blood Culture Stat 02/06/22 06:55 Complete Blood Count AUTO DIFF Stat Comprehensive Metabolic Panel Stat Lipase Stat NT-proBNP (BNP-Adult 18+) Stat Partial Thromboplastin Time Stat Procalcitonin Stat Prothrombin Time INR Stat Troponin & CK Cardiac Panel Stat Vital Signs Vital signs: Vital Signs - 8 hr 02/06/22 05:27 02/06/22 05:34 02/06/22 06:00 Temperature 98.4 F Pulse Rate 83 83 78 Respiratory Rate 20 17 Blood Pressure 158/74 H 133/68 Pulse Oximetry 95 96 02/06/22 06:30 02/06/22 06:31 Temperature Pulse Rate 81 80 Respiratory Rate 22 14 Blood Pressure Pulse Oximetry 99 100 MDM - Weakness <Laura Ho, DO - Last Filed: 02/11/22 08:45> Lab Data Result diagrams: 02/06/22 06:55 02/06/22 06:55 Labs: Lab Results 02/06/22 02/06/22 02/06/22 Range/Units 05:36 06:55 06:55 WBC (4.5-11.0) X10^3/uL RBC (4.0-5.2) X10^6/uL Hgb (12.0-16.0) g/dL Hct (36-46) % MCV (80-100) fL MCH (26-34) PG MCHC (30-36) % RDW (11.6-14.8) % Plt Count (150-400) X10^3/uL Neut % (Auto) (50-75) % Lymph % (Auto) (25-40) % Beadle % (Auto) (3-14) % Eos % (Auto) (2-4) % Baso % (Auto) (0-2) % Neut # (Auto) (4802-4633) /uL Lymph # (Auto) (7206-2675) /uL Beadle # (Auto) (0-900) /uL Eos # (Auto) (0-450) /uL Baso # (Auto) (0-100) /uL PT 14.3 H (10.1-12.7) SECONDS INR 1.3 (0.9-1.3) APTT 33 (26.4-36.2) SECONDS Sodium (137-145) mmol/L Potassium (3.4-5.1) mmol/L Chloride (98-107) mmol/L Carbon Dioxide (22-32) mmol/L BUN (7-17) mg/dL Creatinine (0.52-1.04) mg/dL Estimated GFR (>60) mL/min BUN/Creatinine Ratio (6-22) Glucose (80-110) mg/dL Calcium (8.4-10.2) mg/dL Total Bilirubin (0.2-1.3) mg/dL AST (14-36) IU/L ALT (<35) IU/L Alkaline Phosphatase (38-126) U/L Total Creatine Kinase (30-135) U/L CK-MB (CK-2) (<2.37) ng/mL CK-MB (CK-2) Rel Index (1.5-5.0) % Troponin I (0.01-0.034) ng/mL NT-Pro-B Natriuret Pep 408 H (<125) pg/mL Total Protein (6.3-8.2) g/dL Albumin (3.5-5.0) g/dL Globulin (1.7-4.1) g/dL Albumin/Globulin Ratio (1.0-2.8) Lipase (23-300) U/L Procalcitonin 0.95 H (<0.5) ng/mL SARS-CoV-2 (PCR) Negative (Negative) 02/06/22 02/06/22 Range/Units 06:55 06:55 WBC 6.1 (4.5-11.0) X10^3/uL RBC 2.80 L (4.0-5.2) X10^6/uL Hgb 10.0 L (12.0-16.0) g/dL Hct 28.9 L (36-46) % MCV 103.2 H (80-100) fL MCH 35.6 H (26-34) PG MCHC 34.4 (30-36) % RDW 14.2 (11.6-14.8) % Plt Count 222 (150-400) X10^3/uL Neut % (Auto) 70.3 (50-75) % Lymph % (Auto) 20.1 L (25-40) % Beadle % (Auto) 8.7 (3-14) % Eos % (Auto) 0.3 L (2-4) % Baso % (Auto) 0.6 (0-2) % Neut # (Auto) 4300 (7409-0910) /uL Lymph # (Auto) 1200 (1921-4552) /uL Beadle # (Auto) 500 (0-900) /uL Eos # (Auto) 0 (0-450) /uL Baso # (Auto) 0 (0-100) /uL PT (10.1-12.7) SECONDS INR (0.9-1.3) APTT (26.4-36.2) SECONDS Sodium 140 (137-145) mmol/L Potassium 4.5 (3.4-5.1) mmol/L Chloride 105 (98-107) mmol/L Carbon Dioxide 29 (22-32) mmol/L BUN 19 H (7-17) mg/dL Creatinine 1.12 H (0.52-1.04) mg/dL Estimated GFR 54 L (>60) mL/min BUN/Creatinine Ratio 17.0 (6-22) Glucose 121 H (80-110) mg/dL Calcium 7.6 L (8.4-10.2) mg/dL Total Bilirubin 1.3 (0.2-1.3) mg/dL AST 168 H (14-36) IU/L ALT 140 H (<35) IU/L Alkaline Phosphatase 227 H (38-126) U/L Total Creatine Kinase 110 (30-135) U/L CK-MB (CK-2) 1.45 (<2.37) ng/mL CK-MB (CK-2) Rel Index 1.3 L (1.5-5.0) % Troponin I < 0.012 (0.01-0.034) ng/mL NT-Pro-B Natriuret Pep (<125) pg/mL Total Protein 6.6 (6.3-8.2) g/dL Albumin 3.5 (3.5-5.0) g/dL Globulin 3.1 (1.7-4.1) g/dL Albumin/Globulin Ratio 1.1 (1.0-2.8) Lipase 111 (23-300) U/L Procalcitonin (<0.5) ng/mL SARS-CoV-2 (PCR) (Negative) ECG Data Attestation: I personally reviewed and interpreted this ECG as follows: Interpretation: Sinus rhythm rate of 75 MD 128 QRS 82 QTC of 448. No acute ST elevation depression noted. Patient has prior from 05/30/2011 to wave is inverted on lead 3 but no other acute changes noted. MDM Narrative Medical decision making narrative: Dr. Ho, patient has ongoing symptoms but had possible syncopal episode vs. fall yesterday but ambulates safely into the department. Patient workup in pending and signed out to Dr. Prieto. Dr prieto: Received turnover. Review patient's labs. He patient's history and physical exam and presentation. Introduced myself to the patient. Patient's labs today does show any anemia however not had a level where I would recommend a blood transfusion. I cannot say specifically that the anemia is what is causing her presenting symptoms today. She also has elevation in her liver function test but this once again is nonspecific. She is not having any abdominal tenderness or fevers. She has no leukocytosis. Does have an elevated procalcitonin but no other signs of any infection. Her presenting symptoms have been going on for weeks/months and did not specifically change last evening per her report myself. She has seen her primary provider. Had a long discussion with her regarding her symptoms. No further workup needed the emergency department and she does require further follow-up with her own primary provider to evaluate for her elevation in her LFTs and also her anemia. She expressed understanding and agreement this plan. <Alvaro Prieto, - Last Filed: 02/06/22 08:24> Lab Data Attestation: I reviewed the patient's lab results. Labs: Lab Results 02/06/22 02/06/22 02/06/22 Range/Units 05:36 06:55 06:55 WBC (4.5-11.0) X10^3/uL RBC (4.0-5.2) X10^6/uL Hgb (12.0-16.0) g/dL Hct (36-46) % MCV (80-100) fL MCH (26-34) PG MCHC (30-36) % RDW (11.6-14.8) % Plt Count (150-400) X10^3/uL Neut % (Auto) (50-75) % Lymph % (Auto) (25-40) % Beadle % (Auto) (3-14) % Eos % (Auto) (2-4) % Baso % (Auto) (0-2) % Neut # (Auto) (2026-3570) /uL Lymph # (Auto) (4043-4640) /uL Beadle # (Auto) (0-900) /uL Eos # (Auto) (0-450) /uL Baso # (Auto) (0-100) /uL PT 14.3 H (10.1-12.7) SECONDS INR 1.3 (0.9-1.3) APTT 33 (26.4-36.2) SECONDS Sodium (137-145) mmol/L Potassium (3.4-5.1) mmol/L Chloride (98-107) mmol/L Carbon Dioxide (22-32) mmol/L BUN (7-17) mg/dL Creatinine (0.52-1.04) mg/dL Estimated GFR (>60) mL/min BUN/Creatinine Ratio (6-22) Glucose (80-110) mg/dL Calcium (8.4-10.2) mg/dL Total Bilirubin (0.2-1.3) mg/dL AST (14-36) IU/L ALT (<35) IU/L Alkaline Phosphatase (38-126) U/L Total Creatine Kinase (30-135) U/L CK-MB (CK-2) (<2.37) ng/mL CK-MB (CK-2) Rel Index (1.5-5.0) % Troponin I (0.01-0.034) ng/mL NT-Pro-B Natriuret Pep 408 H (<125) pg/mL Total Protein (6.3-8.2) g/dL Albumin (3.5-5.0) g/dL Globulin (1.7-4.1) g/dL Albumin/Globulin Ratio (1.0-2.8) Lipase (23-300) U/L Procalcitonin 0.95 H (<0.5) ng/mL SARS-CoV-2 (PCR) Negative (Negative) 02/06/22 02/06/22 Range/Units 06:55 06:55 WBC 6.1 (4.5-11.0) X10^3/uL RBC 2.80 L (4.0-5.2) X10^6/uL Hgb 10.0 L (12.0-16.0) g/dL Hct 28.9 L (36-46) % MCV 103.2 H (80-100) fL MCH 35.6 H (26-34) PG MCHC 34.4 (30-36) % RDW 14.2 (11.6-14.8) % Plt Count 222 (150-400) X10^3/uL Neut % (Auto) 70.3 (50-75) % Lymph % (Auto) 20.1 L (25-40) % Beadle % (Auto) 8.7 (3-14) % Eos % (Auto) 0.3 L (2-4) % Baso % (Auto) 0.6 (0-2) % Neut # (Auto) 4300 (2881-0749) /uL Lymph # (Auto) 1200 (7555-9689) /uL Beadle # (Auto) 500 (0-900) /uL Eos # (Auto) 0 (0-450) /uL Baso # (Auto) 0 (0-100) /uL PT (10.1-12.7) SECONDS INR (0.9-1.3) APTT (26.4-36.2) SECONDS Sodium 140 (137-145) mmol/L Potassium 4.5 (3.4-5.1) mmol/L Chloride 105 (98-107) mmol/L Carbon Dioxide 29 (22-32) mmol/L BUN 19 H (7-17) mg/dL Creatinine 1.12 H (0.52-1.04) mg/dL Estimated GFR 54 L (>60) mL/min BUN/Creatinine Ratio 17.0 (6-22) Glucose 121 H (80-110) mg/dL Calcium 7.6 L (8.4-10.2) mg/dL Total Bilirubin 1.3 (0.2-1.3) mg/dL AST 168 H (14-36) IU/L ALT 140 H (<35) IU/L Alkaline Phosphatase 227 H (38-126) U/L Total Creatine Kinase 110 (30-135) U/L CK-MB (CK-2) 1.45 (<2.37) ng/mL CK-MB (CK-2) Rel Index 1.3 L (1.5-5.0) % Troponin I < 0.012 (0.01-0.034) ng/mL NT-Pro-B Natriuret Pep (<125) pg/mL Total Protein 6.6 (6.3-8.2) g/dL Albumin 3.5 (3.5-5.0) g/dL Globulin 3.1 (1.7-4.1) g/dL Albumin/Globulin Ratio 1.1 (1.0-2.8) Lipase 111 (23-300) U/L Procalcitonin (<0.5) ng/mL SARS-CoV-2 (PCR) (Negative) MDM Narrative Medical decision making narrative: Dr prieto: Received turnover. Review patient's labs. He patient's history and physical exam and presentation. Introduced myself to the patient. Patient's labs today does show any anemia however not had a level where I would recommend a blood transfusion. I cannot say specifically that the anemia is what is causing her presenting symptoms today. She also has elevation in her liver function test but this once again is nonspecific. She is not having any abdominal tenderness or fevers. She has no leukocytosis. Does have an elevated procalcitonin but no other signs of any infection. Her presenting symptoms have been going on for weeks/months and did not specifically change last evening per her report myself. She has seen her primary provider. Had a long discussion w ith her regarding her symptoms. No further workup needed the emergency department and she does require further follow-up with her own primary provider to evaluate for her elevation in her LFTs and also her anemia. She expressed understanding and agreement this plan. Discharge Plan Departure Patient Disposition: Home Clinical Impression: Transaminitis, Anemia, Fatigue Activity Restrictions/Additional Instructions: Your anemia and transaminitis (elevation in liver function tests) do require f urther workup by your primary provider. I do recommend that you continue all of your medications as directed. Return to the emergency department for any new or worsening symptoms. Prescriptions: No Action metoprolol succinate 50 mg Tablet Extended Release 24 Hr 50 mg PO DAILY 0RF amlodipine 5 mg Tablet 5 mg PO DAILY 0RF losartan 100 mg tablet 100 mg PO DAILY 0RF fenofibrate 150 mg Capsule 145 mg PO DAILY 0RF acetaminophen 325 mg Tablet 500 mg PO Q4-6H Qty: 20 0RF aspirin 81 mg Tablet,Delayed Release (Dr/Ec) 81 mg PO BID Qty: 30 0RF docusate sodium [DOK] 100 mg Capsule 100 mg PO BID Qty: 20 0RF ondansetron 4 mg Tablet,Disintegrating 4 mg PO Q4HR PRN (Reason: Nausea) Qty: 15 0RF oxycodone 5 mg Tablet 5 mg PO Q4-6H PRN (Reason: Pain, Moderate (4-6)) Qty: 50 0RF Rx Instructions: 1 tab po every 4-6 hours as needed for severe pain. exempt. post op pain. Referrals: Amanda Soliz MD [Primary Care Provider] - Stand Alone Forms: Work Release Note
[2022-02-06 06:00] VITALS: BP 133/68; PULSE 78
[2022-02-06 06:30] VITALS: PULSE 81; RESP 22; O2SAT 99
[2022-02-06 06:30] LABS: COVID19 -Nasal RAPID Negative (Negative)
[2022-02-06 06:31] VITALS: PULSE 80; RESP 14; O2SAT 100
[2022-02-06 07:11] LABS: Add Manual Diff / Slide Review NO; Basophils Absolute Auto 0 /uL (0-100); Basophils Percent Auto 0.6 % (0-2); Eosinophils Absolute Auto 0 /uL (0-450); Eosinophils Percent Auto 0.3 % (2-4); Hematocrit 28.9 % (36-46); Lymphocytes Absolute Auto 1200 /uL (1100-4500); Lymphocytes Percent Auto 20.1 % (25-40); Mean Corpuscular HGB Conc 34.4 % (30-36); Mean Corpuscular Hemoglobin 35.6 PG (26-34); Mean Corpuscular Volume 103.2 fL (80-100); Monocytes Absolute Auto 500 /uL (0-900); Monocytes Percent Auto 8.7 % (3-14); Neutrophils Absolute Auto 4300 /uL (1500-7000); Neutrophils Percent Auto 70.3 % (50-75); Platelet Count 222 X10^3/uL (150-400); Red Cell Distribution Width 14.2 % (11.6-14.8); White Blood Cell Count 6.1 X10^3/uL (4.5-11.0)
[2022-02-06 07:13] LABS: INR 1.3 (0.9-1.3); Prothrombin Time 14.3 SECONDS (10.1-12.7)
[2022-02-06 07:16] LABS: PTT Partial Thromboplastin Tim 33 SECONDS (26.4-36.2)
[2022-02-06 07:19] LABS: Alanine Aminotransferase 140 IU/L (<35); Albumin 3.5 g/dL (3.5-5.0); Albumin Globulin Ratio 1.1 (1.0-2.8); Alkaline Phosphatase 227 U/L (38-126); Aspartate Aminotransferase 168 IU/L (14-36); Bilirubin Total 1.3 mg/dL (0.2-1.3); Blood Urea Nitrogen 19 mg/dL (7-17); Calcium 7.6 mg/dL (8.4-10.2); Carbon Dioxide 29 mmol/L (22-32); Chloride 105 mmol/L (98-107); Creatine Kinase 110 U/L (30-135); Estimated Glomerular Filt Rate 54 mL/min (>60); Globulin 3.1 g/dL (1.7-4.1); Glucose 121 mg/dL (80-110); HEMOLYSIS 28 (0-50); Potassium 4.5 mmol/L (3.4-5.1); Sodium 140 mmol/L (137-145); Total Protein 6.6 g/dL (6.3-8.2)
[2022-02-06 07:28] LABS: NT-proBNP (BNP-Adult 18+) 408 pg/mL (<125)
[2022-02-06 07:30] LABS: Troponin I < 0.012 ng/mL (0.01-0.034)
[2022-02-06 07:34] LABS: CKMB % Relative Index 1.3 % (1.5-5.0); Creatine Kinase MB 1.45 ng/mL (<2.37)
[2022-02-06 07:36] LABS: Procalcitonin 0.95 ng/mL (<0.5)
[2022-02-06 07:53] LABS: Lipase 111 U/L (23-300)
[2022-02-06 09:31] VITALS: BP 129/58; PULSE 79; RESP 20; O2SAT 100
== END 2022-02-06 09:41 | disposition home or self-care (01) ==
PROVIDERS: Emergency Medicine; Emergency Provider Emergency Medicine; PCP Internal Medicine
DX: R74.01 Elevation of levels of liver transaminase levels (principal); D64.9 Anemia, unspecified; R53.83 Other fatigue; R11.0 Nausea; R05.9 Cough, unspecified; Z20.822 Contact with and (suspected) exposure to COVID-19
CPT/HCPCS: 71045; 80053; 82550; 82553; 83690; 83880; 84145; 84484; 85025; 85610; 85730; 87040; 87635; 93005; 99283; C9803

== ENCOUNTER → 2022-04-07 09:22 | Outpatient (CLI) | payer OTHER, SELFPAY ==
[2020-11-20 13:05] VITALS: BMI 26.4
--- NOTE | 2022-04-07 | DI.MG.S_ITS ---
UNILATERAL RIGHT DIGITAL DIAGNOSTIC MAMMOGRAM 3D/2D SHORT-TERM FOLLOW-UP: 04/07/2022 CLINICAL: Short term follow up of the right breast. Comparison is made to exams dated: 09/24/2021 mammogram and 09/16/2021 mammogram - [facility]. There are scattered fibroglandular elements in right breast. There are stable benign 1.8 cm grouped punctate calcifications in the right breast at 11 o'clock middle depth. No other significant masses or calcifications are seen in the breast. IMPRESSION: BENIGN There is no mammographic evidence of malignancy. Return to annual mammogram screening schedule is recommended. Based on the Tyrer Cuzick model (a risk assessment model) the patient's lifetime risk is 8.2% and her 10 year risk is 4.1%. According to the ACR, ACS, and NCCN guidelines, an annual breast MRI exam along with mammogram is recommended if the patient's lifetime risk is 20% or greater. This exam was interpreted at Station ID: [id number]. NOTE: For mammograms, a report in lay terms will be sent to the patient. Approximately 15% of breast malignancies will not be visualized mammographically. In the management of a palpable breast mass, a negative mammogram must not discourage biopsy of a clinically suspicious lesion. Electronically Signed By: Mukul Medel acr/:04/07/2022 09:48:20 letter sent: Normal Exam ACR BI-RADS Category 2: Benign Finding(s) [id number]
== END ==
PROVIDERS: PCP Internal Medicine; Referring Provider Internal Medicine; Visit Provider Internal Medicine
DX: R92.8 Other abnormal and inconclusive findings on diagnostic imaging of breast (principal)
CPT/HCPCS: 77065; G0279

== ENCOUNTER 2023-07-06 07:15 | Inpatient (IN) | payer MEDICARE, OTHER, SELFPAY ==
[2020-11-20 13:05] VITALS: BMI 26.4
[2023-07-06] VITALS (16 sets, daily range): BP systolic 135–164; BP diastolic 64–99; PULSE 59–78; RESP 16–20; TEMP 36.1–36.8; O2SAT 91–99; BMI 24.4
--- NOTE | 2023-07-06 07:21 | ED.EXTPRO ---
HPI - Extremity Problem General Chief complaint: Extremity Injury, Lower Stated complaint: left ankle injury w gross deformity Time Seen by Provider: 07/06/23 07:19 History of Present Illness HPI Narrative: Patient brought in by ambulance from home. She is staying in . She admits to drinking alcohol last night. Does not drink every day. She slipped on some ice. [place] and heard a snap in her left ankle. Unable to bear weight since last night. 12 hours ago. NPO for 12 hours. No prior injury to this ankle. 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 No history of diabetes. Patient is not on any blood thinners. Denies hitting her head or neck or any other injuries. There is moderate edema to the left ankle with limited range of motion. She is able to feel light touch to the foot and toes. Skin intact. No tenting of the skin Related Data Home Medications Medication Instructions Recorded Confirmed amlodipine 5 mg tablet 5 mg PO DAILY 11/11/20 07/14/22 fenofibrate 150 mg capsule 145 mg PO DAILY 11/11/20 07/14/22 losartan 100 mg tablet 100 mg PO DAILY 11/11/20 07/14/22 metoprolol succinate 50 mg 50 mg PO DAILY 11/11/20 07/14/22 tablet,extended release 24 hr Previous Rx's Medication Instructions Recorded acetaminophen 325 mg tablet 500 mg (1.5385 x 325 mg) PO Q4-6H 11/21/20 #20 tabs aspirin 81 mg tablet,delayed 81 mg PO BID #30 tabs 11/21/20 release docusate sodium 100 mg capsule 100 mg PO BID #20 caps 11/21/20 (DOK) ondansetron 4 mg disintegrating 4 mg PO Q4HR PRN Nausea #15 tabs 11/21/20 tablet oxycodone 5 mg tablet 5 mg PO Q4-6H PRN Pain, Moderate 11/21/20 (4-6) #50 tabs doxycycline hyclate 100 mg capsule 100 mg PO BID #14 caps 02/20/23 Allergies Allergy/AdvReac Type Severity Reaction Status Date / Time No Known Drug Allergies Allergy Verified 07/14/22 18:43 Review of Systems Review of Systems Narrative: GENERAL: negative chills, fatigue, malaise, fever, sweats. HEENT: negative sinus pain, ear pain, sore throat RESPIRATORY: negative dyspnea, cough CARDIOVASCULAR: negative chest pain, palpitations GASTROINTESTINAL: negative nausea, vomiting, abdominal pain : negative dysuria, frequency, hematuria MUSCULOSKELETAL: Positive muscle or bony pain SKIN: negative rash, skin lesions NEUROLOGIC: negative weakness, numbness ROS Unobtainable: All systems reviewed & are unremarkable except as noted in HPI and below Patient History Medical History Borderline diabetes Cataract (lens) fragments in eye following cataract surgery, bilateral History of sinusitis Hypertension Postmenopausal Healthy adult Surgical History History of total hip arthroplasty Social History (Reviewed 07/06/23 @ :23 by Minh Soliman MD) household members: none lives independently: Yes Smoking Status: Current every day smoker alcohol intake: former substance use type: does not use Smoking Status: Current every day smoker alcohol intake frequency: 0-2 drinks per day Substance Use Type: does not use Exam Narrative Exam Narrative: GENERAL: in no distress, not toxic not dyspneic HEAD: Normocephalic. EYES: Pupils equal round ENT: Mucous membranes moist. NECK: Trachea midline. CARDIOVASCULAR: Regular rate and rhythm RESPIRATORY: Clear to auscultation. Breath sounds equal bilaterally. No wheezes, rales, or rhonchi. GASTROINTESTINAL: Abdomen soft, non-tender EXTREMITIES: Examination left lower extremity nontender knee and hip. There is moderate/severe edema to the left ankle. Foot is pink. Palpable pedal pulse. Able to wiggle toes. Light touch intact to foot and toes. There is no tenting of the skin at the ankle or foot. Limited range of motion of the ankle due to pain. The calf itself is soft. No signs of compartment syndrome. No pain out of proportion to exam. No induration or tightening of the calf. No palpable cords. BACK: No flank tenderness. NEURO: AOx4. Clear speech no facial droop SKIN: Warm and dry PSYCH: Not anxious, is cooperative Initial Vital Signs Initial Vital Signs: Vital Signs Pulse Rate 63 07/06/23 07:17 Pulse Oximetry 98 07/06/23 07:17 Course Orders Ordered: ED Orders 07/06/23 07:50 CBC Auto Diff [Complete Blood Count AUTO DIFF] Stat CMP [Comprehensive Metabolic Panel] Stat ETOH [Ethanol (ETOH)] Stat Acetaminophen (Acetaminophen 325 Mg Tablet) 650 mg PO Q6H PRN PRN Reason: Fever/Mild Pain (1-3) Hydromorphone HCl (Hydromorphone 0.5 Mg Inj) 0.5 mg IV Q4H PRN PRN Reason: Pain, Moderate (4-6) Sodium Chloride (Normal Saline 0.9%) 1,000 mls @ 125 mls/hr IV CONT REBEKA Lactated Ringer's (Lactated Ringers) 1,000 mls @ 42 mls/hr IV CONT REBEKA Ibuprofen (Ibuprofen 600 Mg Tablet) 600 mg PO Q6HR PRN PRN Reason: Fever/Mild Pain (1-3) Ondansetron HCl (Ondansetron 4 Mg/2 Ml Inj) 4 mg IV Q4HR PRN PRN Reason: Nausea And Vomiting Oxycodone HCl (Oxycodone Ir 5 Mg Tablet) 7.5 mg PO Q3HR PRN PRN Reason: Pain, Severe (7-10) Last Admin: 07/06/23 14:06 Dose: 7.5 mg Documented By: POLLO Sodium Chloride (Sodium Chloride 0.9% Flush) 10 ml IV PRN PRN PRN Reason: Flush Sodium Chloride (Sodium Chloride 0.9% Flush) 10 ml IV BID REBEKA Discontinued Medications Sodium Chloride (Normal Saline 0.9%) 1,000 mls @ 125 mls/hr IV CONT REBEKA Last Admin: 07/06/23 12:45 Dose: Not Given Documented By: POLLO Influenza Virus Vaccine (Influenza Hd Vaccine 0.7 Ml Syringe) 0.7 ml IM .ONCE ONE Stop: 07/06/23 12:23 Last Admin: 07/06/23 12:35 Dose: 0.7 ml Documented By: JOSE MANUEL Ketorolac Tromethamine (Ketorolac 30 Mg/Ml Vial) 15 mg IV NOW ONE Stop: 07/06/23 13:52 Last Admin: 07/06/23 14:07 Dose: 15 mg Documented By: POLLO Morphine Sulfate (Morphine 2 Mg/Ml Inj) 2 mg IV Q4HR PRN PRN Reason: Pain, Moderate (4-6) Last Admin: 07/06/23 12:28 Dose: 2 mg Documented By: JOSE MANUEL Oxycodone HCl (Oxycodone Ir 10 Mg Tablet) 7.5 mg PO Q3HR PRN PRN Reason: Pain, Severe (7-10) Vital Signs Vital signs: Vital Signs - 8 hr 07/06/23 08:30 07/06/23 08:30 07/06/23 09:00 Pulse Rate 60 Blood Pressure 147/70 H 135/64 Pulse Oximetry 96 07/06/23 09:00 07/06/23 09:30 07/06/23 09:30 Pulse Rate 69 64 Blood Pressure 149/99 H Pulse Oximetry 99 98 07/06/23 10:00 07/06/23 10:00 Pulse Rate 63 Blood Pressure 144/69 H Pulse Oximetry 97 MDM - Extremity (Nontraumatic) Lab Data 07/06/23 07:50 07/06/23 07:50 Labs: Lab Results 07/06/23 Range/Units 07:50 WBC 12.2 H (4.5-11.0) X10^3/uL RBC 4.28 (4.0-5.2) X10^6/uL Hgb 14.4 (12.0-16.0) g/dL Hct 41.7 (36-46) % MCV 97.5 (80-100) fL MCH 33.7 (26-34) PG MCHC 34.6 (30-36) % RDW 13.2 (11.6-14.8) % Plt Count 433 H (150-400) X10^3/uL Neut % (Auto) 72.1 (50-75) % Lymph % (Auto) 19.3 L (25-40) % [place] % (Auto) 7.5 (3-14) % Eos % (Auto) 0.2 L (2-4) % Baso % (Auto) 0.9 (0-2) % Neut # (Auto) 8800 H (8058-2859) /uL Lymph # (Auto) 2400 (5276-1060) /uL [place] # (Auto) 900 (0-900) /uL Eos # (Auto) 0 (0-450) /uL Baso # (Auto) 100 (0-100) /uL Sodium 147 H (137-145) mmol/L Potassium 3.6 (3.4-5.1) mmol/L Chloride 110 H (98-107) mmol/L Carbon Dioxide 23 (22-32) mmol/L BUN 11 (7-17) mg/dL Creatinine 0.61 (0.52-1.04) mg/dL Estimated GFR > 60 (>60) mL/min BUN/Creatinine Ratio 18.0 (6-22) Glucose 133 H (80-110) mg/dL Calcium 9.7 (8.4-10.2) mg/dL Total Bilirubin 0.4 (0.2-1.3) mg/dL AST 44 H (14-36) IU/L ALT 36 H (<35) IU/L Alkaline Phosphatase 136 H (38-126) U/L Total Protein 8.3 H (6.3-8.2) g/dL Albumin 4.7 (3.5-5.0) g/dL Globulin 3.6 (1.7-4.1) g/dL Albumin/Globulin Ratio 1.3 (1.0-2.8) Ethyl Alcohol 295 H ( - 10) mg/dL Imaging Data Extremity x-ray #1: Radiologist's Impression: [address] [address] XRay Report Signed Patient: Kaitlyn Ashley MR#: [id number] : 1955 Acct:[id number] Age/Sex: 67 / F Date of Service: 07/06/23 Loc: ED Accession Number: [id number] Procedure: XR ankle LT min 3V Ordering Provider: Minh Soliman MD PROCEDURE: XR ANKLE LT MIN 3V INDICATIONS: pain/injury TECHNIQUE: 3 views of the ankle were acquired. COMPARISON: None. FINDINGS: Bones: Comminuted oblique spiral fracture of the distal tibia at the metadiaphysis with up to 1.6 cm posterior displacement of the distal fracture fragment as well as mild medial displacement and posterior medial angulation. Transverse fracture of the distal fibula is also seen at the metadiaphysis with similar posterior and medial displacement. The mortise joint remains intact. Soft tissues: Soft tissue edema surrounding the lower leg. IMPRESSION: Comminuted displaced fractures of the distal tibia and fibula. Approved by: Edwin Naqvi M.D. on 07/06/2023 at 8:37 MDM Narrative Medical decision making narrative: Patient brought in by ambulance from home. She is staying in . She admits to drinking alcohol last night. Does not drink every day. She slipped on some ice. [place] and heard a snap in her left ankle. Unable to bear weight since last night. 12 hours ago. NPO for 12 hours. No prior injury to this ankle. 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 No history of diabetes. Patient is not on any blood thinners. Denies hitting her head or neck or any other injuries. There is moderate edema to the left ankle with limited range of motion. She is able to feel light touch to the foot and toes. Skin intact. No tenting of the skin After history and exam x-ray left ankle IV access CBC CMP NPO alcohol MDM CC: Left ankle pain Complicating co-morbidities: Recent alcohol consumption Data collected from: Patient and EMS Medical records reviewed: No recent visit for this complaint Differential considered: Includes but not limited to ankle fracture ankle dislocation ankle sprain strain Exam documented above, pertinent findings include: Edema limited range of motion of the left ankle Lab Test results independently reviewed as above. Pertinent findings: WBC 12.12 hemoglobin 14 hematocrit 41 platelets 433 sodium 147 potassium 3.6 AST 44 ALT 36 alcohol 295 Imaging studies independently reviewed: X-ray left ankle comminuted displaced fractures of the distal tibia and fibula Consultations: 10:27 a.m.. Spoke with orthopedic, dr smyth, will admit Treatments: Pain is controlled. Patient does not want anything for pain Re-evaluations: I did review results with patient and my discussion with Orthopedics. She understands she will have surgery today. Discussion: Appropriate for admission. Surgeon will take patient to surgery today. Pain is controlled. Patient has been NPO. Diagnosis: Close lower extremity fracture Discharge Plan Departure Patient Disposition: Admitted As Inpatient Clinical Impression: Closed fracture of lower extremity Qualifiers: Encounter type: initial encounter Laterality: left Qualified Code(s): S82.92XA - Unspecified fracture of left lower leg, initial encounter for closed fracture Admit Date/Time: 07/06/23 10:26 Admit Provider: Froylan Tristan
[2023-07-06 08:01] LABS: Add Manual Diff / Slide Review NO; Basophils Absolute Auto 100 /uL (0-100); Basophils Percent Auto 0.9 % (0-2); Eosinophils Absolute Auto 0 /uL (0-450); Eosinophils Percent Auto 0.2 % (2-4); Hematocrit 41.7 % (36-46); Hemoglobin 14.4 g/dL (12.0-16.0); Lymphocytes Absolute Auto 2400 /uL (1100-4500); Lymphocytes Percent Auto 19.3 % (25-40); Mean Corpuscular HGB Conc 34.6 % (30-36); Mean Corpuscular Hemoglobin 33.7 PG (26-34); Mean Corpuscular Volume 97.5 fL (80-100); Monocytes Absolute Auto 900 /uL (0-900); Monocytes Percent Auto 7.5 % (3-14); Neutrophils Absolute Auto 8800 /uL (1500-7000); Neutrophils Percent Auto 72.1 % (50-75); Platelet Count 433 X10^3/uL (150-400); Red Blood Cell Count 4.28 X10^6/uL (4.0-5.2); Red Cell Distribution Width 13.2 % (11.6-14.8); White Blood Cell Count 12.2 X10^3/uL (4.5-11.0)
[2023-07-06 08:19] LABS: Alanine Aminotransferase 36 IU/L (<35); Albumin 4.7 g/dL (3.5-5.0); Albumin Globulin Ratio 1.3 (1.0-2.8); Alkaline Phosphatase 136 U/L (38-126); Aspartate Aminotransferase 44 IU/L (14-36); Bilirubin Total 0.4 mg/dL (0.2-1.3); Blood Urea Nitrogen 11 mg/dL (7-17); Calcium 9.7 mg/dL (8.4-10.2); Carbon Dioxide 23 mmol/L (22-32); Chloride 110 mmol/L (98-107); Estimated Glomerular Filt Rate > 60 mL/min (>60); Globulin 3.6 g/dL (1.7-4.1); Glucose 133 mg/dL (80-110); HEMOLYSIS 15 (0-50); Potassium 3.6 mmol/L (3.4-5.1); Sodium 147 mmol/L (137-145); Total Protein 8.3 g/dL (6.3-8.2)
[2023-07-06 08:20] LABS: Ethanol (ETOH) 295 mg/dL
--- NOTE | 2023-07-06 12:06 | PC.NURSE ---
Dr Tristan notified of patient's arrival to room 224 for admission orders, order to feed patient general diet received at this time.
[2023-07-06] MEDS: MORPHINE 2 MG/ML INJ IV (12:28)
[2023-07-06] MEDS: INFLUENZA HD VACCINE 0.7 ML SYRINGE IM (12:35)
[2023-07-06] MEDS: OXYCODONE IR 5 MG TABLET 7.5 MG PO ×3 (14:06→23:14)
[2023-07-06] MEDS: KETOROLAC 30 MG/ML VIAL 15 MG IV (14:07)
[2023-07-06] MEDS: ACETAMINOPHEN 325 MG TABLET 650 MG PO (18:58)
[2023-07-06] MEDS: SODIUM CHLORIDE 0.9% FLUSH 10 ML IV (20:38)
[2023-07-06] MEDS: HYDROMORPHONE 0.5 MG INJ IV (20:43)
[2023-07-06] MEDS: IBUPROFEN 600 MG TABLET PO (20:43)
[2023-07-06] MEDS: SODIUM CHLORIDE 0.9% 1,000 ML 125 ML IV (23:19)
[2023-07-07] VITALS (17 sets, daily range): BP systolic 131–186; BP diastolic 60–86; PULSE 56–84; RESP 11–20; TEMP 35.9–36.4; O2SAT 94–99; BMI 24.4
--- NOTE | 2023-07-07 | DI.RAD.S_ITS ---
PROCEDURE: XR TIBIA FIBULA LT 2V INDICATIONS: ORIF TECHNIQUE: Fluoroscopic images were obtained during an operative procedure and submitted for interpretation following the completion of the procedure. COMPARISON: [facility], CR, XR ANKLE LT MIN 3V, 07/06/2023, 7:24. FINDINGS: These fluoroscopic images were performed for intraoperative localization. On these images, a tibial noah has been placed. Distal lateral fibular plate and screw fixation has been placed. There is improved anatomic alignment. Please correlate with intraoperative findings. IMPRESSION: Normal intraoperative examination. Dictated by: Alfredo Galan M.D. on 07/07/2023 at 16:41 Approved by: Alfredo Galan M.D. on 07/07/2023 at 16:42
[2023-07-07] MEDS: OXYCODONE IR 5 MG TABLET 7.5 MG PO ×3 (04:19→21:59)
[2023-07-07] MEDS: SODIUM CHLORIDE 0.9% FLUSH 10 ML IV (08:42)
[2023-07-07] MEDS: ACETAMINOPHEN 325 MG TABLET 650 MG PO (10:06)
[2023-07-07] MEDS: SODIUM CHLORIDE 0.9% 1,000 ML 125 ML IV (10:06)
[2023-07-07] MEDS: HYDROMORPHONE 0.5 MG INJ IV ×3 (11:47→23:50)
[2023-07-07] MEDS: LACTATED RINGERS 1,000 ML 42 ML IV ×2 (12:50→16:30)
--- NOTE | 2023-07-07 13:29 | PM.HP.1 ---
History of Present Illness History of Present Illness Date Patient Seen: 07/07/23 Time Patient Seen: 13:29 Chief complaint: left ankle injury w gross deformity Narrative: This is a very pleasant 67-year-old female who has history of bilateral hip replacements done at our practice seen in the preoperative holding area for evaluation of a left distal tibia fracture. She states that she got up to go to the bathroom in the middle of the night at 2:00 a.m. 2 nights ago and slipped in her kitchen. She felt immediate pain and could not bear weight. She was brought to the emergency department where she was placed into a splint and imaging was obtained demonstrating a left distal tibia and fibula fracture. She currently denies any distal numbness or tingling. [facility] Medical History Borderline diabetes Cataract (lens) fragments in eye following cataract surgery, bilateral History of sinusitis Hypertension Postmenopausal Healthy adult Surgical History History of total hip arthroplasty Social History household members: none lives independently: Yes Smoking Status: Current every day smoker alcohol intake: current substance use type: does not use Meds Home Medications and Allergies Home Medications Medication Instructions Recorded Confirmed Type No Known Home Medications 07/06/23 07/06/23 History Allergies Allergy/AdvReac Type Severity Reaction Status Date / Time No Known Drug Allergies Allergy Verified 07/14/22 18:43 Review of Systems Review of Systems ROS: Yes All systems reviewed with the patient and are negative except as otherwise documented Exam Vital Signs (past 8 hours): - 07/07/23 08:30 07/07/23 09:13 07/07/23 12:54 Temperature 97.2 F L 97.5 F L Pulse Rate 56 L 58 L Respiratory Rate 18 12 Blood Pressure 173/74 H 184/86 H Pulse Oximetry 94 94 Oxygen Delivery Method Room Air Room Air Oxygen Flow Rate 0 Oxygen Delivery Method Room Air Oxygen Flow Rate 0 Narrative Exam Narrative: HEENT: Head atraumatic eyes anicteric moist mucous membranes Cardiovascular: Palpable peripheral pulses extremities are warm and well perfused Respiratory: Breathing comfortably on room air Psychiatric: Appropriate mood and affect Neuro: No acute deficits Musculoskeletal: Exam of the left lower extremity demonstrates leg in his splint. She is able to weakly flex and extend her big toe. Sensation intact in sural, saphenous, superficial peroneal and tibial nerve distributions. 2+ dorsalis pedis pulse with brisk capillary refill less than 2 seconds. Good range of motion of the hip. Objective Imaging Left ankle x-rays: My impression: AP, oblique and lateral left ankle obtain in the [facility] demonstrates a complex multipart left distal tibia and fibula fracture which are extra-articular. Labs 07/06/23 07:50 07/06/23 07:50 Assessment & Plan Assessment & Plan narrative: Assessment: 67-year-old female with closed left distal tibia and fibula fracture Plan: We discussed operative and nonoperative management options. In order to allow her to bear weight, mobilize prevent nonunion or malunion we discussed operative fixation of her fracture. Risks and benefits of surgery were discussed again including the risk of infection, damage to internal structures, bleeding, nerve injury, instability, need for revision surgery, blood clots, anesthesia and . No guarantees were made regarding outcomes. Patient expressed understanding and accepted these risks and wished to go forward with surgery and consent was signed.
[2023-07-07] MEDS: TRANEXAMIC ACID 1,000 MG in SODIUM CHLORIDE 0.9% 100 ML 200 MG IV ×2 (14:35→16:53)
[2023-07-07] MEDS: CEFAZOLIN 2 GM/100 ML PREMIX 100 ML IV (14:35)
--- NOTE | 2023-07-07 14:56 | SUR.OPER ---
Supine on padded OR bed, head on pillow, arms secured on padded arm boards at <90 degrees abduction, Left arm on padded arm board with folded blanket then gel pad under arm and gel pad under wrist for support as patient slightly turned towards right side, 2 blanket bump under patients left hip placed by Surgeon, legs uncrossed, and left leg sterily draped and in control of the Surgeon, safety belt at torso, tape over blanket over right lower leg.
[2023-07-07] MEDS: BUPIVACAINE 0.25% (PF) 30 ML, EPINEPHrine 0.15 MG INJ (15:17)
[2023-07-07] MEDS: METOCLOPRAMIDE 10 MG/2 ML INJ IV (17:41)
[2023-07-07] MEDS: ONDANSETRON 4 MG/2 ML INJ IV (17:41)
[2023-07-07] MEDS: hydrOXYzine 50 MG/ML INJ 25 MG IM (17:50)
--- NOTE | 2023-07-07 17:52 | P.OP_ITS ---
Operative Date/Time/Diagnoses Date of procedure: 07/07/23 Time of procedure: 17:53 Pre-op diagnosis: Left distal tibia and fibula fracture Post-op diagnosis: same Procedure & Clinicians Procedure: Operative treatment of left distal tibia with intramedullary nail Open treatment of left fibula with plate and screws Same procedure as scheduled: Yes Indications: This is a pleasant 67-year-old female who had a ground level fall in her kitchen 2 nights ago sustaining a left distal tibia and fibula fracture. She has been nonweightbearing and has not developed compartment syndrome. She denies any distal numbness or tingling. No other complaints at this time. We discussed that in order to restore length alignment and rotation as well as reduce the risk of nonunion or malunion and allow early mobilization Ca is indicated for operative fixation of her distal tibia and fibula fracture. Surgeon: Froylan Tristan Server Administrator: Temo Retana Anesthesia Type: General Operative Notes Findings: Left extra-articular distal tibia fracture Left fibula shaft fracture Closure Type: primary Specimen(s): none sent Prosthetic devices, grafts, tissues, transplants, or devices: Arguello and nephew meta bundy tibial nail, 10 x 40 cm 1/3 tubular plate, 7 hole Estimated Blood Loss (mL): 50 Blood products transfused: none Tourniquet time (min): 0 Procedure in detail: Operative note Patient was met in the preoperative holding area. We discussed the indications for surgery in her left lower extremity was marked with my initials. We again discussed the risks and benefits and consent was signed. She was brought back to the operating room and placed supine on the operating table. She underwent smooth induction of anesthesia. Her left lower extremity was prepped and draped in the standard sterile fashion. My initials were again confirmed on the left lower extremity and a time-out was performed. She received IV Ancef and 1 g of TXA. We began by assembling traveling traction. A jet X pin was placed through the femur as well as the calcaneus transversely. Bar to bar and pin to pin clamps were assembled and traction was applied. The clamps were then tightened. This gave us adequate reduction of the fracture as well as length and alignment. Next we began by a suprapatellar approach for a tibial nail. A 2 cm incision was made over the quadriceps tendon and the plant taxonomy teacher guide was placed underneath the patella to the proximal tibia. The starting point was found on the AP and the lateral views and a guide wire was placed down to the level of the far cortex. Opening Reamer was inserted followed by a ball-tipped guidewire which was brought down the tibia. As we approached the fracture, we clamped the bending wedge fragment and passed the ball-tipped guidewire. Once this was center center in the distal tibia past the physeal scar in the fracture remained reduced we began by reaming up to an 11. We measured and then selected a size 10 x 40 tibial nail. This was then inserted down to the level of the physeal scar. Distal interlocking bolts were then placed using perfect otoe-[place] technique we then placed 2 proximal interlocking bolts using the interlocking jig. Fluoroscopy demonstrated adequate reduction and fixation. Incisions were irrigated and closed with 3-0 PDS and 2-0 nylon. We then turned our attention to the fibula. A separate incision was made with a direct lateral approach over the fibula. The fracture was encountered and hematoma and intervening periosteum were cleared. The superficial peroneal nerve was looked for but was not seen. A 7 hole 1/3 tubular locking plate was selected and placed over the fibula. The most proximal and the most distal screw holes were filled. The distal holes were then filled completely with locking screws in the 3 proximal holes were filled with nonlocking cortical screws. This demonstrated adequate reduction. Final fluoroscopic images were used to demonstrate adequate screw lengths and fracture reduction. The lateral wound was then irrigated and closed with 3-0 Vicryl and 2-0 nylon. The wounds were dressed was Xeroform 4x4s, cast padding and a splint. Patient was woken from anesthesia without any complications and brought to the postoperative recovery unit where she received a block. Complications: none Post-operative Condition: stable Disposition: PACU Plan for aftercare: Splint to remain on for 2 weeks. She will be nonweightbearing during this time. She will then be transitioned to a tall walking boot at her 1st postoperative visit. She will be touchdown weight-bearing for the next 4 weeks. At the 6 week matt she will be full weight-bearing as tolerated.
--- NOTE | 2023-07-07 19:07 | PC.NURSE ---
Pt returned from PACU at 1850, A&Ox4, c/o 9/10 pain to LLE. Splint to LLE from knee down c/d/i. Pt able to move L toes, L great toe numb to touch, normal sensation to all other toes. Hypertensive, otherwise VSS on 2L NC. PRN dilaudid administered per NOV. Pt resting comfortably, bed in low position, call light within reach.
[2023-07-08 01:50] VITALS: BP 130/62; PULSE 69; RESP 18; TEMP 35.9; O2SAT 98
[2023-07-08] MEDS: OXYCODONE IR 5 MG TABLET 7.5 MG PO ×3 (03:15→13:25)
--- NOTE | 2023-07-08 06:51 | P.PN_ITS ---
Exam Vital Signs (past 8 hours): - 07/08/23 01:50 Temperature 96.7 F L Pulse Rate 69 Respiratory Rate 18 Blood Pressure 130/62 Pulse Oximetry 98 Oxygen Flow Rate 2 Oxygen Delivery Method Nasal Cannula Oxygen Flow Rate 2 Objective Labs 07/06/23 07:50 07/06/23 07:50 [facility] Medical History Borderline diabetes Cataract (lens) fragments in eye following cataract surgery, bilateral History of sinusitis Hypertension Postmenopausal Healthy adult Surgical History History of total hip arthroplasty Social History household members: none lives independently: Yes Smoking Status: Current every day smoker alcohol intake: current substance use type: does not use Assessment & Plan Post-op Assessment and plan (1) Status post open reduction with internal fixation (ORIF) of fracture of ankle: Assessment and Plan narrative: Splint to remain on for 2 weeks. She will be nonweightbearing during this time. She will then be transitioned to a tall walking boot at her 1st postoperative visit. She will be touchdown weight-bearing for the next 4 weeks. At the 6 week matt she will be full weight-bearing as tolerated. Postoperative Procedures: Procedures Operation Date: 07/07/23 13:45 Actual Procedure Side Surgeon p ORIF distal tibia and fibula Left Froylan Tristan MD
--- NOTE | 2023-07-08 07:11 | P.DS_ITS ---
History of Present Illness History of Present Illness Date Patient Seen: 07/08/23 Time Patient Seen: 07:12 Chief complaint: left ankle injury w gross deformity Narrative: Operative Date/Time/Diagnoses Date of procedure: 07/07/23 Time of procedure: 17:53 Pre-op diagnosis: Left distal tibia and fibula fracture Post-op diagnosis: same Procedure & Clinicians Procedure: Operative treatment of left distal tibia with intramedullary nail Open treatment of left fibula with plate and screws Same procedure as scheduled: Yes Indications: This is a pleasant 67-year-old female who had a ground level fall in her kitchen 2 nights ago sustaining a left distal tibia and fibula fracture. She has been nonweightbearing and has not developed compartment syndrome. She denies any distal numbness or tingling. No other complaints at this time. We discussed that in order to restore length alignment and rotation as well as reduce the risk of nonunion or malunion and allow early mobilization Ca is indicated for operative fixation of her distal tibia and fibula fracture. Surgeon: Froylan Tristan Poultry Farmer: Temo Retana Anesthesia Type: General Operative Notes Findings: Left extra-articular distal tibia fracture Left fibula shaft fracture Closure Type: primary Specimen(s): none sent Prosthetic devices, grafts, tissues, transplants, or devices: Arguello and nephew meta bundy tibial nail, 10 x 40 cm 1/3 tubular plate, 7 hole Estimated Blood Loss (mL): 50 Blood products transfused: none Tourniquet time (min): 0 Discharge Providers Provider Date of admission: 07/06/23 10:26 Discharge Date: 07/08/23 Primary care physician: Doctor Swapnil MD Discharge provider: Zahra Rios PA-C Summary Hospital Course Discharge Diagnosis: Left distal tib/fib fractures, s/p Operative treatment of left distal tibia with intramedullary nail and Open treatment of left fibula with plate and screws Hospital Course: Ms Ashley's hospital course was unremarkable. On the morning of POD# 1 she was eating and voiding without difficulty and her pain was well-controlled with oral medication. She had not yet been evaluated by PT following surgery. She was amenable to going home if she passed PT. Exam Vital Signs (past 8 hours): - 07/08/23 01:50 Temperature 96.7 F L Pulse Rate 69 Respiratory Rate 18 Blood Pressure 130/62 Pulse Oximetry 98 Oxygen Flow Rate 2 Oxygen Delivery Method Nasal Cannula Oxygen Flow Rate 2 Narrative Exam Narrative: Splint and dressing to LLE CDI. Sensation to light touch intact throughout LE, pt able to wiggle toes. Objective Labs 07/06/23 07:50 07/06/23 07:50 [facility] Medical History Borderline diabetes Cataract (lens) fragments in eye following cataract surgery, bilateral History of sinusitis Hypertension Postmenopausal Healthy adult Surgical History History of total hip arthroplasty Social History household members: none lives independently: Yes Smoking Status: Current every day smoker alcohol intake: current substance use type: does not use Discharge Assessment & Plan Assessment and Plan Assessment: Left distal tib/fib fractures, s/p Operative treatment of left distal tibia with intramedullary nail and Open treatment of left fibula with plate and screws Plan of Treatment: Discharge home after PT if PT agrees. NWB to LLE w/ splint in place x 2 weeks, then f/u in office. Discharge Plan Discharge Plan Patient Disposition: Home Discharge orders & Medications Prescriptions: New oxycodone 5 mg tablet 5 mg PO Q4-6H PRN (Reason: pain) Qty: 60 0RF ibuprofen 600 mg Tablet 600 mg PO Q6HR PRN (Reason: Fever/Mild Pain (1-3)) Qty: 90 0RF acetaminophen 325 mg Tablet 650 mg PO Q6H PRN (Reason: Fever/Mild Pain (1-3)) Qty: 240 0RF Follow up/Referrals: Miscellaneous,DoctorMD [Primary Care Provider] - Froylan Tristan MD [Physician] - 2 Weeks (Follow up w/ PA in Dr Tristan's office in 2 weeks for splint removal, wound check, and placement into tall walking boot. Transition to touchdown weightbearing at this time.) Diet/Activity/Treatments Diet: Diet as Tolerated Activity: Splint to remain on for 2 weeks. Nonweightbearing during this time. She will then be transitioned to a tall walking boot at her 1st postoperative visit. Touchdown weight-bearing for the next 4 weeks. At the 6 week matt she will be full weight-bearing as tolerated Skin/Wound/Dressing Care Report to your healthcare provider any signs of infection, such as:: chills, fever, night sweats, unusual drainage and unusual redness Dressing: Splint to remain dry for the next 2 weeks. Call the office if it becomes wet. Visit Report/Discharge Packet Instructions: DI for Open Reduction Internal Fixation Surgery, DI for Prescription Opioid Use Stand Alone Forms: Patient Portal/API, Stroke Signs & Symptoms, Surgery Discharge Discharge Data Primary Care Provider: Miscellaneous,Doctor
[2023-07-08 07:38] VITALS: BP 170/69; PULSE 62; RESP 16; TEMP 37; O2SAT 100
[2023-07-08] MEDS: IBUPROFEN 600 MG TABLET PO (08:21)
--- NOTE | 2023-07-08 11:06 | CM.DANOTE ---
Initial DCP Assessment Note Reviewed EMR and team rounds for pt's status and anticipated d/c needs. Met with pt at bedside, introduced self and role. Pt found to be alert, oriented, able to discuss her plan for cont. home support and cg needs. Payor: Lexis Ortiz. Attending: Dr. Tristan PT is a 67 year-old F admitted after she experienced a ground level fall at home 2-nights ago, resulting in a left distal tibia and fibula fracture. She is scheduled for d/c following therapies later this morning. Pt shares that she has ample support from very involved and close neighbors, one of whom will transport her home. Discussed what to expect with the d/c today, she shares that she has a home walker, cane, and crutches at home, and that neighbors are going to help care for her dog until she is safely capable of doing this independently. D/C orders include wearing the splint for 2-weeks, kept dry, and OP f/u with Dr. Tristan's PA in 2-weeks. She expressed understanding of plan, no further d/c needs identified at this time. Discharge Planning/Care Management Advanced directive, confirm from FAMILY Start: 07/06/23 12:22 Freq: Q24H Status: Complete Protocol: Document 07/06/23 12:22 AGW (Rec: 07/06/23 22:55 AGW [id number]) Advance Directive, confirm on record Time 21:00 Person contacted patient Copy received No Document 07/07/23 12:22 KL (Rec: 07/07/23 14:18 KL [id number]) Advance Directive, confirm on record Time 21:00 Person contacted patient Copy received No Time 12:22 Person contacted pt Copy received No Advanced directive available on record No CM Discharge Assessment Start: 07/08/23 11:02 Freq: Status: Active Protocol: Document 07/08/23 11:02 DPL (Rec: 07/08/23 11:05 DPL [id number]) Discharge Planning Assessment Assigned Geriatric Assistant CHECO Ortiz Advance Directives? Yes Advance Directives on File No History Provided By Patient,Medical Record Has Patient been admitted in last 30 No days? Prior Living Arrangements Mobile home Household Members none Type of transporation used prior to Drives own vehicle admit Independent with ADL's Yes Is patient alert and oriented? Yes Comment N/A Caregiver for Another No Patient/Family Preference OP PT Therapy Discharge Plan Home Transportation Arrangement Friend Caitlyn to transport and assist at d/c Referrals Initiated None needed Additional Comment 2 Weeks (Follow up w/ PA in Dr Tristan's office in 2 weeks for splint removal, wound check, and placement into tall walking boot. Transition to touchdown weightbearing at this time.) Whiteboard Updated in Patient Room with Yes name and ext. # of Geriatric Assistant Review Status In Process Please Provide Date Initial DC 07/08/23 Assessment Was Performed
--- NOTE | 2023-07-08 11:45 | PT.IIE ---
Current Diagnoses Unspecified fracture of shaft of left fibula, initial encounter for closed fracture (07/06/23) Personal history of (healed) traumatic fracture (07/06/23) Other specified postprocedural states (07/06/23) Surgery Performed Operation Date: 07/07/23 13:45 Actual Procedures p ORIF distal tibia and fibula(Left) - Froylan Tristan MD Surgical History (Last Reviewed 07/06/23 @ 07:23 by Minh Soliman MD) History of total hip arthroplasty Medical History (Last Reviewed 07/06/23 @ 07:23 by Minh Soliman MD) Borderline diabetes Cataract (lens) fragments in eye following cataract surgery, bilateral Healthy adult History of sinusitis Hypertension Postmenopausal Physical Therapy Inpatient Evaluation/Re-Eval M1 PT/OT-IP Prior Functional Status Start: 07/08/23 12:24 Freq: NEEDED Status: Active Protocol: Document 07/08/23 12:24 AB (Rec: 07/08/23 12:53 AB [id number]) Medical Review Prior Functional Status Medical History Reviewed Yes Communication Pt is able to express all needs. Mobility and Gait Pt ambulated independently. Activities of Daily Living and IADL's IND with ADLs and IADLs Social History Household Members none Living Arrangements Mobile home Number of Floors (Floors) One Floor Number of Stairs To Enter/Railing? 4 JAY with R Home Environment Standard Height Toilet,Walk in Shower Home Equipment Front Wheel Walker,Straight Cane,Shower Seat with Backrest ,Hand Held Shower Additional Social History Comment Pt reports she has neighbors who can physically assist her and help her with other needs. She states she does not want to go to SNF at this time. M2 PT-IP Current Condition Start: 07/08/23 12:24 Freq: NEEDED Status: Active Protocol: Document 07/08/23 12:24 AB (Rec: 07/08/23 12:53 AB [id number]) Physical Therapy Current Condition Current Condition Evaluation Date 07/08/23 Treatment Diagnosis left tiba and fibula fx s/p surgical repair; difficulty in walking Onset Date 07/07/23 M3 PT-IP Subjective Start: 07/08/23 12:24 Freq: NEEDED Status: Active Protocol: Document 07/08/23 12:24 AB (Rec: 10/12/23 12:53 AB [id number]) Subjective Physical Therapy Visit Type Type Initial Evaluation Visit Start Time 10:18 Visit Stop Time 11:45 Total Visit Minutes 87 Physical Therapy Visit Comments Patient Comments Pt presents semi supine in bed and is agreeable to PT evaluation. Therapy Pain Assessment Pain When Pain Assessed At Rest Pain Present Pain Present Pain Reported Location left ankle Scale Used did not state M4 PT-IP Mobility and Gait Start: 07/08/23 12:24 Freq: NEEDED Status: Active Protocol: Document 07/08/23 12:24 AB (Rec: 07/08/23 12:53 AB [id number]) PT-Bed Mobility Assessment Rolling Type of Rolling Bilateral Level of Assist Independent Supine to Sit Supine to Sit Independent Sit to Supine Sit to Supine Independent Scooting Scooting to Edge of Bed Independent PT-Transfer Assessment Sit to and From Stand Sit to and from Stand Standby Assistance,Use of Upper Extremities Equipment Transfer Assistive Device Gait Belt,Front Wheeled Walker Transfers Transfer Destination Bed,Chair,Wheelchair Transfer Technique Stand Step Pivot Transfer Ability Level of Assist Standby Assistance,Use of Upper Extremities Comments Mobility Comments The pt is able to perform bed mobility independently. Once sitting at EOB, the pt denies symptoms, and she was educated on NWB through LLE and proper hand placement to perform STS . The pt is able to perform STS with CGA. She then trialed hopping to attempt ambulation but had difficulty due to weakness. The pt was allowed to rest then gait was reattempted (see details below for gait and stairs). Upon returning to room, the pt transfered to chair to rest, all needs were met and call light was placed within reach. RN was informed of findings. Gait Assessment Gait Gait Assistance Required: Standby Assistance,Contact Guard Assist Distance (Feet) 30 Able to Maintain Weight Bearing Status Yes During Gait Assistive Devices Assistive Device Gait Belt,Front Wheeled Walker Orthotic/Prosthetic Devices or Brace: Yes Gait Deviations General Gait Pattern Decreased Stride Length, Decreased Feet Clearance,Step- to Gait Factors Limiting Gait Function Factors Limiting Gait Function Decreased Activity Tolerance, Decreased Strength Comments Gait Comments The pt was able to ambulate 7 feet before needing a seated rest break, using FWW and with CGA. Gait deviations consistent with NWB precautions, however due to weakness she has decreased right foot clearance. After an extended rest break, the pt is able to ambulate 30ft with FWW and SBA. When returning to room after attempting stairs, the pt is able to ambulate from w/c to chair (5ft) with CGA but shows increased instability due to fatigue. Stair Climbing Assessment Evaluation Level of Assist On Stairs Moderate Assistance,Maximal Assistance,1 Person Assistance Devices Stair Climbing Assistive Devices Left Railing,Right Railing Technique/Endurance Stair Climbing Direction Descend Stair Climbing Technique Sitting Bump Number of Steps Climbed 2 Query Text: Stair Climbing Set # Repetitions (reps) 1 Comments Stair Climbing Comments PT instructed pt in proper way to ascend steps with bilateral hand rails, however pt does not have the strength to hop up the stairs, though she reports these are taller than her steps at home. PT then instructed pt in how to perform sitting bump in order to ascend stairs. Pt is able to lower herself on to third step, but then cannot use bilateral hand rails to stand up at the top, even with maxA from PT. Pt then descend steps with sitting bump technique, but requires mod-maxA x1 to stand up, using bilateral hand rails. PT-Balance Assessment Sitting Balance and Reactions Static Sitting Balance Ability Normal Dynamic Sitting Balance Ability Normal Standing Balance and Reactions Static Standing Balance Ability Good Dynamic Standing Balance Ability Fair Device Used FWW M5 PT-IP Objective Assessments Start: 07/08/23 12:24 Freq: NEEDED Status: Active Protocol: Document 07/08/23 12:24 AB (Rec: 07/08/23 12:53 AB [id number]) Orientation Orientation/Cognition Level of Alertness Alert Orientation Name,Age,Birthday,Month,Date, Year,Day of Week,Place, Situation Language Function Ability No Deficits Noted Safety Awareness Understands Safety Issues Memory Description No Deficits Noted Gross Range of Motion Upper Extremity ROM Assessment Within Functional Limits Lower Extremity ROM Assessment Left Impaired Strength Upper Extremity Strength Assessment Within Functional Limits Lower Extremity Strength Assessment Left Impaired M6 PT-IP Treatment Start: 07/08/23 12:24 Freq: NEEDED Status: Active Protocol: Document 07/08/23 12:24 AB (Rec: 07/08/23 12:53 AB [id number]) Physical Therapy Treatment Education Education Provided Precautions,Weight Bearing Status,Safety Brace Education Patient M7 PT-IP Assessment and Plan Start: 07/08/23 12:24 Freq: NEEDED Status: Active Protocol: Document 07/08/23 12:24 AB (Rec: 07/08/23 12:53 AB [id number]) PT Summary Assessment and Plan Potential Rehabilitation Potential Good Status of Condition at Evaluation Stable Summary Impairments Pain,ROM,Strength,Balance,Bed Mobility,Transfers,Gait, Activity Tolerance Assessment Summary Kaitlyn Ashley is a 67 year old female patient who is s/p surgical repair of left tibia and fibula fractures which occurred after a ground level fall on 07/07/23. The pt has deficits consistent with this medical diagnosis and surgical procedure, which are limiting her ability to perform functional mobility independently and safely. While the pt is independent with bed mobility, she required CGA for STS, transfers and ambulation due to weakness and fatigue. The pt was able to ambulate up to 30ft with FWW and while maintaining precautions, but is more unsteady as she fatigues. The pt was unable to safely ascend stairs, even with maxA x1, and required mod -maxA to descend stairs. Based on her current limitations and level of function, PT recommends discharge to SNF in order to improve these deficits prior to discharging to home, specifically due to her inability to ascend/ descend stairs safely at this time. Continued skilled PT is recommended both during the course of her hospitalization as well as once she is cleared by her surgeon to attend PT. Goals Bed Mobility Goal Independent Transfer Goal Independent,Front Wheeled Walker Gait Goal Independent,Front Wheel Walker Gait Distance 50 Other Goals Pt to be able to ascend/ descend steps using sit and bump technique or step to step technique independently in order to demonstrate pt is safe to discharge to home environment. Days to Meet Goals 5 Frequency of Treatment Frequency Of Treatment Twice a Day Treatment Plan Physical Therapy Treatment Plan Bed Mobility Training,Transfer Training,Gait Training, Therapeutic Exercise,Balance Retraining,Post Op Education, Discharge Planning,Hot or Cold Pack,Neuromuscular Re-ed, Coordination Retraining,Manual Therapy Other Recommendations and Next Treatment Stairs training Focus Weight Bearing Status Weight Bearing Status Non-Weight Bearing Recommendations To Nursing Amount of Assist Needed Standby Assistance,1 Person Assist Discharge Recommendations PT Discharge Recommendations SNF Rehab Transportation Needs at Discharge Private Vehicle,Wheelchair/ Cabulance
--- NOTE | 2023-07-08 12:01 | CM.DPC ---
DCP Cont-update PT is recommending SNF rehab due to pt's inability to navigate the stairs during therapy. Spoke with pt re: this recommendation, and that her managed care MCR would cover this. She adamantly refused, and states that she has several strong men that live in RV's around her, and they will plan to meet her at her RV to help her get up the stairs once she gets home. Her friend will plan to pick her up in the next hour or so. No further needs identified at this time.
--- NOTE | 2023-07-08 14:57 | OT.IP.EVAL ---
Current Diagnoses Unspecified fracture of shaft of left fibula, initial encounter for closed fracture (07/06/23) Personal history of (healed) traumatic fracture (07/06/23) Other specified postprocedural states (07/06/23) Surgery Performed Operation Date: 07/07/23 13:45 Actual Procedures p ORIF distal tibia and fibula(Left) - Froylan Tristan MD Past Medical History (Last Reviewed 07/06/23 @ 07:23 by Minh Soliman MD) Borderline diabetes Cataract (lens) fragments in eye following cataract surgery, bilateral Healthy adult History of sinusitis Hypertension Postmenopausal Surgical History (Last Reviewed 07/06/23 @ 07:23 by Mnih Soliman MD) History of total hip arthroplasty Occupational Therapy Inpatient Evaluation/Re-Eval M1 PT/OT-IP Prior Functional Status Start: 07/08/23 13:36 Freq: NEEDED Status: Active Protocol: Document 07/08/23 14:41 [facility] (Rec: 07/08/23 15:23 [facility] [id number]) Medical Review Prior Functional Status Medical History Reviewed Yes Communication Pt is able to express all needs. Mobility and Gait Pt ambulated independently. Activities of Daily Living and IADL's IND with ADLs and IADLs Social History Household Members none Living Arrangements Mobile home Number of Floors (Floors) One Floor Number of Stairs To Enter/Railing? 3 shorter steps with biltaral rails Home Environment Standard Height Toilet,Walk in Shower Home Equipment Front Wheel Walker,Straight Cane,Shower Seat with Backrest ,Hand Held Shower Additional Social History Comment Pt reports she has neighbors who can physically assist her and help her with other needs. She states she does not want to go to SNF at this time. M2 OT-IP Current Condition Start: 07/08/23 13:36 Freq: Status: Active Protocol: Document 07/08/23 14:41 [facility] (Rec: 07/08/23 15:23 [facility] [id number]) Occupational Therapy Current Condition Current Condition Evaluation Date 07/08/23 Treatment Diagnosis S/P Left distal fibia with intramedullary nail Diagnosis Onset Date 07/06/23 Weight Bearing Status Weight Bearing Status Non-Weight Bearing Allowed Weight Bearing Amount (enter % Pt is to be NWB on LLE for two or #) (%) weeks with splint on. M3 OT- IP Subjective and Pain Start: 07/08/23 13:36 Freq: Status: Active Protocol: Document 07/08/23 14:41 [facility] (Rec: 07/08/23 15:23 [facility] [id number]) OT- Subjective Occupational Therapy Visit Type Type Initial Evaluation Visit Start Time 14:41 Visit Stop Time 14:57 Total Visit Minutes 16 Occupational Therapy Visit Comments Patient Comments Pt agreed to get up to use the bathroom. Patient/Caregiver Goals TO go home. OT Pain Assessment Pain When Pain Assessed During Mobility Pain Present Pain Present Pain Reported Location left ankle Pain Behaviors Facial Grimacing M4 OT- IP ADL's Start: 07/08/23 13:36 Freq: Status: Active Protocol: Document 07/08/23 14:41 [facility] (Rec: 07/08/23 15:23 [facility] [id number]) OT [id number] General Evaluation Self-Feeding Ability Independent OT ADL-Grooming General Evaluation Grooming Ability Independent OT ADL-Oral Care General Eval Oral Care Ability Independent OT ADL-Dressing General Eval Upper Body Dressing Ability Independent Lower Body Dressing Ability Standby Assistance Comments OT Dressing Comments Pt able to erica doff her brief while standing to hold to the grab bar. Pt able to lift her RLE up in order to erica/dof her socks. Suggested pt wear loose clothing and cut the LLE pant leg shorter to be able to erica/doff her LLE splint on and off easier , otherwise to wear shorts. OT ADL-Toileting General Evaluation Toileting Ability Standby Assistance Comments OT Toileting Comments Educated pt to get a BSC to place over the toilet for increased ease to come to stand. OT ADL-Bathing Comments OT Bathing Comments Pt states will have assist at home for showering needs and aware to cover her leg initially. M5 OT- IP IADL's Start: 07/08/23 13:36 Freq: Status: Active Protocol: Document 07/08/23 14:41 [facility] (Rec: 07/08/23 15:23 [facility] [id number]) OT-Instrumental Activities of Daily Living Deficits IADL Deficits Identified Deficits Home Safety Awareness Awareness of Need for Assistance at Home Good Awareness Ability to Problem Solve Emergency Able to Problem Solve Situations Medication Management Medication Management No Deficits Identified Money Management Money Management No Deficits Identified Meal Preparation Meal Preparation Caregiver Provides Assist Member Of [employer] Legislative [employer] Member Of [place] [employer] [place] Caregiver Provides Assist M6 OT- IP Functional Cognition Start: 07/08/23 13:36 Freq: Status: Active Protocol: Document 07/08/23 14:41 [facility] (Rec: 07/08/23 15:23 [facility] [id number]) Cognitive Factors Limiting Selfcare Function Cognitive Ability Level of Alertness Alert Patient Orientation Name,Age,Birthday,Month,Date, Year,Day of Week,Place, Situation Attention Span Ability Capable of Focused Attention, Capable of Sustained Attention Ability to Follow Commands Able to Follow Multi-Step Commands Memory Description No Deficits Noted Cognitive Comments Cognitive Assessment Comments Pt able to follow commands for all ADl and mobility needs. OT- Vision and Hearing OT- Hearing Assessment OT- Hearing Assessment WFL M7 OT- IP Mobility and Balance Start: 07/08/23 13:36 Freq: Status: Active Protocol: Document 07/08/23 14:41 [facility] (Rec: 07/08/23 15:23 [facility] [id number]) OT-Transfer Assessment Sit to and From Stand Sit to and from Stand Independent Transfers Transfer Ability Standby Assistance Technique Transfer Destination Bed,Bedside Commode,Toilet Transfer Technique Stand Step Pivot Devices Transfer Assistive Devices Gait Belt,Front Wheeled Walker Comments Mobility Comments Pt independent to stand and able to use the FWW with close SBA and then distal SBA. Pt had slight loss of balance and able to catch herself. Suggested pt use her clog/shoe while hopping on her right foot or side her foot side to side during turns. Suggested pt have a wc in the rv if able to fit inside for mobility of longer distances. OT- Balance Assessment Sitting Balance and Reactions Static Sitting Balance Ability Normal Dynamic Sitting Balance Ability Normal Standing Balance and Reactions Static Standing Balance Ability Good Dynamic Standing Balance Ability Fair M8 OT- IP Objective Assessments Start: 07/08/23 13:36 Freq: Status: Active Protocol: Document 07/08/23 14:41 [facility] (Rec: 07/08/23 15:23 [facility] [id number]) OT Gross Range of Motion Upper Extremity Range of Motion Assessment Within Functional Limits OT Strength Upper Extremity Strength Assessment Within Functional Limits M9 OT- IP Assessment and Plan Start: 07/08/23 13:36 Freq: Status: Active Protocol: Document 07/08/23 14:41 [facility] (Rec: 07/08/23 15:23 [facility] [id number]) OT Summary Assessment and Plan Potential Rehabilitation Potential Excellent Analytic Complexity at Evaluation Moderate Summary OT Impairments Pain,Balance,Functional Mobility,Dressing,Toileting, Bathing Progress Towards Goals Progressing Toward Goals Assessment Summary Pt MOD complexity and would greatly benefit from short skilled rehab as pt has steps to get into her mobile home , NWB for LLE , lives on her own , and will need assist for showering and IADl needs. Pt is insistent on going home at this time. Pt will benefit from getting a BSC and WC. Goals Grooming Goal Independent Dressing Goal Independent Toileting Goal Independent Bathing Goal Independent Toilet Transfer Goal Independent Shower Transfer Goal Independent Days to Meet Goals 5 Frequency of Treatment Frequency Of Treatment Once a Day Treatment Plan OT Treatment Plan ADL Training,Functional Mobility,Patient/Family Education,Discharge Planning Discharge Recommendations OT Discharge Recommendations SNF Rehab, Home vs SNF, if pt insistent on going home- home with assist and home health Home Equipment Needs BSC, wc Transportation Needs at Discharge Private Vehicle,Wheelchair/ Cabulance
--- NOTE | 2023-07-08 15:10 | CM.DPC ---
DCP Note-Update Pt has decided she does want Home Health to follow at home. Called [facility] to initiate referral and review for acceptance for OT/PT. They said unless they hear back from us, there should be no issues. Notified pt and provided her a brochure.
--- NOTE | 2023-07-08 15:49 | PC.NURSE ---
Patient is A&OX4. Initially SBP elevated this a.m. and patient stating her pain was 9/10 at this time. She reports her pain is well controlled with prn oxycodone bringing pain level down to 4-5/10 to LLE. +CMS to toes on L foot. Patient is compliant with NWB to LLE and able to hop using FWW. PA at bedside clears patient medically for discharge home today pending PT recommendations. She is able to participate with PT this a.m. and maneuver well on level ground in her room and to the BR using FWW, however per PT she is not safe /cleared to get up stairs on mobile home with every option. Per PT, STR would be safest for patient discharge. Patient is refusing to go to SNF this afternoon and states she has friends who can help move her at home. MD Tristan notified and informed RN that she is cleared to discharge home. She verbalizes understanding of activity limitations, site care, medications and follow up appointment with MD Tristan on at 8:15 a.m. She is escorted via w/ch to private vehicle with her friend for discharge home at approximately 1540 this afternoon.
--- NOTE | 2023-07-10 15:39 | CM.DPNOTE ---
Home Health Received call from Rashad at [facility], requesting HH order and F2F. Submitted order. Unfortunately, no F2N available signed by Dr Tristan. Updated Rashad cabrera/Paras. JW
--- NOTE | 2023-07-12 11:13 | CM.DPNOTE ---
Call from Rashad at [facility] for pt that discharged a few days ago and [facility] referral had been made by Care Management staff. F2F had not been obtained by pt's Ortho MD Dr. Tristan prior to discharge. [facility] has HH orders and clinicals but needs F2F. SW helped to fill out the F2F and then MARION Tarango faxed to [facility] and called requesting that Dr. Tristan sign and fax back in order to scan for [facility] to start services with the patient. [facility] Cornelius
== END 2023-07-08 15:40 | disposition home health service (06) | DRG 494 ==
LOC: ED 09:11 → AC 10:27
PROVIDERS: Admitting Provider Orthopaedic Surgery; Emergency Provider Emergency Medicine; Referring Provider Emergency Medicine; Visit Provider Orthopaedic Surgery
PROC: 0QSH06Z Reposition Left Tibia with Intramedullary Internal Fixation Device, Open Approach (ICD-10-PCS; principal; 2023-07-07 13:45)
DX: S82.302A Unspecified fracture of lower end of left tibia, initial encounter for closed fracture (principal); S82.832A Other fracture of upper and lower end of left fibula, initial encounter for closed fracture; F17.210 Nicotine dependence, cigarettes, uncomplicated; W01.0XXA Fall on same level from slipping, tripping and stumbling without subsequent striking against object, initial encounter; Z23 Encounter for immunization
CPT/HCPCS: 64450; 73590; 73610; 76000; 80053; 80320; 85025; 90471; 90662; 94762; 97161; 97166; 97535; 99284; 99285; J0171; J0690; J1100; J1170; J1885; J2270; J2405; J2704; J2765; J3010; J3410

== ENCOUNTER → 2023-08-10 08:52 | Outpatient (CLI) | payer OTHER, SELFPAY ==
[2023-07-06 12:10] VITALS: BMI 24.4
== END ==
PROVIDERS: Referring Provider Physician Assistant; Visit Provider Surgery
DX: T81.31XA Disruption of external operation (surgical) wound, not elsewhere classified, initial encounter (principal); Z72.0 Tobacco use; G57.83 Other specified mononeuropathies of bilateral lower limbs
CPT/HCPCS: 11042; 87070; 87075; 87205; 99204; 99214

== ENCOUNTER 2023-08-14 08:00 | Observation (INO) | payer OTHER, SELFPAY ==
[2023-07-06 12:10] VITALS: BMI 24.4
[2023-08-14 08:26] VITALS: BMI 31.6
--- NOTE | 2023-08-14 08:29 | P.HP_ITS ---
History of Present Illness History of Present Illness Chief complaint: L leg infection hardware/ place picc line Narrative: Kaitlyn Ashley is a 67yo F with PMH of chronic heavy tobacco use, bilateral hip replacements and recent L distal tib-fib fracture s/p hardware placement in Jun 2023 who is presented from [facility] ID clinic as a direct admit for IV antibiotics given concern for hardware infection. [facility] Medical History Borderline diabetes Cataract (lens) fragments in eye following cataract surgery, bilateral History of sinusitis Hypertension Postmenopausal Healthy adult Surgical History History of total hip arthroplasty Social History household members: none lives independently: Yes Smoking Status: Current every day smoker alcohol intake: current substance use type: does not use Meds Home Medications and Allergies Home Medications Medication Instructions Recorded Confirmed Type acetaminophen 325 mg tablet 650 mg (2 x 325 mg) PO Q6H PRN 07/08/23 Rx Fever/Mild Pain (1-3) #240 tabs ibuprofen 600 mg tablet 600 mg PO Q6HR PRN Fever/Mild Pain 07/08/23 Rx (1-3) #90 tabs oxycodone 5 mg tablet 5 mg PO Q4-6H PRN pain #60 tabs 07/08/23 Rx Allergies Allergy/AdvReac Type Severity Reaction Status Date / Time No Known Drug Allergies Allergy Verified 07/14/22 18:43 Review of Systems Review of Systems Narrative: All other systems reviewed with the patient and are negative unless otherwise stated. Exam Vital Signs (past 8 hours): GEN: no acute distress HEENT: moist mucous membranes, PERRL NECK: trachea midline, no JVD CV: regular rate and rhythm, no murmurs PULM: clear bilaterally ABD: soft, nontender, nondistended, no organomegaly EXT: warm and well perfused with no edema NEURO: awake, alert, oriented, no focal deficits Assessment & Plan Assessment & Plan narrative: # left distal tib-fib hardware infection -plan for direct admit for IV dapto per [facility] ID, PICC line once BC neg at 48hrs, then dc for outpatient washout/hardware removal with Dr. Tristan on 08/18 -dapto 8mg/kg q24hr -check CK -check blood cultures -wound culture # heavy tobacco use -nicotine patch Code status is full code. DVT prophylaxis with Lovenox. Proxy is friend Caitlyn. I have reviewed home meds and used all available resources to reconcile the home meds. Case discussed with infectious disease doctor and patient will be admitted to the hospitalist service for further workup and management. This patient will be admitted as observation and will require less than 2 midnights of hospital time to treat left leg hardware infection.
[2023-08-14 08:40] VITALS: BP 172/84; PULSE 84; RESP 17; TEMP 36.4; O2SAT 97
--- NOTE | 2023-08-14 10:30 | PM.HP.1 ---
History of Present Illness History of Present Illness Date Patient Seen: 08/14/23 Chief complaint: L leg infection hardware/ place picc line Narrative: *This H&P created to place in correct encounter* Kaitlyn Ashley is a 67yo F with PMH of chronic heavy tobacco use, bilateral hip replacements and recent L distal tib-fib fracture s/p hardware placement in Jun 2023 who is presented from [facility] ID clinic as a direct admit for IV antibiotics given concern for hardware infection. Patient fell in her kitchen about a month ago and sustained a distal tib-fib fracture. Underwent surgical repair with plates and screws with Dr. Tristan but the post-op wound dehisced and never healed. Began seeing wound care with Dr. Arroyo and was then sent to Dr. Paez at [facility] for concern for hardware infection. Dr. Paez noted increased drainage at the wound site and visibly exposed hardware. She was directly admitted for IV abx. Patient notes no significant pain at the site. Denies fever/chills, NV, CP, SOB, abd pain or diarrhea. [facility] Medical History Borderline diabetes Cataract (lens) fragments in eye following cataract surgery, bilateral History of sinusitis Hypertension Postmenopausal Healthy adult Surgical History History of total hip arthroplasty Social History household members: none lives independently: Yes Smoking Status: Current every day smoker alcohol intake: current substance use type: does not use Meds Home Medications and Allergies Home Medications Medication Instructions Recorded Confirmed Type acetaminophen 325 mg tablet 650 mg (2 x 325 mg) PO Q6H PRN 07/08/23 08/14/23 Rx Fever/Mild Pain (1-3) #240 tabs ibuprofen 600 mg tablet 600 mg PO Q6HR PRN Fever/Mild Pain 07/08/23 08/14/23 Rx (1-3) #90 tabs oxycodone 5 mg tablet 5 mg PO Q4-6H PRN pain #60 tabs 07/08/23 08/14/23 Rx Allergies Allergy/AdvReac Type Severity Reaction Status Date / Time No Known Drug Allergies Allergy Verified 07/14/22 18:43 Review of Systems Review of Systems Narrative: All other systems reviewed with the patient and are negative unless otherwise stated. Exam Vital Signs (past 8 hours): - 08/15/23 08:00 Temperature 97.2 F L Pulse Rate 61 Respiratory Rate 16 Blood Pressure 151/51 H Pulse Oximetry 98 Oxygen Flow Rate 0 Oxygen Delivery Method Room Air Oxygen Flow Rate 0 Narrative Exam Narrative: GEN: no acute distress HEENT: moist mucous membranes, PERRL NECK: trachea midline, no JVD CV: regular rate and rhythm, no murmurs PULM: clear bilaterally ABD: soft, nontender, nondistended, no organomegaly EXT: Left lateral malleolus wound with exposed plate and screws, no purulent drainage NEURO: awake, alert, oriented, no focal deficits Objective Labs 08/14/23 11:35 08/14/23 11:35 Labs: Laboratory Results - last 24 hr 08/14/23 08/15/23 11:35 05:25 WBC 7.5 RBC 3.98 L Hgb 13.0 Hct 38.1 MCV 95.7 MCH 32.7 MCHC 34.2 RDW 13.4 Plt Count 319 Neut % (Auto) Not Reportable Lymph % (Auto) Not Reportable [place] % (Auto) Not Reportable Eos % (Auto) Not Reportable Baso % (Auto) Not Reportable Lymph # (Auto) Not Reportable [place] # (Auto) Not Reportable Baso # (Auto) Not Reportable Total Counted 100 Seg Neutrophils % 71.0 H Lymphocytes % (Manual) 25.0 Monocytes % (Manual) 2.0 Eosinophils % (Manual) 1.0 L Metamyelocytes % 1.0 H Neutrophils # (Manual) 5325 RBC Morphology Normal morphology Sodium 137 Potassium 3.8 Chloride 104 Carbon Dioxide 27 BUN 17 Creatinine 0.67 Estimated GFR > 60 BUN/Creatinine Ratio 25.4 H Glucose 113 H Calcium 10.1 Magnesium 1.1 L 1.6 Total Bilirubin 0.9 AST 33 ALT 25 Alkaline Phosphatase 118 Total Creatine Kinase 28 L Total Protein 7.8 Albumin 4.4 Globulin 3.4 Albumin/Globulin Ratio 1.3 Assessment & Plan Assessment & Plan narrative: # left distal tib-fib hardware infection -plan for direct admit for IV dapto per [facility], PICC line once BC neg at 48hrs, then dc for outpatient washout/hardware removal with Dr. Tristan on 08/18 -dapto 8mg/kg q24hr -check CK -check blood cultures -wound culture # heavy tobacco use -nicotine patch Code status is full code. DVT prophylaxis with Lovenox. Proxy is friend Caitlyn. I have reviewed home meds and used all available resources to reconcile the home meds. Case discussed with infectious disease doctor and patient will be admitted to the hospitalist service for further workup and management. This patient will be admitted as observation and will require less than 2 midnights of hospital time to treat left leg hardware infection. Quality VTE Deep Vein Thrombosis/Pulmonary Embolism Present on Admission: No
[2023-08-14] MEDS: SODIUM CHLORIDE 0.9% IV (10:56)
[2023-08-14] MEDS: DAPTOMYCIN IV (10:56)
--- NOTE | 2023-08-14 11:05 | CM.DANOTE ---
Addendum entered by Krystle Zhao R.N. 08/14/23 14:46: CM team recieved referral for the coordination of home infusion. Packet faxed to [facility] at [phone] with new Rx for Daptomycin 480 gm IV Q 24 for 6 weeks. CM team also recieved referral for post-op wound vac planning. CM team can send packet to for wound vac planning with orthopedic MD signature for proposed post-op wound. wound vac form completed with existing information and packet faxed for review to [phone]. Original Note: Met with patient/family to discuss discharge planning. They agree to assessment. Initial assessment navigated with patient chart and current available information. Pt is a 67 year old admitted for infection of left ankle/hardware. PCP: Amanda Soliz Payer: [employer] HARR[employer] DME: Has cane/own FWW at home from prior surgery Admeasurer: Friend Caitlyn Kennedycourtgraham Therapies: Currently on service with [facility] for RN (wound care to left ankle, states exposed hardware, PT, OT) Reviewed chart, pt discussed in multidisciplinary rounds this morning. 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 Barriers: [place] alone [address] [facility]. Friends neighbors for support only who will be away over . Has dog that neighbors are assisting with for now. CM team following for further transitions with plan for IV ABX dependent upon contracts with [employer] . Call to Jose at [facility] and they are contracted. Packet sent to fax [phone] Discharge Planning/Care Management Advanced directive, confirm from FAMILY Start: 08/14/23 09:09 Freq: Q24H Status: Active Protocol: Document 08/14/23 09:09 MM (Rec: 08/14/23 09:13 MM [id number]) Advance Directive, confirm on record Time 09:13 Person contacted pt Copy received No CM Discharge Assessment Start: 08/14/23 11:01 Freq: Status: Active Protocol: Document 08/14/23 11:02 BQ (Rec: 08/14/23 11:04 BQ [id number]) Discharge Planning Assessment Assigned Burr Bench Hand Krystle Zhao RN CM DPOA/Assigned Designee Name None Advance Directives? Yes Advance Directives on File No History Provided By Patient,Medical Record Has Patient been admitted in last 30 No days? Prior Living Arrangements RV Household Members none Type of transporation used prior to Relies on Others admit Independent with ADL's Yes Is patient alert and oriented? Yes Needs Assistance With Home Chores / Shopping Caregiver for Another No Community Services used prior to Physical Therapy,Occupational admission: Therapy,Wound Care DME Already Rented / Owned FWW / Walker,Cane Patient/Family Preference OP PT Therapy Barriers to Discharge Yes Comment Wound Cx/blood Cx Discharge Plan Home Community Services Physical Therapy,Occupational Therapy,IV Therapy,Wound Care Transportation Arrangement Friend Caitlyn to transport and assist at d/c Referrals Initiated None needed Medicare Choice List Provided No SNF/HH Preference On service with [facility] and this is patients choice Whiteboard Updated in Patient Room with Yes name and ext. # of Burr Bench Hand Review Status In Process Next Review Type Continued Stay Review
[2023-08-14] MEDS: SODIUM CHLORIDE 0.9% 250 ML 21 ML IV (11:07)
[2023-08-14 11:56] LABS: Hematocrit 38.1 % (36-46); Mean Corpuscular HGB Conc 34.2 % (30-36); Mean Corpuscular Hemoglobin 32.7 PG (26-34); Mean Corpuscular Volume 95.7 fL (80-100); Platelet Count 319 X10^3/uL (150-400); Red Blood Cell Count 3.98 X10^6/uL (4.0-5.2); Red Cell Distribution Width 13.4 % (11.6-14.8); White Blood Cell Count 7.5 X10^3/uL (4.5-11.0)
[2023-08-14 11:57] LABS: Add Manual Diff / Slide Review YES
[2023-08-14 12:01] LABS: Alanine Aminotransferase 25 IU/L (<35); Albumin 4.4 g/dL (3.5-5.0); Albumin Globulin Ratio 1.3 (1.0-2.8); Alkaline Phosphatase 118 U/L (38-126); Aspartate Aminotransferase 33 IU/L (14-36); BUN Creatinine Ratio 25.4 (6-22); Bilirubin Total 0.9 mg/dL (0.2-1.3); Blood Urea Nitrogen 17 mg/dL (7-17); Calcium 10.1 mg/dL (8.4-10.2); Carbon Dioxide 27 mmol/L (22-32); Chloride 104 mmol/L (98-107); Estimated Glomerular Filt Rate > 60 mL/min (>60); Globulin 3.4 g/dL (1.7-4.1); Glucose 113 mg/dL (80-110); HEMOLYSIS 16 (0-50); Potassium 3.8 mmol/L (3.4-5.1); Sodium 137 mmol/L (137-145); Total Protein 7.8 g/dL (6.3-8.2)
[2023-08-14 12:02] LABS: Creatine Kinase 28 U/L (30-135); Magnesium 1.1 mg/dL (1.6-2.3)
--- NOTE | 2023-08-14 12:11 | DI.RAD.S_ITS ---
PROCEDURE: XR CHEST 1V INDICATIONS: PICC placement TECHNIQUE: One view of the chest was acquired. COMPARISON: [facility], CR, XR CHEST 1V, 02/06/2022, 7:41. FINDINGS: Surgical changes and devices: Right PICC with tip in the superior vena cava. Lungs and pleura: Lungs are clear. No pleural effusions or pneumothorax. Mediastinum: Mediastinal contours appear normal. Heart size is normal. Bones and chest wall: No suspicious bony lesions. Overlying soft tissues appear unremarkable. Remote left rib fractures. IMPRESSION: Appropriate positioning of right PICC Dictated by: Minh Bashir M.D. on 08/14/2023 at 11:48 Approved by: Minh Bashir M.D. on 08/14/2023 at 11:49
[2023-08-14 12:16] LABS: Neutrophils Absolute Manual 5325 /uL (3000-5900); RBC Morphology Normal Morphology; Total Cells Counted 100
[2023-08-14] MEDS: MAGNESIUM SULFATE 4 GM/100 ML PIGGYBACK IV (13:34)
[2023-08-14 17:49] VITALS: BP 168/61; PULSE 69; RESP 18; TEMP 36.5; O2SAT 98
[2023-08-15 01:00] VITALS: BP 156/76; PULSE 65; RESP 16; TEMP 36.5; O2SAT 99
[2023-08-15 06:25] LABS: Magnesium 1.6 mg/dL (1.6-2.3)
[2023-08-15 08:00] VITALS: BP 151/51; PULSE 61; RESP 16; TEMP 36.2; O2SAT 98
--- NOTE | 2023-08-15 08:31 | CM.DPC ---
Addendum entered by Regina Nelson R.N. 08/15/23 15:52: Faxed over PICC line measurements to [facility], upon their request. Addendum entered by Regina Nelson R.N. 08/15/23 11:06: Confirmed that patient will not need wound vac until after surgery, which is Wed. Will hold on to [employer] form, left Sara another voice mail at [facility]. Spoke to Pastora at [facility], have a nurse set up for tomorrow to see patient at home for infusion, gave them her address of her [facility]. Spoke to Rashad at [facility], he did not know she was here, updated him, did put in resumption orders for nursing, he indicated, he has access, no need to fax. Let him know that patient may be having her surgery Wed, and may have would vac after. Their nursing team will continue to follow up. Addendum entered by Regina Nelson R.N. 08/15/23 09:14: Met with patient, introduced self and role. Confirmed with patient, home is the plan. She was hopeful for home today, but will depend if she needs wound vac, does not have one on currently. Can verify home set up with [facility]. Did call [facility], spoke to pharmacist, Pastora. Her direct number is: [phone]. She thinks that she did get referral, will call back if she has any questions, but feels that she can be squeezed in tomorrow, if she gets her dose today. Let her know that this DC Bonsai Tender will have more information after team rounds, barrier would be if she needs her wound vac prior to her surgery. Original Note: DCP Cont: Left a message with Sara at [facility], regarding wound vac for patient, [employer] form was completed by Pre[employer] and faxed. Patient will also need IV ABO upon discharge, was sent to [facility]. P: DCP to continue to follow. Will see patient today to verify home plan, it is also noted that [facility] was ordered. Regina Nelson RN/Cad Application Support Specialist
[2023-08-15] MEDS: SODIUM CHLORIDE 0.9% IV (09:14)
[2023-08-15] MEDS: MAGNESIUM CHLORIDE 64 MG TABLET 128 MG PO (09:14)
[2023-08-15] MEDS: DAPTOMYCIN IV (09:14)
[2023-08-15] MEDS: ACETAMINOPHEN 325 MG TABLET 650 MG PO (09:16)
--- NOTE | 2023-08-15 10:21 | PM.DS.1 ---
History of Present Illness History of Present Illness Date Patient Seen: 08/14/23 Time Patient Seen: 10:28 Chief complaint: L leg infection hardware/ place picc line Narrative: Kaitlyn Ashley is a 67yo F with PMH of chronic heavy tobacco use, bilateral hip replacements and recent L distal tib-fib fracture s/p hardware placement in Jun 2023 who is presented from [facility] ID clinic as a direct admit for IV antibiotics given concern for hardware infection. Patient fell in her kitchen about a month ago and sustained a distal tib-fib fracture. Underwent surgical repair with plates and screws with Dr. Tristan but the post-op wound dehisced and never healed. Began seeing wound care with Dr. Arroyo and was then sent to Dr. Paez at [facility] for concern for hardware infection. Dr. Paez noted increased drainage at the wound site and visibly exposed hardware. She was directly admitted for IV abx. Patient notes no significant pain at the site. Denies fever/chills, NV, CP, SOB, abd pain or diarrhea. Discharge Providers Provider Date of admission: 08/14/23 08:00 Discharge Date: 08/15/23 Consults: 08/14/23 09:09 Consult to [facility] [place] Front Services Agent Routine Comment: 08/14/23 11:35 Consult to TECHNICAL MAINTENANCE SPECIALIST - Front Services Agent Routine Comment: help with pricing out wound vac Discharge provider: Oswaldo Oscar DO Summary Hospital Course Discharge Diagnosis: # left distal tib-fib hardware infection -plan for direct admit for IV dapto per [facility] ID, PICC line once BC neg at 48hrs, then dc for outpatient washout/hardware removal with Dr. Tristan on 08/18 -dapto 8mg/kg q24hr x6 weeks, will f/up with ID clinic -CK normal -blood cultures neg at 48 hours -wound culture with heavy gram neg cocci -PICC placed and IV home infusions will continue abx at home # heavy tobacco use -nicotine patch Hospital Course: Admitted for exposed L ankle hardware and concern for infection. Started on IV dapto and wound and blood cultures drawn. PICC placed and IV home infusions arranged for 6 weeks. Patient will f/up with ID in clinic. Dr. Tristan will take back to OR on 08/18 as outpatient to remove hardware. Wound vac too be placed in OR, and TECHNICAL MAINTENANCE SPECIALIST started paperwork for wound vac approval. Exam Vital Signs (past 8 hours): - 08/15/23 08:00 Temperature 97.2 F L Pulse Rate 61 Respiratory Rate 16 Blood Pressure 151/51 H Pulse Oximetry 98 Oxygen Flow Rate 0 Oxygen Delivery Method Room Air Oxygen Flow Rate 0 Narrative Exam Narrative: GEN: no acute distress HEENT: moist mucous membranes, PERRL NECK: trachea midline, no JVD CV: regular rate and rhythm, no murmurs PULM: clear bilaterally ABD: soft, nontender, nondistended, no organomegaly EXT: Left lateral malleolus wound with exposed plate and screws, no purulent drainage NEURO: awake, alert, oriented, no focal deficits Objective Imaging L lateral ankle: My impression: Labs 08/14/23 11:35 08/14/23 11:35 Labs: Laboratory Results - last 24 hr 08/14/23 08/15/23 11:35 05:25 WBC 7.5 RBC 3.98 L Hgb 13.0 Hct 38.1 MCV 95.7 MCH 32.7 MCHC 34.2 RDW 13.4 Plt Count 319 Neut % (Auto) Not Reportable Lymph % (Auto) Not Reportable Butts % (Auto) Not Reportable Eos % (Auto) Not Reportable Baso % (Auto) Not Reportable Lymph # (Auto) Not Reportable Butts # (Auto) Not Reportable Baso # (Auto) Not Reportable Total Counted 100 Seg Neutrophils % 71.0 H Lymphocytes % (Manual) 25.0 Monocytes % (Manual) 2.0 Eosinophils % (Manual) 1.0 L Metamyelocytes % 1.0 H Neutrophils # (Manual) 5325 RBC Morphology Normal morphology Sodium 137 Potassium 3.8 Chloride 104 Carbon Dioxide 27 BUN 17 Creatinine 0.67 Estimated GFR > 60 BUN/Creatinine Ratio 25.4 H Glucose 113 H Calcium 10.1 Magnesium 1.1 L 1.6 Total Bilirubin 0.9 AST 33 ALT 25 Alkaline Phosphatase 118 Total Creatine Kinase 28 L Total Protein 7.8 Albumin 4.4 Globulin 3.4 Albumin/Globulin Ratio 1.3 PFSH Medical History Borderline diabetes Cataract (lens) fragments in eye following cataract surgery, bilateral History of sinusitis Hypertension Postmenopausal Healthy adult Surgical History History of total hip arthroplasty Social History household members: none lives independently: Yes Smoking Status: Current every day smoker alcohol intake: current substance use type: does not use Discharge Plan Discharge Plan Provider Discharge Comment: You will now be on IV antibiotics at home daily for up to [address] Tristan wants to take you back to surgery on 08/18 to remove the hardware in your ankle. You will likely have a wound vac after that. Discharge orders & Medications Discharge Orders: Discharge (Order); Ordered 08/15/23 Ordered By: Oswaldo Oscar Prescriptions: Continued acetaminophen 325 mg Tablet 650 mg PO Q6H PRN (Reason: Fever/Mild Pain (1-3)) Qty: 240 0RF ibuprofen 600 mg Tablet 600 mg PO Q6HR PRN (Reason: Fever/Mild Pain (1-3)) Qty: 90 0RF oxycodone 5 mg tablet 5 mg PO Q4-6H PRN (Reason: pain) Qty: 60 0RF Discontinued doxycycline monohydrate 100 mg tablet 100 mg PO BID Follow up/Referrals: Terri Paez MD [Non-Staff] - 2 Weeks Visit Report/Discharge Packet Stand Alone Forms: Patient Portal/API, Stroke Signs & Symptoms Quality VTE Deep Vein Thrombosis/Pulmonary Embolism Present on Admission: No
--- NOTE | 2023-08-16 10:55 | CM.DPC ---
DCP Cont: Patient had called, she was discharged home yesterday. She was concerned, her insurance is not covering the cost of the Daptomycin, would be about $400.00 a week. She stated, I don't think I can afford it. Let her know that this DC Cast Iron Dipper could call Jose at [employer] to get additional information regarding her insurance. Patient was hopeful that this DC Cast Iron Dipper could call her [employer]. Let her know that this DC Cast Iron Dipper would call Jose first, since they run these referrals through intake to her insurance. Spoke to Jose, he indicated that unfortunately, patient needs to meet her deductable, and is responsible for 70%. He did indicate that they can work out a payment plan with patient. They will still plan to meet patient at her home with 5 doses of the ABO to start with, since she is coming back on Wed for her surgery. Did update Dr. Oscar about the cost of the medication, he will discuss with Dr. Leblanc to see if there may be a more cost effective medication, such as Cefazolin, for the patient. P: Patient will be back for surgery Wed, if she calls back, will update her, that there may be a consideration for change of medication after hospitalist discusses with Dr. Leblanc. Regina Nelson RN/Entry Level Account Manager
--- NOTE | 2023-08-20 06:52 | PC.NURSE ---
Late Entry: Magnesium infusion initiated 08/14 at 1334 complete at 1735.
== END 2023-08-15 11:30 | disposition home or self-care (01) ==
PROVIDERS: Admitting Provider Student in an Organized Health Care Education/Training Program; Referring Provider Student in an Organized Health Care Education/Training Program; Visit Provider Student in an Organized Health Care Education/Training Program
DX: T84.625A Infection and inflammatory reaction due to internal fixation device of left fibula, initial encounter (principal); T85.848A Pain due to other internal prosthetic devices, implants and grafts, initial encounter; T85.9XXA Unspecified complication of internal prosthetic device, implant and graft, initial encounter; Z96.7 Presence of other bone and tendon implants; F17.210 Nicotine dependence, cigarettes, uncomplicated
CPT/HCPCS: 36415; 36569; 71045; 80053; 82550; 83735; 85007; 85025; 87040; 87070; 87075; 87077; 87205; 96365; 96366; 96367; G0378; G0379; J0878; J3475

== ENCOUNTER 2023-08-18 13:02 | Day surgery (SDC) | payer OTHER, SELFPAY ==
[2023-08-17 12:39] VITALS: BMI 23.0
[2023-08-18 13:20] VITALS: BP 131/81; PULSE 83; RESP 16; TEMP 36.1; O2SAT 98; BMI 23.7
[2023-08-18] MEDS: LACTATED RINGERS 1,000 ML 42 ML IV (13:46)
[2023-08-18] MEDS: ACETAMINOPHEN 325 MG TABLET 650 MG PO (13:58)
--- NOTE | 2023-08-18 15:08 | P.HP_ITS ---
History of Present Illness History of Present Illness Date Patient Seen: 08/18/23 Time Patient Seen: 15:08 Chief complaint: I&D w/removal of hardware & place wound VAC [facility] Medical History (Updated 07/06/23 @ 10:27 by Minh Soliman MD) Borderline diabetes Cataract (lens) fragments in eye following cataract surgery, bilateral History of sinusitis Hypertension Postmenopausal Healthy adult Surgical History (Updated 08/17/23 @ 12:44 by Chelsey Hollins RN) History of total left hip replacement (11/20/20) History of open reduction and internal fixation (ORIF) procedure (07/07/23) History of total hip arthroplasty Social History household members: none lives independently: Yes Smoking Status: Former smoker alcohol intake: current substance use type: does not use Meds Home Medications and Allergies Home Medications Medication Instructions Recorded Confirmed Type acetaminophen 325 mg tablet 650 mg (2 x 325 mg) PO Q6H PRN 07/08/23 08/18/23 Rx Fever/Mild Pain (1-3) #240 tabs ibuprofen 600 mg tablet 600 mg PO Q6HR PRN Fever/Mild Pain 07/08/23 08/18/23 Rx (1-3) #90 tabs oxycodone 5 mg tablet 5 mg PO Q4-6H PRN pain #60 tabs 07/08/23 08/18/23 Rx Allergies Allergy/AdvReac Type Severity Reaction Status Date / Time No Known Drug Allergies Allergy Verified 08/18/23 13:50 Exam Vital Signs (past 8 hours): - 08/18/23 13:20 Temperature 97 F L Pulse Rate 83 Respiratory Rate 16 Blood Pressure 131/81 Pulse Oximetry 98 Oxygen Delivery Method Room Air Oxygen Delivery Method Room Air
--- NOTE | 2023-08-18 15:09 | PM.PREOP ---
Pre-operative Note Interval Note History & Physical reviewed/Exam performed by Physician: Yes Changes to H&P: No
--- NOTE | 2023-08-18 15:37 | SUR.OPER ---
Supine on padded OR bed, head on pillow, arms secured on padded arm boards at <90 degrees abduction, legs uncrossed, safety belt at thigh, Right leg taped with blanket over leg. Left leg in control of the Surgeon.
[2023-08-18 15:45] VITALS: BP 143/89; PULSE 72; RESP 14; TEMP 36.3; O2SAT 100
--- NOTE | 2023-08-18 15:56 | P.OP_ITS ---
Operative Date/Time/Diagnoses Date of procedure: 08/18/23 Time of procedure: 15:56 Pre-op diagnosis: Left lower extremity wound dehiscence Post-op diagnosis: same Procedure & Clinicians Procedure: Irrigation debridement of skin, fat, muscle and bone and application of wound VAC for complex wound closure Same procedure as scheduled: Yes Indications: Left wound dehiscence Surgeon: Froyaln Tristan Click Yes if Unassisted: Yes Anesthesia Type: General Operative Notes Findings: 2-1/2 inches x 2 inches of wound dehiscence with exposed skin, fat, muscle, bone and hardware with healthy granulation tissue appearing to make secondary intention healing across the plate Closure Type: primary Specimen(s): none sent Prosthetic devices, grafts, tissues, transplants, or devices: None Estimated Blood Loss (mL): 5 Blood products transfused: none Tourniquet time (min): 0 Procedure in detail: The patient was met in the preoperative holding area. We would discussed previously that we would be planning on irrigation debridement for her wound dehiscence and application of wound VAC with potential removal of hardware. Risks and benefits of surgery were discussed again including the risk of infection, damage to internal structures, bleeding, nerve injury, instability, need for revision surgery, blood clots, anesthesia and . No guarantees were made regarding outcomes. Patient expressed understanding and accepted these risks and wished to go forward with surgery and consent was signed. Her left lower extremity was marked with my initials. She was brought back to the operating room and the left lower extremity was prepped and draped in the standard sterile fashion. She underwent light sedation with no intubation. Time-out was performed in my initials were again confirmed on the left lower extremity. I began by using a curette and a rongeur to debride necrotic skin, subcutaneous fat, muscle, down to bone and on the plate. Once we reached healthy bleeding tissue, the wound was thoroughly irrigated with 3 L of water. A wound VAC was then placed using a black sponge, single, 2 x 2-1/2 inches. Patient was woken and brought to the postop recovery unit without any complications. Complications: none Post-operative Condition: stable Disposition: PACU Plan for aftercare: Plan for wound VAC change every 3 days until full granulation tissue over the plate. She does not need sedation for future wound VAC changes and these can be performed by her or her ocean lifeguard specialist. She may continue to be weight- bearing as tolerated.
[2023-08-18 16:00] VITALS: BP 150/74; PULSE 72; RESP 20; O2SAT 100
[2023-08-18 16:15] VITALS: BP 146/72; PULSE 72; RESP 19; TEMP 36.3; O2SAT 100
== END 2023-08-18 16:15 | disposition home or self-care (01) ==
PROVIDERS: PCP Internal Medicine; Referring Provider Orthopaedic Surgery; Visit Provider Orthopaedic Surgery
PROC: (CPT 11043; principal; 2023-08-18 16:45)
DX: T81.32XA Disruption of internal operation (surgical) wound, not elsewhere classified, initial encounter (principal)
CPT/HCPCS: 11043; 97606; J1100; J2405; J2704; J3010

== ENCOUNTER → 2023-08-24 11:59 | Outpatient (ROUT) | payer OTHER, SELFPAY ==
[2023-08-14 08:26] VITALS: BMI 31.6
[2023-08-24 12:15] LABS: Add Manual Diff / Slide Review NO; Basophils Absolute Auto 100 /uL (0-100); Basophils Percent Auto 0.8 % (0-2); Eosinophils Absolute Auto 100 /uL (0-450); Eosinophils Percent Auto 1.8 % (2-4); Hematocrit 39.2 % (36-46); Hemoglobin 13.3 g/dL (12.0-16.0); Lymphocytes Absolute Auto 2200 /uL (1100-4500); Lymphocytes Percent Auto 26.8 % (25-40); Mean Corpuscular Hemoglobin 32.6 PG (26-34); Mean Corpuscular Volume 95.7 fL (80-100); Monocytes Absolute Auto 800 /uL (0-900); Monocytes Percent Auto 9.7 % (3-14); Neutrophils Absolute Auto 5000 /uL (1500-7000); Neutrophils Percent Auto 60.9 % (50-75); Platelet Count 413 X10^3/uL (150-400); Red Cell Distribution Width 12.9 % (11.6-14.8); White Blood Cell Count 8.2 X10^3/uL (4.5-11.0)
[2023-08-24 12:26] LABS: Alanine Aminotransferase 48 IU/L (<35); Albumin 4.6 g/dL (3.5-5.0); Albumin Globulin Ratio 1.2 (1.0-2.8); Alkaline Phosphatase 154 U/L (38-126); Aspartate Aminotransferase 46 IU/L (14-36); BUN Creatinine Ratio 25.4 (6-22); Bilirubin Total 0.6 mg/dL (0.2-1.3); Blood Urea Nitrogen 17 mg/dL (7-17); Calcium 10.6 mg/dL (8.4-10.2); Carbon Dioxide 27 mmol/L (22-32); Chloride 104 mmol/L (98-107); Creatine Kinase 21 U/L (30-135); Estimated Glomerular Filt Rate > 60 mL/min (>60); Globulin 3.7 g/dL (1.7-4.1); Glucose 108 mg/dL (80-110); HEMOLYSIS < 15 (0-50); Potassium 4.3 mmol/L (3.4-5.1); Sodium 139 mmol/L (137-145); Total Protein 8.3 g/dL (6.3-8.2)
== END ==
PROVIDERS: PCP Internal Medicine; Visit Provider Internal Medicine Infectious Disease
DX: L08.89 Other specified local infections of the skin and subcutaneous tissue (principal); T81.49XA Infection following a procedure, other surgical site, initial encounter; Z79.2 Long term (current) use of antibiotics
CPT/HCPCS: 80053; 82550; 85025

== ENCOUNTER → 2023-08-25 13:42 | Outpatient (CLI) | payer OTHER, SELFPAY ==
[2023-08-14 08:26] VITALS: BMI 31.6
--- NOTE | 2023-08-25 | OV.WND_ITS ---
Progress Note Details Patient Name: Kaitlyn Ashley Patient Number: [id number] Clinician: Sara Yu RN Patient Date of : 1955 Physician / Car Ferrier: Andrew Arroyo Patient SUBJECTIVE Chief Complaint This information was obtained from the Patient. Wound on Left ankle and has a wound VAC. Allergies No Known Allergies HPI This information was obtained from the Patient. The following HPI elements were documented for the patient's wound: Location: L ankle Duration: 07/23/23 Context: surgery The patient is a 67 year old female with neuropathy, HTN, and current cigarette use who returns today for follow up of a surgical wound on the lateral left ankle that occurred following ORIF of left tib-fib fracture on July 07, 2023. The patient underwent irrigation and debridement of left ankle wound by Dr. Rubalcava and had a wound VAC placed on August 18 2023. The hardware was left in place. The patient was seen by Dr. Leblanc and started on IV Dalbavancin. The patient is receiving dressing changes by home health nursing 3 times a week. She is ambulating with the use of an Aircast. The patient reports a good appetite and is taking protein supplements. She denies any other recent changes in her overall health. She stops smoking cigarettes 3 weeks ago. PHIL on left 1.15, right 1.1 . Past history is remarkable for amputation of left 2nd toe for treatment of osteomyelitis in 2017. 08/18 LABS: 08/24/23: WBC 8.2, hemoglobin 13.3, HCT 39.2 electrolytes unremarkable, GFR greater than 60 07/06/23: WBC 12.2, hemoglobin 14.4, HCT 41.7, electrolytes unremarkable, GFR greater than 60, mild elevation of LFTs, blood alcohol 295 Medical History This information was obtained from the Patient. 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 Yes? Complete all questions.: No Kaitlyn Ashley [id number] 1955 Surgical History This information was obtained from the Patient. Patient has a surgical history of: Bilateral hip replacement- Abdominoplasty- Knee tendon transplant- Left second toe amputation- ORIF of Left distal fibula and tibia- OBJECTIVE Vitals Height/Length: 72 in (182.88 cm), Weight: 175.8 lbs (79.91 kgs), BMI: 23.8, Temperature: 98.2 ?F (36.78 ?C), Pulse: 62 bpm, Respiratory Rate: 16 breaths/min, Blood Pressure: 119/76 mmHg, Pulse Oximetry: 98 %. Physical Exam Constitutional: Vital signs reviewed and noted. Well developed, well nourished, and in no acute distress. Alert and oriented x3. Respiratory: Even respirations without use of accessory muscles. No intercoastal retractions noted. Even and non labored respiration. Integumentary (Hair, Skin): See wound assessment. Neurological: Sensation: Symmetric function by informal observation. Psychiatric: Orientation to time, place and person: Normal affect with normal thought pattern. Additional Information The patient's potential to heal is: fair. Wound Assessment(s) Wound #3 Left, Lateral Ankle is an acute Full Thickness Surgical Wound and has received a status of Not Healed. Initial wound encounter measurements are 4.8cm length x 2.8cm width x 0.8 cm depth, with an area of 13.44 sq cm and a volume of 10.752 cubic cm. Adipose is exposed. No tunneling has been noted. No sinus tract has been noted. No undermining has been noted. There is a Moderate amount of serosanguineous drainage noted which has no odor. The patient reports a wound pain of level 0/10. The wound margin is unattached Wound bed has No, granulation, Yes slough, Yes eschar, No epithelialization. The periwound skin exhibited edema and erythema. The temperature of the periwound skin is Warm. Local Pulse is Palpable. General Notes Hardware still present. Had 10cc of serosanguinous Additional Information PHIL/Vascular Completed?: PHIL 08/10/23 Results?: L: 1.15, R: 1.16 Kaitlyn Ashley [id number] 1955 ASSESSMENT Active Problems ICD-10 T81.31XA - Disruption of external operation (surgical) wound, not elsewhere classified, initial encounter (Encounter Diagnosis) Z72.0 - Tobacco use (Encounter Diagnosis) G57.83 - Other specified mononeuropathies of bilateral lower limbs (Encounter Diagnosis) T81.31XD - Disruption of external operation (surgical) wound, not elsewhere classified, subsequent encounter General Notes large open wound lateral left ankle with exposed plates and screws, improved the following factors have been identified that may affect wound healing: Devitalized tissue Biofilm Infection Cigarette use Exposed hardware Goals: remove devitalized tissue Remove and prevent biofilm Treat infection Stop smoking Plan: Debridement, continue negative pressure wound therapy, IV antibiotic therapy, protein supplementation, follow up in 1 week for a recheck. PROCEDURES Wound #3 Wound #3 (Surgical Wound) is located on the left, lateral ankle. A skin/subcutaneous tissue level surgical debridement with a total area debrided of 12.96 sq cm. was performed by Andrew Arroyo MD. Subcutaneous was removed along with devitalized tissue: biofilm, fibrin and slough. The following instrument(s) were used: curette. Pain control was achieved using EMLA lidocaine/prilocaine 2.5%/2.5%. A time out was conducted prior to the start of the procedure. A minimal amount of bleeding was controlled with pressure. The procedure was tolerated well with a pain level of 0 throughout and a pain level of 0 following the procedure. Post Debridement Measurements: 4.8cm length x 2.7cm width x 0.9cm depth; with an area of 12.96 sq cm and a volume of 11.664 cubic cm. Additional Information Muscle fascia or bone removed and sent to pathology?: No Negative Pressure Wound Therapy Application Performed for: Wound #3 Left, Lateral Ankle Type: Medela ??? Invia Concho Performed By: Sara Yu RN Coverage Size (sq cm): 13.44 Pressure Type: Constant Pressure Settin mmHG Sponge Type: Black Sponge Size: Dunia Kaitlyn Ashley Deejay [id number] 1955 Total number of sponges removed prior to the application: 1 Total number of sponges used for this application: 1 Date Initiated: 08/18/2023 Daily Hours of Therapy: 24 PLAN Wound Orders: Wound #3 Left, Lateral Ankle Anesthetic Topical Xylocaine to wound bed Hygiene Other order - Sponge bath until further notice from orthopedic. Cleanser Cleanse Wound with normal saline Other order - IN CLINIC used Dakins after debridement. Topical Treatments Other order - Dakin's soaks (dakin's mositened gauze) for 5 minutes, during dressing changes. Supply sent with patient. IN CLINIC Dressings Wound Vac - Adaptic or equvelant over hardware, then black foam cut to fit. Change Dressing - [facility]- please change dressing every Wednesday, and Wednesday. Wound Clinic will change on Wednesdays Off-Loading Other order - Use regular shoe Physician Review: Reviewed and evaluated labs. Discussed the Plan of Care @ bedside with - the patient Reviewed hospital records. I, as the physician, have reviewed the orders scribed by the center RN's and agree. Additional Orders: Dietary Increased protein Supplement with - 30 grams of protein in between meals. Follow-Up Appointments Return Appointment - One week. Other information: If you develop fever, chills, increased pain, drainage, redness or swelling please call our office. If after hours, respond to the ER. Should you experience any significant changes in your wound(s) or have any questions regarding your home care instructions please contact the wound center @ [phone]. If after hours, contact your primary care physician or go to the hospital emergency room. Scribing Attestation I attest, as the nurse, that I scribed these orders for the physician. Plan of Care: 01. ENSURE/ESTABLISH OPTIMAL BLOOD FLOW : - Complete lower extremity assessment - Perform non-invasive vascular testing (i.e. PHIL) and document findings. Consider repeating when wound healing <40% after 30 days of wound care. - PHIL done 08/10/23. 02. ASSESS FOR/TREAT INFECTION : - Evaluate for signs and symptoms of infection and document findings. - Obtain culture and sensitivity (CandS) or tissue culture when infection is suspected. (NOTE:) Consider repeating when wound healing <40% after 30 days of wound care. 03. DEBRIDE WEEKLY OR MORE OFTEN PRN : - Evaluate patient in center weekly to assess wound bed and margins for need for debridement. Kaitlyn Ashley [id number] 1955 - Debridement by any method to remove devitalized/necrotic tissue to promote healing and prevent further complications. Goal is to stimulate and/or maintain acute phase of wound healing by reducing bacterial burden and devitalized/non-viable tissue. 04. OPTIMIZE GLUCOSE CONTROL and NUTRITION : - Order/review pertinent labs to evaluate renal function, glucose control, and nutritional status. - Complete a nutrition risk assessment. 05. OFFLOADING PLAN : - Evaluate plan for offloading - Advise patient to offload the foot ulcer. (i.e. half shoe, surgical shoe, insert, custom shoe, felt and foam, cam walker, multipodus splint, total contact cast, bi-valve cast, posterior splint). - Assess tolerance and compliance of offloading. 06. OPTIMIZE HOST FACTORS: - Assess and review patient history for wound etiology, co-morbid conditions, medication regime, and smoking history. - Assess lifestyle factors such as smoking, alcohol/drug abuse, eating habits/malnutrition and activity level. - Educate and encourage smoking cessation. 07. DRESSING SELECTION : - Evaluate for dressing-related factors, such as availability, wear time, adaptability and use to better optimize wound healing and patient compliance. - Choose topical treatments and/or dressing based on wound type and appearance, periwound skin condition, wound size and depth, anatomic location, volume of exudate, edema in the lower extremities, and risk or presence of infection. 08. ADVANCED MODALITIES : - Set treatment goals according to patient and/or caregiver???s ability/ compliance. - Re-evaluate plan of care if no evidence of healing (40% in 4 weeks). 09. FALL PREVENTION : - Complete fall assessment. - Provide education materials/discuss prevention strategies as appropriate. 10. PAIN MANAGEMENT : - Reviewed, not applicable 11. MEASURABLE GOALS for Wound Healing and/or Hyperbaric Oxygen Therapy : - Decrease Wound Dimensions - Implement protocols to promote healing and impede further injury - Reduce risk for infection 12. DURATION/FREQUENCY of Wound Care Visits : - 1x weekly for 30 days Electronic Signature(s) Signed By: Date: Andrew Arroyo MD 08/26/2023 08:15:14 (PT) Entered By: Andrew Arroyo MD on 08/26/2023 08:14:44 (PT) Kaitlyn Ashley [id number] 1955
== END ==
LOC: WC 13:42
PROVIDERS: PCP Internal Medicine; Referring Provider Physician Assistant; Visit Provider Surgery
DX: T81.31XA Disruption of external operation (surgical) wound, not elsewhere classified, initial encounter (principal); S91.002A Unspecified open wound, left ankle, initial encounter; G57.83 Other specified mononeuropathies of bilateral lower limbs; Z72.0 Tobacco use
CPT/HCPCS: 11042; 97605; 99212

== ENCOUNTER → 2023-09-01 12:52 | Outpatient (CLI) | payer OTHER, MEDICAID, SELFPAY ==
[2023-08-14 08:26] VITALS: BMI 31.6
[2023-09-01 13:51] LABS: Add Manual Diff / Slide Review NO; Basophils Absolute Auto 100 /uL (0-100); Basophils Percent Auto 0.5 % (0-2); Eosinophils Absolute Auto 100 /uL (0-450); Eosinophils Percent Auto 0.8 % (2-4); Hematocrit 40.6 % (36-46); Hemoglobin 13.8 g/dL (12.0-16.0); Lymphocytes Absolute Auto 2600 /uL (1100-4500); Lymphocytes Percent Auto 23.7 % (25-40); Mean Corpuscular HGB Conc 33.9 % (30-36); Mean Corpuscular Hemoglobin 31.6 PG (26-34); Mean Corpuscular Volume 93.1 fL (80-100); Monocytes Absolute Auto 600 /uL (0-900); Monocytes Percent Auto 5.9 % (3-14); Neutrophils Absolute Auto 7600 /uL (1500-7000); Neutrophils Percent Auto 69.1 % (50-75); Platelet Count 475 X10^3/uL (150-400); Red Blood Cell Count 4.36 X10^6/uL (4.0-5.2); Red Cell Distribution Width 12.8 % (11.6-14.8); White Blood Cell Count 10.9 X10^3/uL (4.5-11.0)
[2023-09-01 14:16] LABS: Alanine Aminotransferase 42 IU/L (<35); Albumin 4.5 g/dL (3.5-5.0); Albumin Globulin Ratio 1.4 (1.0-2.8); Alkaline Phosphatase 157 U/L (38-126); Aspartate Aminotransferase 41 IU/L (14-36); BUN Creatinine Ratio 20.5 (6-22); Bilirubin Total 1.1 mg/dL (0.2-1.3); Blood Urea Nitrogen 16 mg/dL (7-17); C-Reactive Protein Quant 0.6 mg/dL (<1.0); Calcium 10.2 mg/dL (8.4-10.2); Carbon Dioxide 23 mmol/L (22-32); Chloride 103 mmol/L (98-107); Creatine Kinase 39 U/L (30-135); Estimated Glomerular Filt Rate > 60 mL/min (>60); Globulin 3.3 g/dL (1.7-4.1); Glucose 103 mg/dL (80-110); HEMOLYSIS < 15 (0-50); Potassium 4.5 mmol/L (3.4-5.1); Sodium 137 mmol/L (137-145); Total Protein 7.8 g/dL (6.3-8.2)
== END ==
PROVIDERS: PCP Internal Medicine; Referring Provider Internal Medicine Infectious Disease; Visit Provider Internal Medicine Infectious Disease
DX: M86.9 Osteomyelitis, unspecified (principal)
CPT/HCPCS: 36415; 80053; 82550; 85025; 86140

== ENCOUNTER → 2023-09-01 13:36 | Outpatient (CLI) | payer OTHER, MEDICAID, SELFPAY ==
[2023-08-14 08:26] VITALS: BMI 31.6
== END ==
PROVIDERS: PCP Internal Medicine; Referring Provider Physician Assistant; Visit Provider Surgery
DX: T81.31XA Disruption of external operation (surgical) wound, not elsewhere classified, initial encounter (principal); S91.002A Unspecified open wound, left ankle, initial encounter; Z72.0 Tobacco use; G57.83 Other specified mononeuropathies of bilateral lower limbs; I10 Essential (primary) hypertension; R60.0 Localized edema; L53.9 Erythematous condition, unspecified
CPT/HCPCS: 11042; 97605

== ENCOUNTER → 2023-09-15 10:29 | Outpatient (CLI) | payer OTHER, MEDICAID, SELFPAY | PROVIDERS: PCP Internal Medicine; Referring Provider Physician Assistant; Visit Provider Surgery | DX: G57.83 Other specified mononeuropathies of bilateral lower limbs (principal); T81.31XD Disruption of external operation (surgical) wound, not elsewhere classified, subsequent encounter; Z72.0 Tobacco use | CPT/HCPCS: 11042; 97605; 99212 ==

== ENCOUNTER → 2023-10-20 10:20 | Outpatient (CLI) | payer OTHER, MEDICAID, SELFPAY | LOC: WC 10:20 | PROVIDERS: PCP Internal Medicine; Referring Provider Physician Assistant; Visit Provider Surgery | DX: T81.89XA Other complications of procedures, not elsewhere classified, initial encounter (principal); S91.002A Unspecified open wound, left ankle, initial encounter; R60.0 Localized edema; L53.9 Erythematous condition, unspecified; I10 Essential (primary) hypertension; F17.210 Nicotine dependence, cigarettes, uncomplicated; G62.9 Polyneuropathy, unspecified | CPT/HCPCS: 11042; 97605; 99213 ==

== ENCOUNTER → 2023-11-03 11:12 | Outpatient (CLI) | payer OTHER, MEDICAID, SELFPAY ==
--- NOTE | 2023-11-03 | OV.WND_ITS ---
Progress Note Details Patient Name: Kaitlyn Ashley Patient Number: [id number] Clinician: Brynn Ferreira RN Patient Date of : 1955 Physician / Epidemiology Internship: [facility] Patient SUBJECTIVE Chief Complaint This information was obtained from the Patient. My left ankle wound and dressing change Allergies No Known Allergies HPI This information was obtained from the Patient. The following HPI elements were documented for the patient's wound: Location: L ankle Duration: 07/23/23 Context: surgical Associated Signs and Symptoms: none The patient is a 67 year old female with neuropathy, HTN, and current cigarette use who returns today for follow up of a surgical wound with exposed hardware on the lateral left ankle that occurred following ORIF of left tib-fib fracture on July 07, 2023. The patient underwent irrigation and debridement of left ankle wound by Dr. Rubalcava and had a wound VAC placed on August 18 2023. The hardware was left in place. The patient was seen by Dr. Paez and treated with IV Dalbavancin. The patient is not currently on any antibiotic therapy. The patient is receiving negative pressure wound therapy with collagen. She is ambulating with the use of an Aircast. The patient reports a good appetite and is taking protein supplements. She denies any other recent changes in her overall health. She has recently stopped smoking cigarettes. PHIL on left 1.15, right 1.1 . Past history is remarkable for amputation of left 2nd toe for treatment of osteomyelitis in 2017. On exam today there is good granulation tissue and the measurements are slightly improved however there is still an exposed hardware in the wound. The patient was seen by Dr. Tristan earlier today and he is apparently planning to place a skin substitute over the wound in the near future. The patient has a follow up with Dr. Paez tomorrow. LABS: 08/24/23: WBC 8.2, hemoglobin 13.3, HCT 39.2 electrolytes unremarkable, GFR greater than 60 07/06/23: WBC 12.2, hemoglobin 14.4, HCT 41.7, electrolytes unremarkable, GFR greater than 60, mild elevation of LFTs, blood alcohol 29 Medical History This information was obtained from the Patient. 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 Yes? Complete all questions.: No Surgical History This information was obtained from the Patient. Patient has a surgical history of: Bilateral hip replacement- Abdominoplasty- Knee tendon transplant- Left second toe amputation- ORIF of Left distal fibula and tibia- OBJECTIVE Vitals Height/Length: 72 in (182.88 cm), Weight: 181.7 lbs (82.59 kgs), BMI: 24.6, Temperature: 99.7 ?F (37.61 ?C), Pulse: 92 bpm, Respiratory Rate: 16 breaths/min, Blood Pressure: 178/91 mmHg, Pulse Oximetry: 99 %. Physical Exam Constitutional: Vital signs reviewed and noted. Well developed, well nourished, and in no acute distress. Alert and oriented x3. Respiratory: Even respirations without use of accessory muscles. No intercoastal retractions noted. Even and non labored respiration. Integumentary (Hair, Skin): See wound assessment. Neurological: decreased lower extremity sensation. Psychiatric: Orientation to time, place and person: Normal affect with normal thought pattern. Additional Information The patient's potential to heal is: fair. Wound Assessment(s) Wound #3 Left, Lateral Ankle is a chronic Full Thickness Surgical Wound and has received a status of Not Healed. Initial wound encounter measurements are 3.8cm length x 2.1cm width x 0.4 cm depth, with an area of 7.98 sq cm and a volume of 3.192 cubic cm. Adipose is exposed. No tunneling has been noted. No sinus tract has been noted. No undermining has been noted. There is a Moderate amount of serosanguineous drainage noted which has no odor. The patient reports a wound pain of level 0/10. The wound margin is attached Wound bed has Yes, bright red, firm, granulation, Yes slough, No eschar, Yes epithelialization. The periwound skin exhibited edema and erythema. The temperature of the periwound skin is Warm. Local Pulse is Palpable. General Notes Pin exposed. Additional Information Other devitalized tissue present: biofilm Kaitlyn Ashley [id number] 1955 Limited to breakdown of skin: No PHIL/Vascular Completed?: PHIL 08/10/23 Results?: L: 1.15, R: 1.16 ASSESSMENT Active Problems ICD-10 T81.31XA - Disruption of external operation (surgical) wound, not elsewhere classified, initial encounter (Encounter Diagnosis) Z72.0 - Tobacco use (Encounter Diagnosis) G57.83 - Other specified mononeuropathies of bilateral lower limbs (Encounter Diagnosis) T81.31XD - Disruption of external operation (surgical) wound, not elsewhere classified, subsequent encounter General Notes large open wound lateral left ankle with good granulation tissue and exposed hardware, measurements slightly improved the following factors have been identified that may affect wound healing: Devitalized tissue Biofilm Infection Cigarette use Exposed hardware Goals: remove devitalized tissue Remove and prevent biofilm Treat infection Stop smoking Plan: Debridement, continue negative pressure wound therapy with collagen, protein supplementation, follow up in 1 week for a recheck. PROCEDURES Wound #3 Wound #3 (Surgical Wound) is located on the left, lateral ankle. A skin/subcutaneous tissue level surgical debridement with a total area debrided of 8.36 sq cm. was performed by Andrew Arroyo MD. Subcutaneous was removed along with devitalized tissue: biofilm, exudate and slough. The following instrument(s) were used: curette. Pain control was achieved using 4% Lido. A time out was conducted prior to the start of the procedure. A moderate amount of bleeding was controlled with pressure. The procedure was tolerated well with a pain level of 0 throughout and a pain level of 0 following the procedure. Post Debridement Measurements: 3.8cm length x 2.2cm width x 0.4cm depth; with an area of 8.36 sq cm and a volume of 3.344 cubic cm. Additional Information Muscle fascia or bone removed and sent to pathology?: No Negative Pressure Wound Therapy Maintenance Performed for: Wound #3 Left, Lateral Ankle Kaitlyn Ashley [id number] 1955 Performed By: Brynn Ferreira RN Type: Medela ??? Aure Singer Coverage Size (sq cm): 7.98 Pressure Type: Constant Pressure Settin mmHG Sponge Type: Black Sponge Size: Medium Total number of sponges removed prior to the application: 1 Total number of sponges used for this application: 1 Date Initiated: 08/18/2023 Daily Hours of Therapy: 24 Dressing Change: Yes Canister Change: No Canister Exudate Volume (cc): 25 Days on NPWT: 78 PLAN Wound Orders: Wound #3 Left, Lateral Ankle Anesthetic Topical Xylocaine to wound bed Hygiene Other order - Sponge bath until further notice from orthopedic. Cleanser Cleanse Wound with normal saline Topical Treatments Other order - Dakin's soaks (dakin's mositened gauze) for 5 minutes, during dressing changes. Supply sent with patient. IN CLINIC Dressings Primary dressing - Collagen to wound base. Wound Vac - Black foam cut to fit. Negative Pressure Wound Therapy - Medela Negative Pressure Wound Vac, Continuous 125mmHg. Change Dressing - [facility]- please change dressing twice weekly until patient returns to clinic. Off-Loading Other order - Use regular shoe. Physician Review: Reviewed and evaluated labs. Discussed the Plan of Care @ bedside with - the patient Reviewed hospital records. I, as the physician, have reviewed the orders scribed by the center RN's and agree. Additional Orders: Dietary Increased protein Supplement with - 30 grams of protein in between meals. Follow-Up Appointments Return Appointment - Two weeks. Other information: If you develop fever, chills, increased pain, drainage, redness or swelling please call our office. If after hours, respond to the ER. Should you experience any significant changes in your wound(s) or have any questions regarding your home care instructions please contact the wound center @ [phone]. If after hours, contact your primary care physician or go to the hospital emergency room. Scribing Attestation I attest, as the nurse, that I scribed these orders for the physician. Plan of Care: Kaitlyn Ashley [id number] 1955 01. ENSURE/ESTABLISH OPTIMAL BLOOD FLOW : - Complete lower extremity assessment - Perform non-invasive vascular testing (i.e. PHIL) and document findings. Consider repeating when wound healing <40% after 30 days of wound care. - PHIL done 08/10/23. 02. ASSESS FOR/TREAT INFECTION : - Evaluate for signs and symptoms of infection and document findings. - Obtain culture and sensitivity (CandS) or tissue culture when infection is suspected. (NOTE:) Consider repeating when wound healing <40% after 30 days of wound care. 03. DEBRIDE WEEKLY OR MORE OFTEN PRN : - Evaluate patient in center weekly to assess wound bed and margins for need for debridement. - Debridement by any method to remove devitalized/necrotic tissue to promote healing and prevent further complications. Goal is to stimulate and/or maintain acute phase of wound healing by reducing bacterial burden and devitalized/non-viable tissue. 04. OPTIMIZE GLUCOSE CONTROL and NUTRITION : - Order/review pertinent labs to evaluate renal function, glucose control, and nutritional status. - Complete a nutrition risk assessment. 05. OFFLOADING PLAN : - Evaluate plan for offloading - Advise patient to offload the foot ulcer. (i.e. half shoe, surgical shoe, insert, custom shoe, felt and foam, cam walker, multipodus splint, total contact cast, bi-valve cast, posterior splint). - Assess tolerance and compliance of offloading. 06. OPTIMIZE HOST FACTORS: - Assess and review patient history for wound etiology, co-morbid conditions, medication regime, and smoking history. - Assess lifestyle factors such as smoking, alcohol/drug abuse, eating habits/malnutrition and activity level. - Educate and encourage smoking cessation. 07. DRESSING SELECTION : - Evaluate for dressing-related factors, such as availability, wear time, adaptability and use to better optimize wound healing and patient compliance. - Choose topical treatments and/or dressing based on wound type and appearance, periwound skin condition, wound size and depth, anatomic location, volume of exudate, edema in the lower extremities, and risk or presence of infection. 08. ADVANCED MODALITIES : - Set treatment goals according to patient and/or caregiver???s ability/ compliance. - Re-evaluate plan of care if no evidence of healing (40% in 4 weeks). 09. FALL PREVENTION : - Complete fall assessment. - Provide education materials/discuss prevention strategies as appropriate. 10. PAIN MANAGEMENT : - Reviewed, not applicable 11. MEASURABLE GOALS for Wound Healing and/or Hyperbaric Oxygen Therapy : - Decrease Wound Dimensions - Implement protocols to promote healing and impede further injury - Reduce risk for infection 12. DURATION/FREQUENCY of Wound Care Visits : - 2x monthly for next 30 days Electronic Signature(s) Signed By: Date: Kaitlyn Ashley [id number] 1955 Andrew Arroyo MD 11/04/2023 08:34:58 (PT) Entered By: Andrew Arroyo MD on 11/03/2023 11:57:16 (PT) Kaitlyn Ashley [id number] 1955
== END ==
LOC: WC 11:13
PROVIDERS: PCP Internal Medicine; Referring Provider Physician Assistant; Visit Provider Surgery
DX: T81.89XA Other complications of procedures, not elsewhere classified, initial encounter (principal); S91.002A Unspecified open wound, left ankle, initial encounter; L53.9 Erythematous condition, unspecified; R60.0 Localized edema; I10 Essential (primary) hypertension; F17.210 Nicotine dependence, cigarettes, uncomplicated; L98.8 Other specified disorders of the skin and subcutaneous tissue
CPT/HCPCS: 11042; 97605

== ENCOUNTER → 2023-11-17 15:24 | Outpatient (CLI) | payer OTHER, MEDICAID, SELFPAY | LOC: WC 15:25 | PROVIDERS: PCP Internal Medicine; Referring Provider Physician Assistant; Visit Provider Surgery | DX: T81.89XA Other complications of procedures, not elsewhere classified, initial encounter (principal); S91.002A Unspecified open wound, left ankle, initial encounter; L98.8 Other specified disorders of the skin and subcutaneous tissue; R60.0 Localized edema; I10 Essential (primary) hypertension; G62.9 Polyneuropathy, unspecified; F17.210 Nicotine dependence, cigarettes, uncomplicated | CPT/HCPCS: 11042; 97605; 99213 ==

== ENCOUNTER → 2023-11-30 10:10 | Outpatient (CLI) | payer OTHER, MEDICAID, SELFPAY ==
[2023-11-30 10:54] LABS: Add Manual Diff / Slide Review NO; Basophils Absolute Auto 0 /uL (0-100); Basophils Percent Auto 0.5 % (0-2); Eosinophils Absolute Auto 100 /uL (0-450); Eosinophils Percent Auto 0.9 % (2-4); Hemoglobin 14.7 g/dL (12.0-16.0); Lymphocytes Absolute Auto 1600 /uL (1100-4500); Lymphocytes Percent Auto 23.1 % (25-40); Mean Corpuscular HGB Conc 34.2 % (30-36); Mean Corpuscular Volume 96.6 fL (80-100); Monocytes Absolute Auto 600 /uL (0-900); Monocytes Percent Auto 8.4 % (3-14); Neutrophils Absolute Auto 4600 /uL (1500-7000); Neutrophils Percent Auto 67.1 % (50-75); Platelet Count 286 X10^3/uL (150-400); Red Blood Cell Count 4.45 X10^6/uL (4.0-5.2); Red Cell Distribution Width 13.6 % (11.6-14.8); White Blood Cell Count 6.9 X10^3/uL (4.5-11.0)
[2023-11-30 11:30] LABS: Alanine Aminotransferase 38 IU/L (<35); Albumin 4.6 g/dL (3.5-5.0); Albumin Globulin Ratio 1.4 (1.0-2.8); Alkaline Phosphatase 128 U/L (38-126); Aspartate Aminotransferase 46 IU/L (14-36); Bilirubin Unconjugated 0.6 mg/dL (0.0-1.1); C-Reactive Protein Quant 0.9 mg/dL (<1.0); Globulin 3.4 g/dL (1.7-4.1); HEMOLYSIS < 15 (0-50)
== END ==
PROVIDERS: PCP Internal Medicine; Referring Provider Internal Medicine Infectious Disease; Visit Provider Internal Medicine Infectious Disease
DX: M86.9 Osteomyelitis, unspecified (principal)
CPT/HCPCS: 36415; 80076; 85025; 86140

== ENCOUNTER 2023-12-09 08:14 | Day surgery (SDC) | payer OTHER, MEDICAID, SELFPAY ==
[2023-12-06 15:07] VITALS: BMI 23.0
[2023-12-09 08:48] VITALS: BMI 25.0
[2023-12-09 08:58] VITALS: BP 160/77; PULSE 78; RESP 16; TEMP 36.6; O2SAT 98
[2023-12-09] MEDS: LACTATED RINGERS 1,000 ML 42 ML IV (09:12)
--- NOTE | 2023-12-09 10:16 | PM.HP.1 ---
History of Present Illness History of Present Illness Date Patient Seen: 12/09/23 Time Patient Seen: 10:16 Chief complaint: Removal of hardware Narrative: Kaitlyn is a pleasant 68-year-old female has chronic wound healing of her left lower extremity after a distal tibia and fibula fracture ORIF. As previously discussed clinic we will plan on removal of hardware and placement of biologic dressing today. REPLACED BY [facility] Medical History (Updated 12/06/23 @ 15:15 by Chelsey Hollins RN) HLD (hyperlipidemia) History of MRSA infection Borderline diabetes Cataract (lens) fragments in eye following cataract surgery, bilateral History of sinusitis Hypertension Postmenopausal Healthy adult Surgical History (Updated 12/06/23 @ 15:15 by Chelsey Hollins RN) History of amputation History of surgery (08/18/23) History of total left hip replacement (11/20/20) History of open reduction and internal fixation (ORIF) procedure (07/07/23) History of total hip arthroplasty Social History household members: none lives independently: Yes Smoking Status: Former smoker alcohol intake: current substance use type: does not use Meds Home Medications and Allergies Home Medications Medication Instructions Recorded Confirmed Type acetaminophen 325 mg tablet 650 mg (2 x 325 mg) PO Q6H PRN 07/08/23 12/09/23 Rx Fever/Mild Pain (1-3) #240 tabs doxycycline monohydrate 100 mg 100 mg PO BID 12/08/23 12/09/23 History tablet losartan 50 mg tablet 50 mg PO DAILY 12/08/23 12/09/23 History Allergies Allergy/AdvReac Type Severity Reaction Status Date / Time No Known Drug Allergies Allergy Verified 12/09/23 08:48 Review of Systems Review of Systems ROS: Yes All systems reviewed with the patient and are negative except as otherwise documented Exam Vital Signs (past 8 hours): - 12/09/23 08:58 Temperature 98 F Pulse Rate 78 Respiratory Rate 16 Blood Pressure 160/77 H Pulse Oximetry 98 Oxygen Delivery Method Room Air Oxygen Delivery Method Room Air Narrative Exam Narrative: HEENT: Head atraumatic eyes anicteric moist mucous membranes Cardiovascular: Palpable peripheral pulses extremities are warm and well perfused Respiratory: Breathing comfortably on room air Psychiatric: Appropriate mood and affect Neuro: No acute deficits Musculoskeletal: 2 x 2 cm area of thick granulation tissue over the left lower extremity. Assessment & Plan Assessment & Plan narrative: Assessment: 68 year old female delayed healing of a wound dehiscence Plan: Plan for removal of hardware left fibula and placement of biologic dressing
[2023-12-09] MEDS: CEFAZOLIN 2 GM/100 ML PREMIX 100 ML IV (10:46)
--- NOTE | 2023-12-09 10:46 | SUR.OPER ---
Supine on padded OR bed, head on pillow, arms secured on padded arm boards at <90 degrees abduction, legs uncrossed, safety belt at thigh, tape over blanket over lower legs.
[2023-12-09] MEDS: BUPIVACAINE 0.25% (PF) 30 ML, EPINEPHrine 0.15 MG INJ (11:10)
[2023-12-09 12:03] VITALS: BP 124/73; PULSE 93; RESP 12; TEMP 36.6; O2SAT 96
[2023-12-09 12:08] VITALS: BP 125/75; PULSE 90; RESP 12; TEMP 36.6; O2SAT 97
[2023-12-09 12:17] VITALS: BP 131/83; PULSE 94; RESP 15; TEMP 36.6; O2SAT 96
[2023-12-09 12:34] VITALS: BP 149/75; PULSE 73; RESP 17; TEMP 36.4; O2SAT 95
--- NOTE | 2023-12-09 18:37 | PM.OP.1 ---
Operative Date/Time/Diagnoses Date of procedure: 12/09/23 Time of procedure: 18:37 Pre-op diagnosis: Left delayed wound healing and wound dehiscence, retained hardware Post-op diagnosis: same Procedure & Clinicians Procedure: 1. Removal of deep implant () 2. Preparation of site for graft () 3. Secondary closure of wound dehiscence (75697) 4. Application of biologic dressing (61027) Same procedure as scheduled: Yes Indications: Kaitlyn is a pleasant 68-year-old female who I did a previous distal tibia and fibula fracture ORIF on. She recovered well however has had chronic wound dehiscence of her fibula ORIF site. She still has exposed hardware. Has been doing wound care treatment for months now. We discussed performing removal of hardware, debridement of the bone, secondary closure of the wound dehiscence, and application of a biologic dressing. Risks and benefits of surgery were discussed again including the risk of infection, damage to internal structures, bleeding, nerve injury, instability, need for revision surgery, blood clots, anesthesia and . No guarantees were made regarding outcomes. Patient expressed understanding and accepted these risks and wished to go forward with surgery and consent was signed. Surgeon: Froylan Tristan Home Care Attendant: Carla Richmond Anesthesia Type: General Operative Notes Findings: 2 x 4 cm area of wound dehiscence with exposed hardware. Closure Type: non-primary Specimen(s): none sent Prosthetic devices, grafts, tissues, transplants, or devices: Stravix biologic dressing (lyopreserved umbilical tissue) 2 x 4 cm Estimated Blood Loss (mL): 5 Blood products transfused: none Procedure in detail: I met the patient in the preoperative holding area. Her left lower extremity was examined and marked with my initials. We again went over risks and she wished to go forward with surgery. She was brought back to the operating room and placed supine on the operating table. She underwent smooth induction of anesthesia. A non sterile tourniquet was placed on the upper thigh but was not inflated. The left lower extremity was then prepped and draped in the standard sterile fashion. A time-out was performed and antibiotics were given. I began with a percutaneous incision to remove the locking screws distally. The dehisced wound was extended slightly proximally in order to allow for better closure and to reach 2 of the screws proximally. Once the screws were all removed, the plate was then taken out through my proximal incision. Using a curette, the old screw holes were then debrided. Turning my attention to the wound dehiscence, the wound was 1st debrided prominent skin, subcutaneous fat down to bone. Secondary closure of the wound was then on the proximal and distal edges of the wound with nylon sutures approximating the wound using my previous incision to mobilize the tissue. The chronic granulated ulcerated part of the wound was then prepped for the graft using a curette and 1 L of irrigation. A 2 x 4 cm biologic graft was then selected and fenestrated on the back table. It was then placed on the wound and sutured into place with 2-0 chromic. A Adaptic and compression dressing was then placed over the wound. She was then woken from anesthesia without complications and returned to the postoperative recovery unit. Assisting participation: This operation could not have been safely performed (without compromising the technical results or length of the procedure) without the assistance of a skilled surgical garment assembly supervisor. The surgical garment assembly supervisor was medically necessary for proper positioning, retraction and manipulation of instruments, proper exposure, graft prep, and manipulation of tissue. Complications: none Post-operative Condition: stable Disposition: PACU Plan for aftercare: Weightbear as tolerated. We will perform a dressing change at the 1 week matt in clinic. Please leave the Adaptic on and just change the dry dressings. If the Adaptic has moved, placed new Adaptic over the graft.
== END 2023-12-09 13:03 | disposition home or self-care (01) ==
PROVIDERS: PCP Internal Medicine; Referring Provider Orthopaedic Surgery; Visit Provider Orthopaedic Surgery
PROC: (CPT 13160; principal; 2023-12-09 10:15)
DX: T84.7XXA Infection and inflammatory reaction due to other internal orthopedic prosthetic devices, implants and grafts, initial encounter (principal); T81.32XA Disruption of internal operation (surgical) wound, not elsewhere classified, initial encounter
CPT/HCPCS: 13160; 15271; 15004; 20680; C1776; J0171; J0360; J0690; J1100; J1170; J2405; J2704; J3010; J3490; Q4133